=== PATIENT | female | born 1960 | race African-American/Black ===

== ENCOUNTER 2020-06-25 15:20 | Emergency (ER) | payer BC, SELFPAY ==
--- NOTE | ~2020-06-25 | XR_ITS ---
XR chest 1V portable 06/25/2020 16:14 Indication: Shortness of breath. Covid positive. Pneumonia. Procedure: AP portable chest Comparison: 07/13/2008 Findings: There are diffuse bilateral mixed interstitial and airspace infiltrates with peribronchial thickening. No pleural effusion or pneumothorax. No acute osseous abnormality. No acute osseous abnor mality. Impression: 1: Diffuse bilateral mixed interstitial and airspace infiltrates which may represent edema or pneumon ia. Reviewed, dictated and finalized at location [facility]. Impression: 1: Diffuse bilateral mixed interstitial and airspace infiltrates which may repr esent edema or pneumonia.
[2020-06-25 15:17] VITALS: BP 120/78; PULSE 98; RESP 16; TEMP 36.6; O2SAT 97
--- NOTE | 2020-06-25 15:21 | ECG_ITS ---
Measurements Intervals [place] Rate: 96 P: 53 AL: 123 QRS: 29 QRSD: 85 T: 35 QT: 353 QTc: 446 Interpretive Statements SINUS RHYTHM EARLY PRECORDIAL R/S TRANSITION BORDERLINE ST-T WAVE ABNORMALITY- INFERIOR LEADS BORDERLINE ECG Electronically Signed On 06-25-2020 16:14:01 CDT by Naveen Walker D.O.
--- NOTE | 2020-06-25 15:39 | ED.SOB ---
HPI - SOB/Dyspnea General Chief Complaint: Shortness of Breath/Dyspnea Stated Complaint: SOB, COVID + Time Seen by Provider: 06/25/20 15:25 Source: patient Mode of arrival: ambulatory Limitations: no limitations History of Present Illness HPI Narrative: 60-year-old female Patient states that Wednesday, 3 days ago, she tested Covid positive in the parking lot of [facility]. At that time she was not very symptomatic, although she had a little bit of a cough earlier in the week, and mainly got tested because she had friends who had been exposed and were being tested However subsequently she developed a cough and some shortness of breath and some muscle aches Yesterday she was seen in an emergency department elsewhere told she had pneumonia but she was discharged Today she continues to be short of breath She spoke to her doctor, and he wanted her to go to [facility] for something, but her daughter could not give her a ride so she wound up being brought here in an ambulance It is unclear if the expectation was that she was going to be sick enough to be admitted at [facility] or whether they had a monoclonal antibody infusion set for her or what Currently her room air sats are fine 96 to 99% Related Data Allergies Allergy/AdvReac Type Severity Reaction Status Date / Time erythromycin base Allergy Unknown Unverified 12/07/19 10:31 Penicillins Allergy Unknown Unverified 12/07/19 10:31 Sulfa (Sulfonamide Allergy Unknown Unverified 12/07/19 10:31 Antibiotics) Review of Systems Review of Systems: All systems reviewed & are unremarkable except as noted in HPI and below Constitutional: Constitutional: Denies chills, Reports fatigue, Reports fever(s), Denies headache(s) and Reports weakness Eyes: Eyes: Reports no additional eye complaints and Denies change in vision ENT: Denies headache(s), Denies epistaxis, Denies nasal congestion and Denies sore throat Cardiovascular: Cardiovascular: Denies chest pain, Denies leg edema, Denies palpitations and Denies dyspnea Respiratory: Respiratory: Reports cough, Reports dyspnea and Denies wheezing Gastrointestinal: Gastrointestinal: Denies abdominal pain, Denies diarrhea, Denies nausea and Denies vomiting Genitourinary: Genitourinary: Denies hematuria, Denies urinary frequency and Denies dysuria Musculoskeletal: Musculoskeletal: Reports myalgias, Denies deformity, Denies arthralgias, Denies joint swelling, Denies muscle weakness and Denies numbness Integumentary/Breasts: Skin/Breast: Denies rash and Denies wounds Neurologic: Denies headache(s), Denies focal weakness, Denies numbness and Denies weakness Psychiatric: Psychiatric: Reports no additional psychiatric complaints Endocrine: Endocrine: Reports fatigue and Denies palpitations Hematologic/Lymphatic: Hematologic/Lymphatic: Denies easy bleeding and Denies easy bruising Allergic/Immunologic: Allergic/Immunologic: Denies wheezing Exam Const: General: no acute distress, well developed, alert and awake Nutritional Appearance: well nourished Orientation/consciousness: patient oriented x3 (alert) Limitations: no limitations HENMT: Head: normocephalic and atraumatic Ears: external ears normal General nose exam: No nasal discharge present and no epistaxis Face and sinus: face symmetric Eyes: Conjunctivae: conjunctivae normal Sclera: sclerae normal EOM: EOMs intact bilaterally Neck: Neck: normal visual inspection, supple and no JVD Chest: Chest palpation & inspection: deferred Resp: Effort & Inspection: normal respiratory effort, not labored and not tachypneic Auscultation: clear to auscultation bilaterally and other (BS =) Cardio: Rate: regular rate Rhythm: regular rhythm Heart sounds: no gallops GI: Inspection: normal to inspection GI Palp: Yes Soft to palpation and No Tenderness to palpation present (GI) Back/Spine/Pelvis: Thoracic/Lumbar Spine: thoracic and lumbar spine normal to inspection Skin: General skin exam:
[2020-06-25 15:52] LABS: Basophils Percent Auto 0.3 % (0.2-1.2); Hematocrit 38.2 % (37.0-47.0); Hemoglobin 12.3 g/dL (12.0-15.0); Immature Granulocyte Absolute 0.02 K/mm3 (0.00-0.031); Immature Granulocyte Percent A 0.5 % (0-0.5); Lymphocytes Absolute Auto 1.03 K/mm3 (0.9-3.2); Lymphocytes Percent Auto 28.3 % (18.3-44.2); Mean Corpuscular HGB Conc 32.2 g/dl (32-36); Mean Corpuscular Hemoglobin 30.7 pg (26-34); Mean Corpuscular Volume 95.3 fl (80-100); Mean Platelet Volume 9.8 fl (7.4-10.4); Monocytes Absolute Auto 0.2 K/mm3 (0.1-0.6); Monocytes Percent Auto 5.5 % (2.6-8.5); Neutrophils Absolute Auto 2.4 K/mm3 (1.3-6.7); Neutrophils Percent Auto 65.4 % (45.5-73.1); Platelet Count Result 233 k/mm3 (150-375); Red Blood Count 4.01 M/mm3 (4.2-5.4); Red Cell Distribution Width 13.2 % (11.5-14.5); White Blood Count 3.6 K/mm3 (4.5-10.0)
[2020-06-25 16:08] LABS: Atypical Lymphocytes Present; Platelet Estimate Adequate (Adequate)
--- NOTE | 2020-06-25 16:18 | PC.NURSE ---
Pt walked in room with pulse oximetry. O2 saturation 93-97% while walking on room air
[2020-06-25 16:21] LABS: Alanine Aminotransferase 40 U/L (4-35); Alkaline Phosphatase 179 U/L (38-126); Anion Gap 8 mmol/L (8-16); Aspartate Amino Transferase 68 U/L (14-36); Bilirubin,Total 0.5 mg/dL (0.2-1.3); Blood Urea Nitrogen 11 mg/dL (7-17); Carbon Dioxide 30 mmol/L (22-30); Chloride 105 mmol/L (98-107); Estimated CRCL calculation 66 ml/min; Estimated Glomerular Filt Rate > 60; Glucose 88 mg/dL (65-105); Sodium 143 mmol/L (137-145)
[2020-06-25 16:27] VITALS: BP 129/80; PULSE 98; RESP 20; O2SAT 96
[2020-06-25 16:46] LABS: Potassium 3.5 mmol/L (3.4-5.0)
[2020-06-25 17:57] VITALS: BP 128/80; PULSE 96; RESP 16; O2SAT 98
== END 2020-06-25 17:58 | disposition home or self-care (01) ==
PROVIDERS: Emergency Medicine; Physician Assistant; Emergency Provider Emergency Medicine; PCP Internal Medicine
DX: U07.1 COVID-19 (principal); J12.82 Pneumonia due to coronavirus disease 2019
CPT/HCPCS: 36415; 71045; 80053; 85025; 93005; 99284

== ENCOUNTER 2023-02-25 04:05 | Emergency (ER) | payer BC, SELFPAY ==
--- NOTE | ~2023-02-25 | CT_ITS ---
Noncontrast CT scan of the lumbar spine CLINICAL HISTORY: Back pain, left-sided sciatica TECHNIQUE: Axial noncontrast imaging of the lumbar spine was performed. Sagittal and coronal reformat rufina images were constructed. Dose reduction technique was used on this scan by utilizing automated ex posure control and iterative reconstruction technique. The dose-length product (DLP) was 1018.54 mGy- cm. FINDINGS: There is no fracture or subluxation lumbar spine. Vertebral bodies maintain normal height a nd alignment. Intervertebral disc spaces are relatively well-preserved. At L1-L2, there is minimal disc bulge with mild facet arthropathy. No central canal stenosis or neura l foraminal narrowing. At L2-L3, there is minimal disc bulge with mild facet arthropathy. No central canal stenosis. There i s mild bilateral neural foraminal narrowing. At L3-L4, there is mild disc bulge with moderate facet arthropathy. Possible minimal central canal st enosis. There is mild bilateral neural foraminal narrowing. At L4-L5, there is mild disc bulge with moderate facet arthropathy. Possible minimal central canal st enosis. There is moderate to advanced left neural foraminal narrowing, and moderate right neural fora era narrowing. L5-S1, there is minimal disc bulge. No central canal stenosis or neural foraminal narrowing. Paravertebral soft tissues are unremarkable. Impression: [id number] degenerative spondylosis at the lower lumbar spine, as detailed above. Reviewed, dictated and finalized at [facility]. [employer]S TECHNICIAN Impression: [id number] degenerative spondylosis at the lower lumbar spine, as detaile d above.
[2023-02-25 04:06] VITALS: BP 131/75; PULSE 92; RESP 22; TEMP 36.3; O2SAT 100
--- NOTE | 2023-02-25 04:58 | ED.GENADULT ---
HPI - General Adult General Chief complaint: Back Pain/Injury Stated complaint: lower back, L Leg pain Time Seen by Provider: 02/25/23 04:24 History of Present Illness HPI narrative: patient is a 62-year-old female who presents emerged from with chief complaint of low back pain and pain radiating down the left leg. The patient reports that this has been ongoing for 1 week reports the pain has gotten worse worse with movement and improved with rest patient denies bowel or bladder dysfunction denies numbness or tingling denies saddle anesthesia patient reports no trauma reports no history of neoplasm. Related Data Allergies Allergy/AdvReac Type Severity Reaction Status Date / Time erythromycin base Allergy Unknown Unknown Verified 02/25/23 04:59 Penicillins Allergy Unknown Unknown Verified 02/25/23 04:59 Sulfa (Sulfonamide Allergy Unknown Unknown Verified 02/25/23 04:59 Antibiotics) doxycycline AdvReac Rash Verified 02/25/23 04:59 tetracycline AdvReac Rash Verified 02/25/23 04:59 Review of Systems Review of Systems: A 10 system review of systems was completed on the patient and is negative except for what is stated in the HPI. Nursing and ancillary documentation was reviewed. Exam Narrative: GENERAL: Well-appearing, well-nourished, and in no acute distress. HEAD: Normocephalic, atraumatic. EYES: PERRLA and EOMI. ENT: Nares clear, no rhinorrhea or epistaxis. Mucous membranes moist. NECK: Supple. CHEST: Clear to auscultation. No respiratory distress. HEART: Regular rate and rhythm. No murmur heard. Normal peripheral pulses. ABDOMEN: Soft, nontender, nondistended, normal active bowel sounds. EXTREMITIES: Normal range of motion. No edema. tenderness to palpation of the left SI joint SKIN: Warm, dry, no rash. NEURO: No focal deficits. Alert and oriented x3. No saddle anesthesia no footdrop PSYCH: Normal mood and affect. Course Vital Signs Vital signs: Vital Signs Temperature 36.3 C L 02/25/23 04:06 Pulse Rate 92 02/25/23 04:06 Respiratory Rate 22 H 02/25/23 04:06 Blood Pressure 131/75 02/25/23 04:06 Pulse Oximetry 100 02/25/23 04:06 Oxygen Delivery Room Air 02/25/23 04:06 Temperature 36.3 C L 02/25/23 04:06 Pulse Rate 90 02/25/23 05:07 Respiratory Rate 15 02/25/23 05:07 Blood Pressure 123/71 02/25/23 05:07 Pulse Oximetry 92 02/25/23 05:07 Oxygen Delivery Room Air 02/25/23 04:06 Medical Decision Making MDM Narrative Medical decision making narrative: differential diagnosis includes lumbar fracture, sciatica, degenerative disc disease CT scan of the lumbar spine [id number] degenerative spondylosis at the lower lumbar spine, as detailed above. patient's pain was controlled emerged throat usually discharged home with a Vital Signs Vital Signs: Vital Signs Temperature 36.3 C L 02/25/23 04:06 Pulse Rate 92 02/25/23 04:06 Respiratory Rate 22 H 02/25/23 04:06 Blood Pressure 131/75 02/25/23 04:06 Pulse Oximetry 100 02/25/23 04:06 Oxygen Delivery Room Air 02/25/23 04:06 Temperature 36.3 C L 02/25/23 04:06 Pulse Rate 90 02/25/23 05:07 Respiratory Rate 15 02/25/23 05:07 Blood Pressure 123/71 02/25/23 05:07 Pulse Oximetry 92 02/25/23 05:07 Oxygen Delivery Room Air 02/25/23 04:06 Discharge Plan Discharge Clinical Impression: Sciatica Patient Disposition: Home, Self-Care Condition: Stable Instructions: Antibiotic Form, Sciatica (ED), Back Pain (ED) Additional Instructions: please follow-up with your primary care provider in the next 1-2 weeks. If your symptoms worsen please return to the emergency department for re-evaluation. Prescriptions: New prednisone 20 mg tablet 40 mg PO DAILY 5 Days Qty: 10 0RF cyclobenzaprine 10 mg tablet 10 mg PO TID PRN (Reason: muscle spasm) Qty: 21 0RF hydrocodone-acetaminophen 5-325 mg tablet 1 tablet PO Q6H PRN (Reason: pain
[2023-02-25] MEDS: methylPREDNISolone SOD SUCC 125 MG VIAL IV PUSH (05:06)
[2023-02-25 05:07] VITALS: BP 123/71; PULSE 90; RESP 15; O2SAT 92
[2023-02-25] MEDS: diazePAM INJ (*CRX) 10 MG/2 ML SYRINGE 5 MG IV PUSH (05:07)
[2023-02-25] MEDS: HYDROmorphone HCL INJ (*CRX) 1 MG/ML SYR IV PUSH (05:07)
[2023-02-25] MEDS: KETOROLAC 30 MG/ML VIAL (*BKC) IV PUSH (05:07)
[2023-02-25 06:22] VITALS: BP 124/68; PULSE 85; RESP 15; O2SAT 98
[2023-02-25] MEDS: ONDANSETRON INJ 4 MG/2 ML VIAL IV PUSH (06:22)
[2023-02-25 06:28] LABS: Appearance Urine Turbid (Clear); Bacteria Urine None Seen /hpf; Bilirubin Urine Negative (Negative); Blood Urine Negative (Negative); Color Urine Yellow (Yellow); Glucose Urine UA Negative (Negative); Ketones Urine Negative (Negative); Leukocyte Esterase Ur Trace LEU/UL (Negative); Nitrate Urine Negative (Negative); Non Pathogenic Casts 0-2; Protein Urine Negative (Negative); Specific Grav Ur 1.013 (1.001-1.035); Squamous Epithelial Cell Urine Few /hpf (Few); Urobilinogen Urine 0.2 mg/dL (<2.0)
[2023-02-25 06:54] LABS: Add Urine Microscopic? YES
== END 2023-02-25 07:14 | disposition home or self-care (01) ==
PROVIDERS: Emergency Provider Emergency Medicine
DX: M54.30 Sciatica, unspecified side (principal)
CPT/HCPCS: 72131; 81001; 87086; 87088; 96374; 96375; 99284; J1170; J1885; J2405; J2930; J3360

== ENCOUNTER 2024-05-02 07:01 | Inpatient (IN) | payer BC, SELFPAY ==
[2024-05-02] VITALS (11 sets, daily range): BP systolic 114–161; BP diastolic 62–87; PULSE 80–101; RESP 13–22; TEMP 36.1–36.6; O2SAT 93–100; BMI 34.9
--- NOTE | ~2024-05-02 | CT_ITS ---
EXAMINATION: CT abdomen pelvis w con DATE: 05/11/2024 11:06 INDICATION: Small bowel obstruction. TECHNIQUE: Computed tomography (CT) of the abdomen and pelvis was performed with 100 mL Omnipaque 350 intravenous contrast. Automated exposure control and iterative reconstruction technique were employe d. The dose-length product was 1042.32 mGy-cm. COMPARISON: CT abdomen and pelvis 05/02/2024 FINDINGS: The visualized portions of the lung bases demonstrate mild atelectasis. No pleural effusion . The heart size is normal. No pericardial effusion. The liver and spleen are normal. The gallbladder is absent. The pancreas, adrenal glands, and right kidney are normal. There is a 9 mm cyst in left k idney. There is oral contrast in the small bowel and colon. The appendix is normal. There are multipl e dilated loops of small bowel without focal transition point. There is a small volume of pelvic asci janes. There are no pathologically enlarged lymph nodes. Body wall edema is noted. There is mild thorac ic and lumbar spondylosis. IMPRESSION: 1. Dilated small bowel, likely adynamic ileus. 2. Small volume of pelvic ascites. Reviewed, dictated and finalized at location A. ICAL RESEARCH NURSE COORDINATOR
--- NOTE | ~2024-05-02 | CT_ITS ---
EXAMINATION: CT abdomen pelvis w con DATE: 05/02/2024 09:33 INDICATION: Lower abdominal pain TECHNIQUE: Computed tomography (CT) of the abdomen and pelvis was performed with 100 mL Omnipaque-350 intravenous contrast. Automated exposure control and iterative reconstruction technique were employe d. The dose-length product was 788.39 mGy-cm. COMPARISON: None FINDINGS: Mild dependent atelectasis in bilateral lower lobes and discoid atelectasis at the lingula. Heart siz e normal. No pericardial or pleural effusion. 4 mm. The liver capsule contour with 4 mm underlying lo w-attenuation lesion along the posterior margin of the right hepatic lobe which appears unchanged sin ce lumbar spine CT dated favoring an indeterminate benign etiology. Common bile duct measur es up to 9 mm diameter which is likely related to prior cholecystectomy. Pancreas, spleen, bilateral adrenal glands and right kidney are normal. 6 mm cyst at the lower pole the left kidney. Normal appen sailaja. There are few loops of small bowel in the pelvis containing fluid and small amounts of pseudofec es. There are a couple closely opposed abrupt transition points in close apposition in the deep right hemipelvis with configuration suspicious for a closed loop small bowel obstruction although the inte rvening bowel is not frankly dilated. The more proximal small bowel is relatively decompressed throug hout. Bladder is normal. The uterus is not identified and has likely been surgically resected. No tawny e intraperitoneal gas or fluid. No pathologically enlarged abdominal or pelvic lymphadenopathy. Mild thoracic and lumbar spondylosis. IMPRESSION: 1. A couple abrupt transition points in close apposition in the deep pelvis with intervening fluid-fi lled but not frankly dilated small bowel suspicious for early closed loop obstruction. Dr. Portillo garcia iscussed these findings with Dr. Greenwood at 10:09 AM. Reviewed, dictated and finalized at location A. TENANCE SCHEDULER IMPRESSION: 1. A couple abrupt transition points in close apposition in the deep pelvis wit h intervening fluid-filled but not frankly dilated small bowel suspicious for e leny closed loop obstruction. Dr. Nath discussed these findings with Dr. Anaya adames at 10:09 AM.
--- NOTE | ~2024-05-02 | XR_ITS ---
EXAMINATION: XR abdomen/kub 1V DATE: 05/10/2024 11:13 INDICATION: Abdominal pain. TECHNIQUE: A supine view of the abdomen on 2 radiographs was obtained. COMPARISON: Small bowel series 05/03/2024, CT abdomen and pelvis 05/02/2024 FINDINGS: There are multiple dilated loops of small bowel. There is oral contrast in the colon, which is normal in caliber. IMPRESSION: 1. Persistently dilated small bowel, consistent with small bowel obstruction. Reviewed, dictated and finalized at location A. ASSISTANT
--- NOTE | ~2024-05-02 | XR_ITS ---
Exam: Abdomen 1V HISTORY: ng placement TECHNIQUE: Supine images of the lower chest and upper abdomen FINDINGS: Nasogastric tube extends into the contrast opacified stomach. IMPRESSION: Nasogastric tube in good position and ready for immediate use. Reviewed, dictated and finalized at location A. CTOR OF CORPORATE SALES
--- NOTE | ~2024-05-02 | XR_ITS ---
EXAMINATION: XR sm bowel follow through DATE: 05/03/2024 16:24 INDICATION: Small bowel obstruction. TECHNIQUE: Oral contrast was administered, and a time course of radiographs of the abdomen was obtain ed. Fluoroscopy of the small bowel was not performed. Fluoroscopy exposure time was 0 minutes. The to denisse number of images was 11. COMPARISON: CT abdomen and pelvis 05/02/2024 FINDINGS: There are dilated loops of small bowel. There is no contrast in the colon at 4 hours. IMPRESSION: 1. Small bowel obstruction. Reviewed, dictated and finalized at location A. TH PRACTICE MANAGER IMPRESSION: 1. Small bowel obstruction.
--- NOTE | ~2024-05-02 | XR_ITS ---
EXAMINATION: XR abdomen gastric tube insert DATE: 05/06/2024 11:05 INDICATION: Nasogastric tube placement. TECHNIQUE: An upright view of the abdomen was obtained. COMPARISON: Abdomen radiograph 05/03/2024 FINDINGS: The lower abdomen is excluded. There are no dilated loops of bowel. The nasogastric tube ti p is in the stomach. IMPRESSION: 1. Nasogastric tube tip in the stomach. Reviewed, dictated and finalized at location A. M STITCHER
--- OUTSIDE RECORDS SUMMARY | 2024-05-02 07:03 | XMS_ITS | Clinical Summary ---
Author Organization [facility] Care Team Providers Care In Store Marketer Name Role Phone Unavailable Primary Care Provider Unavailabl e Social History Tobacco Use Types Packs/Day Years Used Date Smoking Tobacco: Never Assessed Comments Unknown Sex and Gender Information Value Date Recorded Sex Assigned at Not on file Legal Sex Female 9:27 AM CDT Gender Identity Not on file Sexual Orientation Not on file Plan of Treatment Health Maintenance Due Date Last Done Comments Hepatitis C Virus (HCV) Screening 1961 TdaP Immunization 1961 Pap Smear 1982 Cervical Cancer Screening (CCS) 1991 HPV/Cotest 1991 Colonoscopy 2006 Colorectal Cancer Screening 2006 Cologuard 2011 Immunochemical Fecal Occult Blood 2011 Mammogram 2011 Pneumococcal Immunization (5 0+ years) (1 of 1 - PCV) 2011 Zoster Immunization (1 of 2) 2011 Influenza Immunization (#1) 2023 SARS-COV-2 Immunization ( season) 2023 06/07/2020 Respiratory Syncytial Virus (RSV) Immunization (Adult) (1 - 1-dose 75+ series) 2036 Hepatitis B Immunization Aged Out No longer eligible based on patient's age to complete this topic Meningococcal Immunization (ACWY) Aged Out No longer eligible based on patient's age to complete this topic Pneumococcal Immunization Combined Aged Out No longer eligible based on patient's age to complete this topic Rotavirus Immunization Aged Out No lo nger eligible based on patient's age to complete this topic
--- OUTSIDE RECORDS SUMMARY | 2024-05-02 07:03 | XMS_ITS | Encounter Summary ---
Author Organization [facility] Address 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
--- OUTSIDE RECORDS SUMMARY | 2024-05-02 07:03 | XMS_ITS | Referral Summary ---
Author Organization [facility] Healthcare Address [address] [place] [address] Care Team Providers Care Computer Aided Design Operator Name Role Phone Patrick Salvador MD Primary Care Provider [phone] Encounters Date Type Department Care Team Description 02/14/2024 2:00 PM TIE IN HAND Telemedicine [facility] Neuro Sleep [address] 6th [address] [place] [id number] Kale Tenorio MD DIANDRA on CPAP (Primary Dx) from Last 3 Months Allergies Active Allergy Reactions Criticality Noted Date Comments Amoxicillin Rash Reaction: Rash, , Erythromycin Other (See comments) Reaction: Chest pain, , , Penicillins Potassium Rash Reaction: Rash, Tetracyclines Itching Reaction: Itching, Medications naproxen (NAPROSYN) 500 mg tablet TAKE 1 TABLET BY MOUTH TWICE A DAY NEEDED FOR PAIN 60 tablet 4 Active venlafaxine XR (EFFEXOR-XR) 75 mg 24 hr capsule Take 1 capsule (75 mg total) by mouth daily 90 capsule 3 4 Active gabapentin (NEURONTIN) 300 mg capsule Take 1 capsule (300 mg total) by mouth nightly 90 capsule 3 4 Active amLODIPine (NORVASC) 5 mg tablet TAKE 1 TABLET (5 MG TOTAL) BY MOUTH DAILY. 90 tablet 3 4 Active glycopyrrolate (ROBINUL) 1 mg tablet PLEASE SEE ATTACHED FOR DETAILED DIRECTIONS 4 Active nystatin-triamci nolone ointmentIndicati ons:cutaneous candidiasis Apply topically 2 (two) times a day Apply to external vulva skin BID for 7-14 days then use prn 30 g 1 4 Active Active Problems Problem Noted Date Diagnosed Date Episodic tension-type headache, not intractable 2022 Insomnia 01/17/2021 Recurrent major depressive disorder 08/13/2016 Overview (08/21/2016): Major depression, recurrent, chronic Assessment & Plan (09/28/2023 12:30 PM CDT): Continue with venlafaxine. Assessment & Plan (09/23/2021 2:22 PM CDT): Mood stable on venlafaxine. Benign hypertension 08/08/2015 Overview (07/03/2016): Benign hypertension Assessment & Plan (09/28/2023 12:30 PM CDT): Target BP less than 130/80. Continue current diet and amlodipine. Assessment & Plan (09/25/2022 3:07 PM CDT): Target BP less than 130/80. Continue current diet, exercise and amlodipine. Check CBC, CMP and FLP. Assessment & Plan (09/23/2021 2:22 PM CDT): Target BP <140/90. Continue current diet and amlodipine. Check CBC, CMP and FLP. Torn cartilage 03/21/2015 Obstructive sleep apnea syndrome 09/07/2014 Overview (07/02/2016): Obstructive sleep apnea Assessment & Plan (09/28/2023 12:30 PM CDT): Continue CPAP; using nightly benefit. Migraine without aura and wi thout status migrainosus, not intractable 05/16/2014 Overview (07/02/2016): Migraine Assessment & Plan (09/28/2023 12:29 PM CDT): Continue current diet, gabapentin, p.r.n. naproxen Assessment & Plan (09/25/2022 3:06 PM CDT): Continue combination of venlafaxine and gabapentin. Managed by Neurology. History of colonic polyps 05/16/2014 Overview (07/02/2016): Personal history of colonic polyps Assessment & Plan (09/28/2023 12:30 PM CDT): Up-to-date on colonoscopy. Assessment & Plan (09/25/2022 3:07 PM CDT): Up-to-date on colonoscopy. 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 Managed by Neurology. Anxiety 05/18/2007 Overview (07/09/2017): Description: for the past year Resolved Problems Problem Noted Date Diagnosed Date Resolved Date Hypertension 08/10/2013 05/07/2017 Overview (07/03/2016): Hypertension Anaclitic depression 03/11/2010 018 Immunizations Name Administration Dates Next Due Influenza, Quadrivalent, Spl it, Preservative Free, Intramuscular 12/28/2019,12/27/2018 Influenza, Trivalent, IM (MDV) 01/10/2015,2013 Influenza, Unspecified 12/27/2021,2017,12/27/2017,12/27,12/27/2016 Pfizer SARS-CoV-2 Monovalent Vaccination (12+ Yrs) PURPLE 03/19/2021,09/19/2020,06/07/2020 Pfizer Sars-Cov-2 Bivalent V accination (12+ YRS) 02/26/2022 ZOSTER Recombinant 12/04/2021,09/23/2021 Social History Tobacco Use Types Packs/Day Years Used Date Smoking Tobacco: Former Smokeless Tobacco: Never Tobacco Cessation:Counseling Given: Not Answered Alcohol Use Standard Drinks/Week Comments No 0 (1 standard drink = 0.6 oz pur e alcohol) AUDIT-C Answer Date Recorded Q1: How often do you have a drink containing alc ohol? 2-4 times a month 01/06/2023 Q2: How many drinks containi ng alcohol do you have on a typical day when you are drinking? 1 or 2 01/06/2023 Q3: How often do you have si x or more drinks on one occasion? Never 01/06/2023 PHQ-2 Answer Date Recorded PHQ-2 Total Score 0 09/28/2023 Comments No Sex and Gender Information Value Date Recorded Sex Assigned at Not on file Legal Sex Female 12:35 AM TIE IN HAND Gender Identity Female 01/10/2021 12:31 PM CDT Sexual Orientation Straight 01/10/2021 12 :31 PM CDT Last Filed Vital Signs Vital Sign Reading Time Taken Comments Blood Pressure 126/83 10/04/2023 7:57 AM CDT Pulse 107 09/28/2023 11:05 AM CDT Temperature 36.4 ??C (97.5 ??F) 07/06/2023 3:23 PM CD T Respiratory Rate 18 10/15/2020 11:20 AM CDT Oxygen Saturation 99% 09/28/2023 11:05 AM CDT Inhaled Oxygen Concentration - - Weight 85.8 kg (189 lb 3.2 oz) 10/04/2023 7:57 A M CDT Height 157.5 cm (5' 2 ) 10/04/2023 7:57 AM CDT Body Mass Index 34.61 10/04/2023 7:57 AM CDT Plan of Treatment Not on file Procedures Procedure Name Priority Date/Time Associated Diagnosis Comments SCREENING MAMMOGRAM BILATERAL W JUVENAL Schedule Routine, Read Routine (OP Routine) 11/09/2023 2:18 PM CDT Screening mammogram, encounter for COLONOSCOPY 10/15/2020 10:04 AM CDT from Last 3 Months or Most Recently Relevant to Health Maintenance Results * Screening Mammogram Bilateral W Juvenal (11/09/2023 2:18 PM CDT) Anatomical Region Laterality Modality Breast Bilateral Mammography Narrative 11/11/2023 8:55 AM CDT Mammogram Technique: Bilateral Digital Breast Tomosynthesis, Bilateral C-view 2D Screening mammogram. ??Views obtained: ??bilateral craniocaudal and bilateral mediolateral oblique. ??Computer Aided Detection was performed. Mammogram Findings: The present examination has been compared to prior imaging studies performed at [facility] on 09/04/2020, 10/03/2021 and 10/29/2022. There are scattered areas of fibroglandular density. There is no suspicious abnormality in either breast. Impression: There is no mammographic evidence of malignancy. Annual screening mammography is recommended. OVERALL FINAL ASSESSMENT: BI-RADS CATEGORY 1: ??Negative. Procedure Note Tigist Ayala MD - 11/11/2023 Mammogram Technique: Bilateral Digital Breast Tomosynthesis, Bilateral C-view 2D Screening mammogram. Views obtained: bilateral craniocaudal and bilateral mediolateral oblique. Computer Aided Detection was performed. Mammogram Findings: The present examination has been compared to prior imaging studies performed at [facility] on 09/04/2020, 10/03/2021 and 10/29/2022. There are scattered areas of fibroglandular density. There is no suspicious abnormality in either breast. Impression: There is no mammographic evidence of malignancy. Annual screening mammography is recommended. OVERALL FINAL ASSESSMENT: BI-RADS CATEGORY 1: Negative. us Self Screening Mammogram IMG MAMMO PROCEDURES Fi nal Result * COLONOSCOPY (10/15/2020 10:04 AM CDT) Anatomical Region Laterality Modality Other Narrative Procedure Note Julien Bland MD - 10/15/2020 10:04 AM CDT ENDOSCOPY LAB Patient Name: Yusra Mcmillan Procedure Date: 10/15/2020 10:04 AM Date of : 1960 Admit Type: Outpatient Age: 60 Gender: Female Attending MD: Julien Bland M.D. Room: [facility] ENDOSCOPY ROOM 04 Note Status: Finalized Procedure: Colonoscopy Indications: Surveillance: Personal history of adenomatouspolyps, though none on last colonoscopy 08/2015 Providers: Julien Bland M.D. Referring MD: Patrick Salvador M.D. Medicines: Monitored Anesthesia Care Complications: No immediate complications. Estimated Blood Loss: Estimated blood loss was minimal. Procedure: Pre-Anesthesia Assessment: - The risks and benefits of the procedure and the sedation options and risks were discussed with the patient. All questions were answered and informed consent was obtained. - Immediately prior to administration ofmedications, the patient was re-assessed for adequacy to receive sedatives. - Assessment per Anesthesia The benefits, risks and alternatives of theprocedure and sedation were discussed and informed consentwas obtained. All questions were answered. Please referto the signed informed consent document in the medical record. The scope was passed under direct vision.The [id number] was introduced through the anusand advanced to the cecum, identified by appendiceal orifice and ileocecal valve. The colonoscopy was performed without difficulty. The patient tolerated the procedure well. The quality of the bowel preparation was adequate. The quality of the bowel preparation was evaluated using the BBPS (BostonBowel Preparation Scale) with scores of: Right Colon = 3 (entire mucosa seen well with no residual staining, small fragments of stool or opaque liquid),Transverse Colon = 3 (entire mucosa seen well with no residual staining, small fragments of stool or opaqueliquid) and Left Colon = 3 (entire mucosa seen well with no residual staining, small fragments of stool oropaque liquid). The total BBPS score equals 9. The bowel preparation used was Miralax. Findings: The perianal and digital rectal examinations were normal. Pertinent negatives include no palpable rectal lesions. Multiple sessile polyps were found in the recto-sigmoid colon. The polyps were small in size. Several of thesee polyps were removed witha cold snare for sampling. Resection and retrieval were complete. The exam was otherwise without abnormality on direct and retroflexion views. Impression: - Multiple small hyperplastic appearing polyps atthe recto-sigmoid colon. Several were removed with acold snare for sampling. Resected and retrieved. - The examination was otherwise normal on directand retroflexion views. Recommendation: - Await pathology results. - Repeat colonoscopy for surveillance based on pathology results. If the polyps are hyperplastic, repeat in 10 years. If the polyps are adenomatous, recommend flex sig within 6 months to complete resection of remaining polyps. - Return to referring physician as previously scheduled. Attending Participation: I personally performed the entire procedure. Electronically signed by Julien Bland MD Julien Bland M.D. 10/15/2020 11:00:42 AM Number of Addenda: 0 Note Initiated On: 10/15/2020 10:04 AM Julien Mckeon MD ENDOSCOPY PROCEDURES Final Res ult from Last 3 Months or Most Recently Relevant to Health Maintenance Insurance ANTHEM ACCESS CHOICE ANTHEM ACCESS CHOICE ANTHEM ACCESS CHOICE Advance Directives For more information, please contact: [phone] * Full Code (Latest Code Status on File) Date Activated Date Inactivated Comments 10/15/2020 9:00 AM 10/15/2020 3:31 PM Care Teams Computer Aided Design Operator Relationship Specialty Start Date End Date Patrick Salvador MD [facility] [address] [address] PCP - General 06/26/16
--- OUTSIDE RECORDS SUMMARY | 2024-05-02 07:03 | XMS_ITS | Clinical Summary ---
Author Organization [facility] Address [address] Leighn: Epic Prelude ADT [place] [address] Care Team Providers Care Rate Examiner Name Role Phone Unavailable Primary Care Provider Unavailabl e Social History Tobacco Use Types Packs/Day Years Used Date Smoking Tobacco: Never Assessed Comments Unknown Sex and Gender Information Value Date Recorded Sex Assigned at Not on file Legal Sex Female 4:39 AM BEHAVIORAL HEALTH RN Gender Identity Not on file Sexual Orientation Not on file Plan of Treatment Health Maintenance Due Date Last Done Comments DTAP/TDAP/TD VACCINES (1 - Tdap) 1980 CERVICAL CANCER SCREENING 1991 BREAST CANCER SCREENING 2001 COLORECTAL SCREENING 2006 Colorectal Cancer Screening 2006 FIT-DNA Q 3 years 2006 FIT/FOBT Q 1 year 2006 Flex Sig/CT Colonography Q 5 years 2006 ZOSTER VACCINE (1 of 2) 2011 INFLUENZA VACCINE (#1) 2023 RSV VACCINE (60+ or ) (1 - 1-dose 75+ series) 2036 PNEUMOCOCCAL VACCINE 0-64 YEARS Aged Out No longer eligible based on patient's age to complete this topic
--- OUTSIDE RECORDS SUMMARY | 2024-05-02 07:03 | XMS_ITS | Clinical Summary ---
Author Organization [facility] Address [address] [place] [address]. [place] [address] [place] [address] Care Team Providers Care Denitrator Operator Name Role Phone None, Provider MD Primary Care Provider Unavaila ble Allergies Active Allergy Reactions Criticality Noted Date Comments Amoxicillin Rash Low 06/23/2020 Erythromycin Chest pressure 06/23/2020 Penicillins Rash Low 06/23/2020 Social History Tobacco Use Types Packs/Day Years Used Date Smoking Tobacco: Never Smokeless Tobacco: Never Alcohol Use Standard Drinks/Week Comments Not Currently 0 (1 standard drink = 0.6 oz pur e alcohol) Comments No Sex and Gender Information Value Date Recorded Sex Assigned at Not on file Legal Sex Female 10:09 AM CDT Gender Identity Not on file Sexual Orientation Not on file Last Filed Vital Signs Vital Sign Reading Time Taken Comments Blood Pressure 136/85 06/23/2020 2:33 PM CDT Pulse 96 06/23/2020 2:33 PM CDT Temperature 38.3 ??C (101 ??F) 06/23/2020 10:15 AM CD T Respiratory Rate 20 06/23/2020 2:33 PM CDT Oxygen Saturation 97% 06/23/2020 2:33 PM CDT Inhaled Oxygen Concentration - - Weight 81.6 kg (180 lb) 06/23/2020 10:15 AM CDT Height 165.1 cm (5' 5 ) 06/23/2020 10:15 AM CDT Body Mass Index 29.95 06/23/2020 10:15 AM CDT Plan of Treatment Health Maintenance Due Date Last Done Comments Cervical Cancer Screening Pap Smear (Age 30 to 64) Every 3 Years 1960 Colorectal Cancer Screening Colonoscopy (10 Years) 1961 Annual Physical 1964 Hepatitis C 1979 DTaP, Tdap and Td Vaccines (1 - Tdap) 1980 Cervical Cancer Screening Pap with HPV Testing (Age 30 to 64) Every 5 Years 1991 Cervical Cancer Screening with HPV 1991 Mammogram Screening 2001 Zoster Vaccines (1 of 2) 2011 COVID-19 Vaccine (2 - season) 2023 06/07/2020 Influenza Adult (#1) 2023 12/27/2018, 12/27/2017, 12/27/2016, Additional history exists RSV Immunization or 60+ Years (1 - 1-dose 75+ series) 2036 Meningococcal B Vaccine Aged Out No l onger eligible based on patient's age to complete this topic Meningococcal Vaccine Aged Out No francisca dane eligible based on patient's age to complete this topic Pneumococcal Vaccine: Pediatrics (0 to 5 Years) and At-Risk Patients (6 to 64 Years) Aged Out No longer eligible based on patient's age to complete this topic RSV Immunizations Under 20 Months Aged Out No longer eligible based on patient's age to complete this topic Insurance [facility] Care Teams Denitrator Operator Relationship Specialty Start Date End Date None, Provider, PCP - General 06/23/20
--- OUTSIDE RECORDS SUMMARY | 2024-05-02 07:03 | XMS_ITS | Clinical Summary ---
Author Organization [facility] Healthcare Address [address] [place] [address] Care Team Providers Care Surgical Lead Name Role Phone Patrick Salvador MD Primary Care Provider [phone] Allergies Active Allergy Reactions Criticality Noted Date [...] Overview (07/03/2016): Hypertension Anaclitic depression 03/11/2010 018 Encounters Date Type Department Care Team Description 02/14/2024 2:00 PM ERGONOMICS TECHNICIAN Telemedicine [facility] Neuro Sleep [address] 6th [address] [place] [address] Kale Tenorio MD DIANDRA on CPAP (Primary Dx) from Last 3 Months Immunizations Name Administration Dates Next Due Influenza, Quadrivalent, Spl it, Preservative Free, Intramuscular 12/28/2019,12/27/2018 Influenza, Trivalent, IM (MDV) 01/10/2015,2013 Influenza, Unspecified 12/27/2021,2017,12/27/2017,12/27,12/27/2016 Pfizer SARS-CoV-2 Monovalent Vaccination (12+ Yrs) PURPLE 03/19/2021,09/19/2020,06/07/2020 Pfizer Sars-Cov-2 Bivalent V accination (12+ YRS) 02/26/2022 ZOSTER Recombinant 12/04/2021,09/23/2021 Surgical History Surgery Date Site/Laterality Comments HYSTERECTOMY Hysterectomy TONSILLECTOMY Tonsillectomy CHOLECYSTECTOMY Cholecystectomy OTHER SURGICAL HISTORY fibroid uterus: Hysterectomy, total abdominal, BSO OTHER SURGICAL HISTORY Right meniscus tear: Arthroscopy knee Medical History Medical History Date Comments Hx Other Medical fibroid uterus Hx Other Medical meniscus tear Family History Medical History Relation Name Comments Lung cancer Father Cancer, lung; C ause of : Cancer, lung Migraines Father Migraines; Heart attack Maternal Grandmother Myocard ial infarction; Diabetes type II Mother Diabetes me llitus type 2; Hypertension Mother Hypertension; Other Mother Alive and well; Hyperlipidemia Other Family histor y of Hyperlipidemia; Breast cancer Sister 2 Cancer, breast ; Rheum arthritis Sister 3 Rheumatoid a rthritis; Other Sister 4 Alive and well; Relation Name Status Comments Father Maternal Grandmother Mother Alive Other Sister 1 Alive Sister 2 Sister 3 Sister 4 Social History Tobacco Use Types Packs/Day Years [...] on file Legal Sex Female 12:35 AM ERGONOMICS TECHNICIAN Gender Identity Female 01/10/2021 12:31 PM CDT Sexual Orientation Straight 01/10/2021 12 :31 PM CDT Obstetrics History Para Term AB IAB SAB Ectopic Multiple Livin g Live Births 3 2 2 1 2 2 Date Outcome GA Total Labor Labor/2nd/3rd Weight Sex Type Anes PTL Nathaly A1 A5 Name Clin 1979 AB 12w0 d 1993 Term F Vag-S pont Living 1996 Term M Vag-S pont Living Last Filed Vital Signs Vital Sign Reading [...] 10/04/2023 7:57 AM CDT Plan of Treatment Health Maintenance Due Date Last Done Comments Hepatitis C Screening 1960 DTaP/Tdap/Td Vaccine (1 - Tdap) 1972 Hepatitis B Screening 1979 Covid-19 Vaccine ( season) 2023 02/26/2022, 03/19/2021, 09/19/2020, Additional history exists Depression Screening 09/27/2024 09/28/2023, 09/25/2022, 09/23/2021, Additional history exists Regular Well Visit/Exam 18-64 09/27/2024 09/28/2023, 09/25/2022, 09/23/2021, Additional history exists Breast Cancer Screening-Mammogram 11/08/2024 11/09/2023, 10/29/2022, 10/03/2021, Additional history exists Colon Cancer Screening-Colonoscopy 10/15/2030 10/15/2020, 09/12/2015 Colon Cancer Screening-CT Colonography Discontinued 10/15/2020, 09/12/2015 Colon Cancer Screening-DNA Stool Discontinued 10/15/2020, 09/12/2015 Colon Cancer Screening-FIT Discontinued 10/15/2020, Colon Cancer Screening-Sigmoidoscopy Discontinued 10/15/2020, 09/12/2015 Zoster Vaccine Completed 12/04/2021, 09/23/2021 Influenza Vaccine Completed 01/24/2024, , 12/27/2021, Additional history exists Pneumococcal vaccine <65 Aged Out No longer eligible based on patient's age to complete this topic Procedures Procedure Name Priority Date/Time Associated Diagnosis [...] compared to prior imaging studies performed at [facility] on 09/04/2020, 10/03/2021 and 10/29/2022. There are [...] compared to prior imaging studies performed at [facility] on 09/04/2020, 10/03/2021 and 10/29/2022. There are [...] Female Attending MD: Julien Bland M.D. Room: [facility] ENDOSCOPY ROOM 04 Note Status: [...] The scope was passed under direct vision.The [id number] was introduced through the anusand advanced to [...] 0 Note Initiated On: 10/15/2020 10:04 AM us Julien Mckeon MD ENDOSCOPY PROCEDURES Final Res ult from Last 3 Months or Most Recently Relevant to Health Maintenance Insurance [employer] [facility] ACCESS CHOICE Advance Directives For more information, please contact: [phone] * Full Code (Latest Code Status on File) Date Activated Date Inactivated Comments 10/15/2020 9:00 AM 10/15/2020 3:31 PM Care Teams Surgical Lead Relationship Specialty Start Date End Date Patrick Salvador MD [facility] [address] [place] [address] PCP - General 06/26/16
[2024-05-02] MEDS: ONDANSETRON INJ 4 MG/2 ML VIAL IV PUSH ×4 (08:47→22:45)
[2024-05-02] MEDS: MORPHINE SULFATE (*CRX) 4 MG/ML INJ IV PUSH (08:48)
[2024-05-02 08:50] LABS: Basophils Percent Auto 0.3 % (0.2-1.2); Hemoglobin 13.3 g/dL (12.0-15.0); Immature Granulocyte Absolute 0.02 K/mm3 (0.00-0.031); Immature Granulocyte Percent A 0.3 % (0-0.5); Lymphocytes Absolute Auto 0.94 K/mm3 (0.9-3.2); Lymphocytes Percent Auto 12.4 % (18.3-44.2); Mean Corpuscular HGB Conc 33.3 g/dl (32-36); Mean Corpuscular Hemoglobin 31.4 pg (26-34); Mean Corpuscular Volume 94.6 fl (80-100); Mean Platelet Volume 9.9 fl (7.4-10.4); Monocytes Absolute Auto 0.3 K/mm3 (0.1-0.6); Monocytes Percent Auto 3.9 % (2.6-8.5); Neutrophils Absolute Auto 6.3 K/mm3 (1.3-6.7); Neutrophils Percent Auto 83.1 % (45.5-73.1); Platelet Count Result 292 k/mm3 (150-375); Red Blood Count 4.23 M/mm3 (4.2-5.4); Red Cell Distribution Width 13.4 % (11.5-14.5); White Blood Count 7.6 K/mm3 (4.5-10.0)
[2024-05-02 09:01] LABS: Alanine Aminotransferase 21 U/L (6-35); Albumin Level 4.9 g/dL (3.5-5.1); Alkaline Phosphatase 159 U/L (38-126); Anion Gap 14 mmol/L (4-12); Aspartate Amino Transferase 26 U/L (14-36); Bilirubin,Total 0.5 mg/dL (0.2-1.3); Blood Urea Nitrogen 8 mg/dL (7-17); Calcium 10.3 mg/dL (8.4-10.2); Carbon Dioxide 26 mmol/L (22-30); Chloride 100 mmol/L (98-107); Estimated CRCL calculation 83 ml/min; Estimated Glomerular Filt Rate > 60; Glucose 129 mg/dL (65-110); Lipase 55 U/L (23-300); Potassium 3.9 mmol/L (3.4-5.0); Sodium 140 mmol/L (137-145)
--- OUTSIDE RECORDS SUMMARY | 2024-05-02 09:52 | XMS_ITS | Referral Summary ---
Author Organization [facility] Healthcare Address [address] [place] [address] Care Team Providers Care It Support Manager Name Role Phone Patrick Salvador MD Primary Care Provider [phone] Encounters Date Type Department Care Team Description 02/14/2024 2:00 PM FBI PROFILER Telemedicine [facility] Neuro Sleep [address] 6th [address] [place] [id number] Kale Tenorio MD DIANDRA on CPAP (Primary [...] on file Legal Sex Female 12:35 AM FBI PROFILER Gender Identity Female 01/10/2021 12:31 PM CDT [...] compared to prior imaging studies performed at [facility] on 09/04/2020, 10/03/2021 and 10/29/2022. There are [...] compared to prior imaging studies performed at [facility] on 09/04/2020, 10/03/2021 and 10/29/2022. There are [...] Female Attending MD: Julien Bland M.D. Room: [facility] ENDOSCOPY ROOM 04 Note Status: Finalized Procedure: [...] The scope was passed under direct vision.The [id number] was introduced through the anusand advanced to [...] Advance Directives For more information, please contact: [phone] * Full Code (Latest Code Status on File) Date Activated Date Inactivated Comments 10/15/2020 9:00 AM 10/15/2020 3:31 PM Care Teams It Support Manager Relationship Specialty Start Date End Date Patrick Salvador MD [facility] [address] [address] PCP - General 06/26/16
--- OUTSIDE RECORDS SUMMARY | 2024-05-02 09:52 | XMS_ITS | Clinical Summary ---
Author Organization [facility] Care Team Providers Care Flat Bed Operator Name Role Phone Unavailable Primary Care Provider [...]
--- OUTSIDE RECORDS SUMMARY | 2024-05-02 09:52 | XMS_ITS | Encounter Summary ---
Author Organization [facility] Address [address] [place] [address] Care Team Providers Care Drafter Construction Name Role Phone Unavailable Primary Care Provider Unavailabl e Encounter Details Date Type Department Care Team (Late st Contact Info) Description 08/20/1999 Outpatient Historical HIS MD Kosta FIGUEROA Carolyn, MD [address] [place] [address] Social History Tobacco Use Types Packs/Day Years Used Date Smoking Tobacco: Never Assessed Comments Unknown Sex and Gender Information Value Date Recorded Sex Assigned at Not on file Legal Sex Female 4:39 AM PLASTICS SPREADING MACHINE OPERATOR Gender Identity Not on file Sexual Orientation Not on file documented as of this encounter Plan of Treatment Not on file documented as of this encounter Visit Diagnoses Not on filedocumented in this encounter
--- OUTSIDE RECORDS SUMMARY | 2024-05-02 09:52 | XMS_ITS | Clinical Summary ---
Author Organization [facility] Address [address] [place] [address]. [place] [address] [place] [address] Care Team Providers Care Plant Sprayer Name Role Phone None, Provider MD Primary [...] patient's age to complete this topic Insurance [facility] Care Teams Plant Sprayer Relationship Specialty Start Date End Date None, Provider, PCP - General 06/23/20
--- OUTSIDE RECORDS SUMMARY | 2024-05-02 09:52 | XMS_ITS | Clinical Summary ---
Author Organization [facility] Address [address] [place] [address] Care Team Providers Care Artist Representative Name Role Phone Patrick Salvaodr MD Primary Care Provider Allergies Active Allergy Reactions Criticality Noted Date [...] Department Care Team Description 02/14/2024 2:00 PM IC DESIGN MANAGER Telemedicine [facility] Neuro Sleep [address] 6th [address] [place] [address] Klae Tenorio MD DIANDRA on CPAP (Primary Dx) [...] on file Legal Sex Female 12:35 AM IC DESIGN MANAGER Gender Identity Female 01/10/2021 12:31 PM CDT [...] compared to prior imaging studies performed at [facility] on 09/04/2020, 10/03/2021 and 10/29/2022. There are [...] compared to prior imaging studies performed at [facility] on 09/04/2020, 10/03/2021 and 10/29/2022. There are [...] Female Attending MD: Julien Bland M.D. Room: [facility] ENDOSCOPY ROOM 04 Note Status: Finalized Procedure: [...] The scope was passed under direct vision.The [id number] was introduced through the anusand advanced to [...] Most Recently Relevant to Health Maintenance Insurance [employer] [facility] ACCESS CHOICE Advance Directives For more information, please contact: [phone] * Full Code (Latest Code Status on File) Date Activated Date Inactivated Comments 10/15/2020 9:00 AM 10/15/2020 3:31 PM Care Teams Artist Representative Relationship Specialty Start Date End Date Patrick Salvador MD [facility] [facility] [address] [place] [address] PCP - General 06/26/16
--- OUTSIDE RECORDS SUMMARY | 2024-05-02 09:52 | XMS_ITS | Clinical Summary ---
Author Organization [facility] Address [address] Leighn: Epic Prelude [place]T [place] [id number] Care Team Providers Care Orthotics Technician Name Role Phone Unavailable Primary Care Provider Unavailabl e Social History Tobacco Use Types Packs/Day Years Used Date Smoking Tobacco: Never Assessed Comments Unknown Sex and Gender Information Value Date Recorded Sex Assigned at Not on file Legal Sex Female 4:39 AM GLOBAL COORDINATOR Gender Identity Not on file Sexual Orientation [...]
[2024-05-02 09:55] LABS: Add Urine Microscopic? YES; Appearance Urine Clear (Clear); Bacteria Urine None Seen /hpf; Bilirubin Urine Negative (Negative); Blood Urine Negative (Negative); Color Urine Yellow (Yellow); Glucose Urine UA Negative (Negative); Ketones Urine Negative (Negative); Leukocyte Esterase Ur Trace LEU/UL (Negative); Nitrate Urine Negative (Negative); Non Pathogenic Casts 0-2; Protein Urine Negative (Negative); RBC Urine 0-2 /hpf (0-2); Specific Grav Ur 1.021 (1.001-1.035); Squamous Epithelial Cell Urine Occasional /hpf (Few); WBC Urine 0-5 /hpf (0-3); pH Urine 7.5 (5.0-9.0)
[2024-05-02] MEDS: HYDROmorphone HCL INJ (*CRX) 1 MG/ML SYR IV PUSH ×3 (10:32→22:45)
[2024-05-02] MEDS: SODIUM CHLORIDE 0.9% IV 1,000 ML 150 ML IV CONT (10:35)
--- NOTE | 2024-05-02 11:01 | ED.ABDPAIN ---
HPI - Abdominal Pain General Chief Complaint: Abdominal Pain Stated Complaint: pelvic pain Time Seen by Provider: 05/02/24 08:28 Source: patient and family Mode of arrival: ambulatory Limitations: no limitations History of Present Illness HPI narrative: 64-year-old with a history of hypertension, status post hysterectomy here with complaints of severe lower abdominal pain which started 10:30 p.m. she states the pain is in the lower abdomen radiating into her right flank area. She denies any fever or chills , denies here had a cystoscopy. No previous history of diverticulosis or diverticulitis. MD elicited complaint: abdominal pain Pertinent past history: none Onset (ago): day(s) (1) Pain Consistency: constant Location: RLQ and suprapubic Severity: severe Quality: aching Radiation: R flank Exacerbating factors: nothing Relieving factors: nothing Associated symptoms: denies other symptoms Related Data Home Medications ?Medication ?Instructions ?Recorded ?Confirmed ?Last Taken ?Type amlodipine 5 mg tablet 5 mg PO DAILY 05/02/24 05/02/24 05/01/24 History gabapentin 300 mg capsule 300 mg PO QHS 05/02/24 05/02/24 05/01/24 History glycopyrrolate 1 mg tablet 1 mg PO BID 05/02/24 05/02/24 05/01/24 History venlafaxine 75 mg capsule,extended 75 mg PO DAILY 05/02/24 05/02/24 05/01/24 History release 24 hr Allergies Allergy/AdvReac Type Severity Reaction Status Date / Time erythromycin base Allergy Unknown Unknown Verified 05/02/24 08:28 Penicillins Allergy Unknown Unknown Verified 05/02/24 08:28 Sulfa (Sulfonamide Allergy Unknown Unknown Verified 05/02/24 08:28 Antibiotics) doxycycline AdvReac Rash Verified 05/02/24 08:28 tetracycline AdvReac Rash Verified 05/02/24 08:28 Review of Systems Review of Systems: All systems reviewed & are unremarkable except as noted in HPI and below Constitutional: Constitutional: Reports no additional constitutional complaints Eyes: Eyes: Reports no additional eye complaints ENT: Reports system reviewed and no additional complaints, except as documented Cardiovascular: Cardiovascular: Reports no additional cardiovascular complaints Respiratory: Respiratory: Reports no additional respiratory complaints Gastrointestinal: Gastrointestinal: Reports as per HPI Musculoskeletal: Musculoskeletal: Reports no additional musculoskeletal complaints Exam Narrative: GENERAL: Well-appearing, well-nourished, and in no acute distress. HEAD: Normocephalic, atraumatic. EYES: PERRLA and EOMI. ENT: Nares clear, no rhinorrhea or epistaxis. Mucous membranes moist. NECK: Supple. CHEST: Clear to auscultation. No respiratory distress. HEART: Regular rate and rhythm. No murmur heard. Normal peripheral pulses. ABDOMEN: Soft,tenderness in the right lower and suprapubic area , nondistended, . EXTREMITIES: Normal range of motion. No edema. SKIN: Warm, dry, no rash. NEURO: No focal deficits. Alert and oriented x3. PSYCH: Normal mood and affect. Course Course Emergency Course: Patient still remains uncomfortable enough to she received morphine for pain. Discussed lab work and CT findings with the patient and the family. When given hydromorphone for pain. Agreeable with admission. Discussed with the dr. Mora and . Vital Signs Vital signs: Vital Signs Temperature 36.6 C 05/02/24 07:07 Pulse Rate 94 05/02/24 07:07 Respiratory Rate 18 05/02/24 07:07 Blood Pressure 140/85 05/02/24 07:07 Pulse Oximetry 100 05/02/24 07:07 Oxygen Delivery Room Air 05/02/24 07:07 Temperature 36.6 C 05/02/24 07:07 Pulse Rate 89 05/02/24 10:37 Respiratory Rate 13 05/02/24 10:37 Blood Pressure 145/85 H 05/02/24 10:37 Pulse Oximetry 96 05/02/24 10:37 Oxygen Delivery Room Air 05/02/24 07:07 MDM - Abdominal Pain Differential Diagnosis Differential diagnosis: Likely abdominal pain, calculus of kidney, diverticulitis, gastroenteritis and small bowel obstruction Medical Records Attestation: I reviewed the patient's medical records. Lab Data Attestation: I reviewed the patient's lab results. 05/02/24 08:40 05/02/24 08:40 Labs: Lab Results 05/02/24 05/02/24 Range/Units 08:40 09:42 WBC 7.6 (4.5-10.0) K/mm3 RBC 4.23 (4.2-5.4) M/mm3 Hgb 13.3 (12.0-15.0) g/dL Hct 40.0 (37.0-47.0) % MCV 94.6 (80-100) fl MCH 31.4 (26-34) pg MCHC 33.3 (32-36) g/dl RDW 13.4 (11.5-14.5) % Plt Count 292 (150-375) k/mm3 MPV 9.9 (7.4-10.4) fl Immature Gran % (Auto) 0.3 (0-0.5) % Neut % (Auto) 83.1 H (45.5-73.1) % Lymph % (Auto) 12.4 L (18.3-44.2) % [place] % (Auto) 3.9 (2.6-8.5) % Eos % (Auto) 0.0 (0-4.4) % Baso % (Auto) 0.3 (0.2-1.2) % Lymph # (Auto) 0.94 (0.9-3.2) K/mm3 [place] # (Auto) 0.3 (0.1-0.6) K/mm3 Eos # (Auto) 0.0 (0-0.3) K/mm3 Baso # (Auto) 0.0 (0.0-0.1) K/mm3 Abs Immat Gran (auto) 0.02 (0.00-0.031) K/mm3 Absolute Neuts (auto) 6.3 (1.3-6.7) K/mm3 Absolute Nucleated RBC 0.000 (0.0-0.012) K/mm3 Nucleated RBC % 0.0 (0.0-0.2) % Sodium 140 (137-145) mmol/L Potassium 3.9 (3.4-5.0) mmol/L Chloride 100 (98-107) mmol/L Carbon Dioxide 26 (22-30) mmol/L Anion Gap 14 H (4-12) mmol/L BUN 8 (7-17) mg/dL Creatinine 0.59 L (0.7-1.0) mg/dL Estim Creat Clear Calc 83 ml/min Estimated GFR > 60 (59 - ) Glucose 129 H (65-110) mg/dL Calcium 10.3 H (8.4-10.2) mg/dL Total Bilirubin 0.5 (0.2-1.3) mg/dL AST 26 (14-36) U/L ALT 21 (6-35) U/L Alkaline Phosphatase 159 H (38-126) U/L Total Protein 9.0 H (6.3-8.2) g/dL Albumin 4.9 (3.5-5.1) g/dL Lipase 55 (23-300) U/L Urine Color Yellow (Yellow) Urine Appearance Clear (Clear) Urine pH 7.5 (5.0-9.0) Ur Specific [place] 1.021 (1.001-1.035) Urine Protein Negative (Negative) mg/dL Urine Glucose (UA) Negative (Negative) mg/dL Urine Ketones Negative (Negative) mg/dL Ur Blood (Man) Negative (Negative) Urine Nitrate Negative (Negative) Urine Bilirubin Negative (Negative) Urine Urobilinogen 1.0 (<2.0) mg/dL Leukocyte Esterase Rfl Trace H (Negative) RADHA/UL Urine RBC 0-2 (0-2) /hpf Urine WBC 0-5 (0-3) /hpf Ur Squamous Epith Cells Occasional (Few) /hpf Urine Bacteria None seen /hpf Urine Casts 0-2 Imaging Data Radiologist's impression: ITS Impressions Abdomen/Pelvis CT 05/02/24 09:37 IMPRESSION: 1. A couple abrupt transition points in close apposition in the deep pelvis with intervening fluid-filled but not frankly dilated small bowel suspicious for early closed loop obstruction. Dr. Nath discussed these findings with Dr. Greenwood at 10:09 AM. Discharge Plan Discharge Clinical Impression: SBO (small bowel obstruction) Patient Disposition: Home, Self-Care Condition: Stable Patient Language: Faroese Prescriptions: No Action amlodipine 5 mg tablet 5 mg PO DAILY glycopyrrolate 1 mg tablet 1 mg PO BID venlafaxine 75 mg capsule,extended release 24hr 75 mg PO DAILY gabapentin 300 mg capsule 300 mg PO QHS Eliquis 2.5 mg tablet 2.5 mg PO BID Qty: 20 0RF Follow-up/Referrals: Madeleine,Patrick Bernal [Other] Time of Disposition: 11:06
--- NOTE | 2024-05-02 11:42 | P.CONGS_ITS ---
Assessment and Plan Assessment and plan (1) SBO (small bowel obstruction): Code(s): K56.609 - Unspecified intestinal obstruction, unspecified as to partial versus complete obstruction Status: Acute Assessment and Plan: * Patient presents with lower abdominal pain and nausea. CT showed some fluid- filled small bowel loops in the pelvis with a couple abrupt transition points that could be consistent with an early closed-loop small bowel obstruction. She is not having any vomiting and her bowel doesn't appears significantly dilated. Will defer NG tube placement for now, but she may need an NG if she starts vomiting. She has lower abdominal tenderness but no diffuse peritoneal signs. We will continue bowel rest, IV fluids, and PRN analgesics for today. Will order a water soluble small bowel series tomorrow morning to further evaluate the possible small bowel obstruction. (2) Hypertension: Code(s): I10 - Essential (primary) hypertension Status: Chronic Plan I have discussed the patient's case and plan of care with Dr. Bustillos. History of Present Illness Consult details Consult date: 05/02/24 Reason for consult: other (Small bowel obstruction) Requesting physician: Kai Hurley MD Narrative: This is a 64-year-old woman with PMH of HTN, who we have been asked to see in surgical consultation for a small bowel obstruction. She reports a sudden onset of lower abdominal pain around 2:30 am this morning. She reports feeling in her normal state of health up until having pain. She describes her pain as intense and radiating to her lower back. She reports associated nausea, but no vomiting. She tried taking Tylenol and using a heating pad without any relief. Her pain persisted without any alleviating factors, therefore she came into the ED for evaluation. In the ED, her vital signs have been stable with her blood pressure mildly elevated. Labs showed a normal WBC count normal. CT scan of the abdomen and pelvis showed a couple abrupt transition points in close apposition in the deep pelvis with intervening fluid-filled but not frankly dilated small bowel suspicious for early closed loop obstruction. She is now seen in this setting. No NG tube in place in the ER. She denies any flatus today. Her last BM was two days ago. She denies any previous small bowel obstructions. Surgical history includes laparoscopy for endometriosis, total abdominal hysterectomy, and laparoscopic cholecystectomy. Also to note, there is Eliquis 2.5 mg listed on her home medication list. The patient denies having any history of blood clots, stents, or any other reason for anticoagulation. She denies taking Eliquis. In review of her chart, she was prescribed 10 days of Eliquis from an ER visit in 2020 when she was diagnosed with COVID pneumonia. Review of Systems 2 Review of Systems: All systems reviewed & are unremarkable except as noted in HPI and below PMFSH Past Medical History Medical History Hypertension Chronic headaches Surgical History Surgical History History of laparoscopy History of laparoscopic cholecystectomy History of total abdominal hysterectomy and bilateral salpingo-oophorectomy Social History Social History Smoking status: Never smoker Alcohol intake: current Alcohol use details: Occasional, will have a glass of wine Substance use: never Meds Home Medications and Allergies Home Medications ?Medication ?Instructions ?Recorded ?Confirmed ?Type apixaban 2.5 mg tablet (Eliquis) 2.5 mg PO BID #20 tabs 06/25/20 05/02/24 Rx amlodipine 5 mg tablet 5 mg PO DAILY 05/02/24 05/02/24 History gabapentin 300 mg capsule 300 mg PO QHS 05/02/24 05/02/24 History glycopyrrolate 1 mg tablet 1 mg PO BID 05/02/24 05/02/24 History venlafaxine 75 mg capsule,extended 75 mg PO DAILY 05/02/24 05/02/24 History release 24 hr Allergies Allergy/AdvReac Type Severity Reaction Status Date / Time erythromycin base Allergy Unknown Unknown Verified 05/02/24 08:28 Penicillins Allergy Unknown Unknown Verified 05/02/24 08:28 Sulfa (Sulfonamide Allergy Unknown Unknown Verified 05/02/24 08:28 Antibiotics) doxycycline AdvReac Rash Verified 05/02/24 08:28 tetracycline AdvReac Rash Verified 05/02/24 08:28 Vital Signs Vital Signs - 24 hr 05/02/24 07:07 05/02/24 08:29 05/02/24 09:51 Temperature 97.9 F Pulse Rate 94 101 H 93 Respiratory Rate 18 16 16 Blood Pressure 140/85 161/83 H 137/82 Pulse Oximetry 100 100 100 Oxygen Delivery Room Air 05/02/24 10:37 05/02/24 11:33 Temperature Pulse Rate 89 91 Respiratory Rate 13 22 H Blood Pressure 145/85 H 139/84 Pulse Oximetry 96 96 Oxygen Delivery Exam 2 Const: General: no acute distress and uncomfortable Nutritional Appearance: average body habitus Orientation/consciousness: patient oriented x3 HENMT: Head: normocephalic and atraumatic Ears: hearing grossly normal bilaterally Eyes: General: appearance normal, both eyes and all related structures P upils: Equal, round and reactive pupils present Neck: Neck: normal visual inspection and full ROM Resp: Effort & Inspection: no respiratory distress Auscultation: clear to auscultation bilaterally Cardio: Rate: regular rate Rhythm: regular rhythm Peripheral pulses: P eripheral pulses 2+ throughout GI: Inspection: scar (few small port site scars, pfannenstiel scar), no visible herniation and other (mildly distended) GI Palp: Yes Soft to palpation, Yes Tenderness to palpation present (GI) (across the lower abdomen), Yes Guarding due to palpation present (GI) (RLQ and LLQ), Yes No hepatosplenomegaly present and No Rebound tenderness present Auscultation: H ypoactive bowel sounds present Skin: General skin exam: normal color Neuro: General: moves all extremities and no focal motor deficits Speech: n ormal speech Motor exam (neuro): 5/5 motor strength present throughout Extrem: General: normal to inspection and no edema Psych: Mental Status: mental status grossly normal Attitude: cooperative Insight: Good insight present (Psych) Judgement: Good judgement present (Psych) Results Labs 05/02/24 08:40 05/02/24 08:40 Labs: Abnormal lab results 05/02/24 05/02/24 Range/Units 08:40 09:42 Neut % (Auto) 83.1 H (45.5-73.1) % Lymph % (Auto) 12.4 L (18.3-44.2) % Anion Gap 14 H (4-12) mmol/L Creatinine 0.59 L (0.7-1.0) mg/dL Glucose 129 H (65-110) mg/dL Calcium 10.3 H (8.4-10.2) mg/dL Alkaline Phosphatase 159 H (38-126) U/L Total Protein 9.0 H (6.3-8.2) g/dL Leukocyte Esterase Rfl Trace H (Negative) RADHA/UL Diabetes panel 05/02/24 Range/Units 08:40 Sodium 140 (137-145) mmol/L Potassium 3.9 (3.4-5.0) mmol/L Chloride 100 (98-107) mmol/L Carbon Dioxide 26 (22-30) mmol/L BUN 8 (7-17) mg/dL Creatinine 0.59 L (0.7-1.0) mg/dL Glucose 129 H (65-110) mg/dL Calcium 10.3 H (8.4-10.2) mg/dL AST 26 (14-36) U/L ALT 21 (6-35) U/L Alkaline Phosphatase 159 H (38-126) U/L Total Protein 9.0 H (6.3-8.2) g/dL Albumin 4.9 (3.5-5.1) g/dL Calcium panel 05/02/24 Range/Units 08:40 Calcium 10.3 H (8.4-10.2) mg/dL Albumin 4.9 (3.5-5.1) g/dL Pituitary panel 05/02/24 Range/Units 08:40 Sodium 140 (137-145) mmol/L Potassium 3.9 (3.4-5.0) mmol/L Chloride 100 (98-107) mmol/L Carbon Dioxide 26 (22-30) mmol/L BUN 8 (7-17) mg/dL Creatinine 0.59 L (0.7-1.0) mg/dL Glucose 129 H (65-110) mg/dL Calcium 10.3 H (8.4-10.2) mg/dL Adrenal panel 05/02/24 Range/Units 08:40 Sodium 140 (137-145) mmol/L Potassium 3.9 (3.4-5.0) mmol/L Chloride 100 (98-107) mmol/L Carbon Dioxide 26 (22-30) mmol/L BUN 8 (7-17) mg/dL Creatinine 0.59 L (0.7-1.0) mg/dL Glucose 129 H (65-110) mg/dL Calcium 10.3 H (8.4-10.2) mg/dL Total Bilirubin 0.5 (0.2-1.3) mg/dL AST 26 (14-36) U/L ALT 21 (6-35) U/L Alkaline Phosphatase 159 H (38-126) U/L Total Protein 9.0 H (6.3-8.2) g/dL Albumin 4.9 (3.5-5.1) g/dL All other labs normal. Imaging Additional studies: ITS Impressions Abdomen/Pelvis CT 05/02/24 09:37 IMPRESSION: 1. A couple abrupt transition points in close apposition in the deep pelvis with intervening fluid-filled but not frankly dilated small bowel suspicious for early closed loop obstruction. Dr. Nath discussed these findings with Dr. Greenwood at 10:09 AM.
[2024-05-02 12:37] LABS: Lactic Acid Reflex 0.9 mmol/L (0.7-2.0)
--- NOTE | 2024-05-02 12:45 | P.HP_ITS ---
H&P: HPI History of Present Illness Date/Time: 05/02/24 13:00 Chief Complaint: Abdominal pain. Narrative: This is a 64-year-old female with hypertension ulcer, and history of laparoscopy, cholecystectomy, and hysterectomy who presented to the emergency department with complaints of abdominal pain. The patient provides the following history. She was wakened from sleep at about 02:30 with intense cramping pain in the lower abdomen radiating to the lower back. At its worst she rates the pain a 10/10. Heating pad and acetaminophen do not seem to be helping at all. Associated symptoms include nausea. She has never had similar symptoms and has no history of diverticulitis, bowel obstruction, or kidney stones. She also denies fever, chest pain, vomiting, epigastric pain bloating, belching, diarrhea, and constipation. In the ED: Vital signs were stable arrival. CT of the abdomen and pelvis showed findings suspicious for possible early closed-loop bowel obstruction. She received a normal saline, morphine, and ondansetron and she is being admitted in this setting for close monitoring and surgery consultation. Review of Systems Review of Systems: 12 systems were reviewed and are negativ e except for as per HPI. [facility] Past Medical History Medical History Depression Hypertension Chronic headaches Surgical History Surgical History History of laparoscopy History of laparoscopic cholecystectomy History of total abdominal hysterectomy and bilateral salpingo-oophorectomy Social History Social History (Updated 05/02/24 @ 20:48 by Christina Lopez PA-C) Social History: Surrogate medical decision maker: Farooq Rainey, daughter ([phone]). Code status: Full code. Smoking status: Never smoker Alcohol intake: current Drinks per week: 1 Alcohol use details: Occasional, will have a glass of wine Substance use: never Do You Feel Safe in your Home?: Yes Lack of Transportation: No Lack of Food: Never True Current Housing: I Have Housing Concerned About Future Housing: No Difficulty Paying Gas/Electric Bills: No Difficulty Paying for Meds: No Currently Unemployed: No Education: Bachelor's Degree Difficulty w/ Childcare or Family Care: No Spiritual care concerns: No Meds Home Medications and Allergies Home Medications ?Medication ?Instructions ?Recorded ?Confirmed ?Type apixaban 2.5 mg tablet (Eliquis) 2.5 mg PO BID #20 tabs 06/25/05/02/24 Rx amlodipine 5 mg tablet 5 mg PO DAILY 05/02/24 05/02/24 History gabapentin 300 mg capsule 300 mg PO QHS 05/02/24 05/02/24 History glycopyrrolate 1 mg tablet 1 mg PO BID 05/02/24 05/02/24 History venlafaxine 75 mg capsule,extended 75 mg PO DAILY 05/02/24 05/02/24 History release 24 hr Allergies Allergy/AdvReac Type Severity Reaction Status Date / Time Sulfa (Sulfonamide Allergy Intermediate Rash Verified 05/02/24 14:49 Antibiotics) erythromycin base Allergy Unknown Unknown Verified 05/02/24 14:49 Penicillins Allergy Unknown Unknown Verified 05/02/24 14:49 doxycycline AdvReac Rash Verified 05/02/24 14:49 tetracycline AdvReac Rash Verified 05/02/24 14:49 Vital Signs Vital Signs - 24 hr 05/02/24 07:07 05/02/24 08:29 05/02/24 09:51 Temperature 97.9 F Pulse Rate 94 101 H 93 Respiratory Rate 18 16 16 Blood Pressure 140/85 161/83 H 137/82 Pulse Oximetry 100 100 100 Oxygen Delivery Room Air 05/02/24 10:37 05/02/24 11:33 Temperature Pulse Rate 89 91 Respiratory Rate 13 22 H Blood Pressure 145/85 H 139/84 Pulse Oximetry 96 96 Oxygen Delivery Exam Narrative: General: Mildly ill-appearing female in moderate distress related to pain. Weight: 86.5 kg. BMI: 34.9. HEENT: PERRL, EOMI. Sclera anicteric. Tacky mucous membranes. Neck: Supple. Respiratory: Lungs are clear to auscultation bilaterally. Cardiovascular: Regular rate and rhythm with S1-S2. No murmur, rub, or gallop. Gastrointestinal: Abdomen is slightly distended with hypoactive bowel sounds. She is tender to palpation throughout the abdomen. Mild voluntary guarding but no rebound tenderness. Skin: Warm and dry. No rash or lesions on limited exam. Extremities: No cyanosis, clubbing, or edema. Radial and pedal pulses intact. Neurological: Alert. Cranial nerves 2-12 are grossly intact. No gross focal deficits to casual conversation. Psychiatric: Pleasant and cooperative with normal mood and affect. Judgment and insight intact. H&P: Results Labs Labs: Short CBC 05/02/24 Range/Units 08:40 WBC 7.6 (4.5-10.0) K/mm3 Hgb 13.3 (12.0-15.0) g/dL Hct 40.0 (37.0-47.0) % Plt Count 292 (150-375) k/mm3 BMP 05/02/24 08:40 Sodium 140 Potassium 3.9 Chloride 100 Carbon Dioxide 26 BUN 8 Creatinine 0.59 L Glucose 129 H Calcium 10.3 H Liver Function 05/02/24 Range/Units 08:40 Total Bilirubin 0.5 (0.2-1.3) mg/dL AST 26 (14-36) U/L ALT 21 (6-35) U/L Alkaline Phosphatase 159 H (38-126) U/L Albumin 4.9 (3.5-5.1) g/dL Urine 05/02/24 Range/Units 09:42 Urine Color Yellow (Yellow) Urine Appearance Clear (Clear) Urine pH 7.5 (5.0-9.0) Ur Specific [place] 1.021 (1.001-1.035) Urine Protein Negative (Negative) mg/dL Urine Glucose (UA) Negative (Negative) mg/dL Impressions Abdomen/Pelvis CT 05/02/24 09:37 IMPRESSION: 1. A couple abrupt transition points in close apposition in the deep pelvis with intervening fluid-filled but not frankly dilated small bowel suspicious for early closed loop obstruction. Assessment and Plan Assessment and plan (1) Small bowel obstruction: Code(s): K56.609 - Unspecified intestinal obstruction, unspecified as to partial versus complete obstruction Status: Acute (2) Hypertension: Code(s): I10 - Essential (primary) hypertension Status: Chronic Plan The patient presented to the emergency department with abdominal pain as detailed in HPI. Labs, imaging, EKG, and all reports were personally reviewed. CT scan showed findings consistent with possible early closed-loop small-bowel obstruction which she has been evaluated by surgery. At this time there is no indication for NG tube insertion as the patient is not vomiting and there does not appear to be significant dilation of the bowel. They recommend bowel rest, IV fluids and analgesics as needed. A water-soluble small-bowel series ordered for tomorrow a.m. Blood pressures were reviewed and they have been stable. Her home medications will be reviewed and as appropriate. Findings and treatment plan were discussed with the patient. Questions were solicited and answered to satisfaction. The patient's medical management will be taken over by the hospitalist team in a.m. Quality VTE Prophylaxis VTE prophylaxis: mechanical ordered If No VTE Prophylaxis Answer both mechanical and pharmacologic: Reason no pharmacologic proph: medical contraindication (may need surgery) Hospitalist MIPS Advance Care Plan I have confirmed that the patient's Advanced Care Plan is present, code status is documented, or surrogate decision maker is listed in patient medical record.: Yes Medication Reconciliation I have utilized all available resources to obtain, update and review the patients current medications (includes all prescriptions, OTC, herbals, cannabis, and nutritional supplements).: Yes
--- NOTE | 2024-05-02 14:29 | ADMGEN ---
This patient, Lashay Rainey, was admitted to [facility] Surg Room 303-01. Patient/family oriented to hospital policies and general routines including ID bracelet, bed and alarms, visiting hours, pain management, procedures, bathroom and other care routines, personal items, smoking policy, room service/diet, and visiting hours. Information on how to activate the Rapid Response Team has been discussed. Patient/Family are encouraged to report perceived risks to care and to ask questions if they do not understand what they are told or what they should do.
[2024-05-02] MEDS: HYDROmorphone HCL INJ (*CRX) 1 MG/ML SYR 0.5 MG IV PUSH (14:35)
--- NOTE | 2024-05-02 14:42 | ADMGEN ---
This patient, Lashay Rainey, was admitted to [facility] Surg Room 303-01. Patient/family oriented to hospital policies and general routines including ID bracelet, bed and alarms, visiting hours, pain management, procedures, bathroom and other care routines, personal items, smoking policy, room service/diet, and visiting hours. Information on how to activate the Rapid Response Team has been discussed. Patient/Family are encouraged to report perceived risks to care and to ask questions if they do not understand what they are told or what they should do.
[2024-05-02] MEDS: SODIUM CHLORIDE 0.9% IV 1,000 ML 125 ML IV CONT (18:09)
[2024-05-03] MEDS: SODIUM CHLORIDE 0.9% IV 1,000 ML 125 ML IV CONT ×3 (01:56→20:06)
[2024-05-03] MEDS: ONDANSETRON INJ 4 MG/2 ML VIAL IV PUSH ×5 (04:23→20:16)
[2024-05-03] MEDS: HYDROmorphone HCL INJ (*CRX) 1 MG/ML SYR IV PUSH ×6 (04:23→23:21)
[2024-05-03 05:30] VITALS: BP 157/86; PULSE 97; RESP 20; TEMP 36.3; O2SAT 100
[2024-05-03 07:16] LABS: Basophils Percent Auto 0.1 % (0.2-1.2); Eosinophils Percent Auto 0.1 % (0-4.4); Hematocrit 38.4 % (37.0-47.0); Hemoglobin 12.3 g/dL (12.0-15.0); Immature Granulocyte Absolute 0.03 K/mm3 (0.00-0.031); Immature Granulocyte Percent A 0.4 % (0-0.5); Lymphocytes Absolute Auto 1.17 K/mm3 (0.9-3.2); Lymphocytes Percent Auto 14.1 % (18.3-44.2); Mean Corpuscular Hemoglobin 30.8 pg (26-34); Mean Platelet Volume 9.8 fl (7.4-10.4); Monocytes Absolute Auto 0.5 K/mm3 (0.1-0.6); Monocytes Percent Auto 5.4 % (2.6-8.5); Neutrophils Absolute Auto 6.6 K/mm3 (1.3-6.7); Neutrophils Percent Auto 79.9 % (45.5-73.1); Platelet Count Result 274 k/mm3 (150-375); Red Cell Distribution Width 13.5 % (11.5-14.5); White Blood Count 8.3 K/mm3 (4.5-10.0)
[2024-05-03 07:25] LABS: Anion Gap 8 mmol/L (4-12); Blood Urea Nitrogen 7 mg/dL (7-17); Calcium 9.4 mg/dL (8.4-10.2); Carbon Dioxide 30 mmol/L (22-30); Chloride 104 mmol/L (98-107); Estimated CRCL calculation 79 ml/min; Estimated Glomerular Filt Rate > 60; Glucose 111 mg/dL (65-110); Magnesium 2.1 mg/dL (1.6-2.3); Potassium 4.1 mmol/L (3.4-5.0); Sodium 142 mmol/L (137-145)
[2024-05-03] MEDS: HYDROmorphone HCL INJ (*CRX) 1 MG/ML SYR 0.5 MG IV PUSH (08:22)
--- NOTE | 2024-05-03 09:53 | PM.IMPN ---
Progress Note: A&P Assessment and Plan (1) Small bowel obstruction: Code(s): K56.609 - Unspecified intestinal obstruction, unspecified as to partial versus complete obstruction Status: Acute Assessment and Plan: Abdomen/pelvis CT: A couple abrupt transition points in close apposition in the deep pelvis with intervening fluid-filled but not frankly dilated small bowel suspicious for early closed loop obstruction. GI follow through: pending - NG deferred given that patient is not having any vomiting and her bowel is not overtly dilated, place NG if vomiting develops - Continue bowel rest - IV fluids 125 ml/hr - Monitor I&Os, vital signs, neuro status and patient is a fall risk - Monitor serum electrolytes and CBC - General surgery consulted to further evaluate small bowel obstruction (2) Hypertension: Code(s): I10 - Essential (primary) hypertension Status: Chronic Assessment and Plan: Chronic, currently holding medications for bowel rest - hold amlodipine 5 mg daily - blood pressures remain stable, continue to monitor Time Spent With Patient Time with patient: 25 - 35 minutes Subjective Date/time seen: 05/03/24 09:53 Interval history: 64-year-old female with hypertension ulcer, and history of laparoscopy, cholecystectomy, and hysterectomy who presented to the emergency department with complaints of abdominal pain. Patient is pleasant lying in bed. She continues to endorse abdominal discomfort and nausea but denies vomiting. She has no other complaints denying chest pain, shortness of breath, palpitations. Review of Systems Review of Systems: All systems reviewed & are unremarkable except as noted in HPI and below Exam Narrative: AF HR 97 RR 20 SpO2 100 BP 157/86 General: female in no acute respiratory distress who is nontoxic appearing, lying semi recumbent in bed. HEENT: Normocephalic. Atraumatic. Extraocular movement intact. Sclera clear and anicteric. No facial asymmetry. Chest: Lungs are clear to auscultation bilaterally. No wheezes or crackles. CV: Heart was regular rate and rhythm. S1-S2. No murmurs, gallops, or rubs. Abd: Abdomen was soft. Nontender. Nondistended. Positive bowel sounds. No organomegaly or masses. Ext: No clubbing, cyanosis, or edema. 2+ DP pulses bilaterally. Neuro: Patient is alert. Speech is clear. Objective Data Vital Signs Vital Signs: Vital Signs - 24 hr 05/02/24 10:37 02/04/25 10:45 05/02/24 11:33 Temperature Pulse Rate 89 91 91 Respiratory Rate 13 14 22 H Blood Pressure 145/85 H 134/79 139/84 Pulse Oximetry 96 93 96 Oxygen Delivery 05/02/24 12:15 05/02/24 13:00 05/02/24 14:14 Temperature 97.9 F Pulse Rate 86 80 90 Respiratory Rate 13 14 16 Blood Pressure 114/73 119/78 125/87 Pulse Oximetry 95 98 96 Oxygen Delivery 05/02/24 16:00 05/02/24 20:00 05/02/24 20:00 Temperature 97.7 F 97.0 F L Pulse Rate 90 84 Respiratory Rate 20 14 Blood Pressure 115/62 141/86 H Pulse Oximetry 100 100 Oxygen Delivery Room Air 05/03/24 05:30 Temperature 97.4 F L Pulse Rate 97 Respiratory Rate 20 Blood Pressure 157/86 H Pulse Oximetry 100 Oxygen Delivery Intake/Output Intake/Output: Intake & Output 04/30/24 05/01/24 05/02/24 05/03/24 23:59 23:59 23:59 23:59 Intake Total 142.5 1775.0 Balance 142.5 1775.0 Meds/Results Medications: Active Medications Generic Name Dose Route Start Last Admin Trade Name Freq PRN Reason Stop Dose Admin Hydromorphone HCl 0.5 mg 05/02/24 18:56 05/03/24 08:22 Hydromorphone Hcl Inj (*Crx) 1 Mg/Ml Syr IV PUSH 0.5 mg Q3H PRN Administration Pain Rated 4-6 Hydromorphone HCl 1 mg 05/02/24 18:55 05/03/24 04:23 Hydromorphone Hcl Inj (*Crx) 1 Mg/Ml Syr IV PUSH 1 mg Q3H PRN Administration Pain Rated 7-10 Sodium Chloride 1,000 mls @ 125 mls/hr 05/02/24 11:00 05/03/24 08:21 Normal Saline Iv IV CONT 125 mls/hr .Q8H TESSA Administration Ondansetron HCl 4 mg 05/02/24 10:59 05/03/24 08:21 Ondansetron Inj 4 Mg/2 Ml Vial IV PUSH 4 mg Q4H PRN Administration Nausea Radiology Results: ITS Impressions Abdomen/Pelvis CT 05/02/24 09:37 IMPRESSION: 1. A couple abrupt transition points in close apposition in the deep pelvis with intervening fluid-filled but not frankly dilated small bowel suspicious for early closed loop obstruction. Dr. Nath discussed these findings with Dr. Greenwood at 10:09 AM. Labs Labs: Laboratory Results - last 24 hr 05/02/24 05/02/24 05/03/24 09:42 12:22 06:53 WBC 8.3 RBC 4.00 L Hgb 12.3 Hct 38.4 MCV 96.0 MCH 30.8 MCHC 32.0 RDW 13.5 Plt Count 274 MPV 9.8 Immature Gran % (Auto) 0.4 Neut % (Auto) 79.9 H Lymph % (Auto) 14.1 L [place] % (Auto) 5.4 Eos % (Auto) 0.1 Baso % (Auto) 0.1 L Lymph # (Auto) 1.17 [place] # (Auto) 0.5 Eos # (Auto) 0.0 Baso # (Auto) 0.0 Abs Immat Gran (auto) 0.03 Absolute Neuts (auto) 6.6 Absolute Nucleated RBC 0.000 Nucleated RBC % 0.0 Sodium 142 Potassium 4.1 Chloride 104 Carbon Dioxide 30 Anion Gap 8 BUN 7 Creatinine 0.64 L Estim Creat Clear Calc 79 Estimated GFR > 60 Glucose 111 H Lactic Acid 0.9 Calcium 9.4 Magnesium 2.1 Urine Color Yellow Urine Appearance Clear Urine pH 7.5 Ur Specific [place] 1.021 Urine Protein Negative Urine Glucose (UA) Negative Urine Ketones Negative Ur Blood (Man) Negative Urine Nitrate Negative Urine Bilirubin Negative Urine Urobilinogen 1.0 Leukocyte Esterase Rfl Trace H Urine RBC 0-2 Urine WBC 0-5 Ur Squamous Epith Cells Occasional Urine Bacteria None seen Urine Casts 0-2 Quality VTE Prophylaxis VTE prophylaxis: mechanical ordered
[2024-05-03 16:09] VITALS: BP 148/74; PULSE 96; RESP 22; TEMP 36.2; O2SAT 100
--- NOTE | 2024-05-03 17:22 | PC.NURSE ---
Dr Salinas notified of sbft results
[2024-05-03] MEDS: PANTOPRAZOLE SODIUM IV 40 MG VIAL IV PUSH (17:45)
[2024-05-03 20:07] VITALS: BP 141/80; PULSE 100; RESP 16; TEMP 36.8; O2SAT 100
[2024-05-04] VITALS (12 sets, daily range): BP systolic 121–155; BP diastolic 71–91; PULSE 95–106; RESP 14–20; TEMP 36.1–36.8; O2SAT 98–100
[2024-05-04] MEDS: HYDROmorphone HCL INJ (*CRX) 1 MG/ML SYR IV PUSH ×2 (02:32→07:53)
[2024-05-04] MEDS: SODIUM CHLORIDE 0.9% IV 1,000 ML 125 ML IV CONT ×2 (04:01→17:32)
--- NOTE | 2024-05-04 07:42 | P.PNGS_ITS ---
Progress Note: A&P Assessment and Plan (1) Complete small bowel obstruction: Code(s): K56.601 - Complete intestinal obstruction, unspecified as to cause Status: Acute Assessment and Plan: * I reviewed the SBFT yesterday and patient had no contrast progressing to colon after 4 hours. She continues to show signs of complete obstruction. I have recommended proceeding with diagnostic laparoscopy, possible open, possible bowel resection. I discussed the procedure, risks, benefits, and alternatives. Questions answered. Subjective Subjective Date/Time Seen: 05/04/24 07:42 Interval history: SBFT yesterday shows persistent complete obstruction. NG placed yesterday and large amount of output. Patient in a lot of pain this AM. Still no BM, no Flatus. Exam GI: Inspection: distended GI Palp: Yes Soft to palpation, Yes Tenderness to palpation present (GI), No Guarding due to palpation present (GI) and No Rebound tenderness present Auscultation: Hypoactive bowel sounds present Objective Data Vital Signs Vital Signs: Vital Signs - 24 hr 05/03/24 08:00 05/03/24 16:09 05/03/24 20:00 Temperature 97.2 F L Pulse Rate 96 Respiratory Rate 22 H Blood Pressure 148/74 H Pulse Oximetry 100 Oxygen Delivery Room Air Room Air 05/03/24 20:07 05/04/24 04:27 Temperature 98.2 F 97.3 F L Pulse Rate 100 104 H Respiratory Rate 16 20 Blood Pressure 141/80 H 139/88 Pulse Oximetry 100 100 Oxygen Delivery Intake/Output Intake/Output: Intake & Output 05/01/24 05/02/24 05/03/24 05/04/24 23:59 23:59 23:59 23:59 Intake Total 142.5 2775.0 989.6 Output Total 1400 1 Balance 142.5 1375.0 988.6 Meds/Results Medications: Active Medications Generic Name Dose Route Start Last Admin Trade Name Freq PRN Reason Stop Dose Admin Hydromorphone HCl 0.5 mg 05/02/24 18:56 05/03/24 08:22 Hydromorphone Hcl Inj (*Crx) 1 Mg/Ml Syr IV PUSH 0.5 mg Q3H PRN Administration Pain Rated 4-6 Hydromorphone HCl 1 mg 05/02/24 18:55 02/06/25 02:32 Hydromorphone Hcl Inj (*Crx) 1 Mg/Ml Syr IV PUSH 1 mg Q3H PRN Administration Pain Rated 7-10 Sodium Chloride 1,000 mls @ 125 mls/hr 05/02/24 11:00 05/04/24 04:01 Normal Saline Iv IV CONT 125 mls/hr .Q8H TESSA Administration Ondansetron HCl 4 mg 05/02/24 10:59 05/03/24 20:16 Ondansetron Inj 4 Mg/2 Ml Vial IV PUSH 4 mg Q4H PRN Administration Nausea Pantoprazole Sodium 40 mg 05/03/24 17:01 05/03/24 17:45 Pantoprazole Sodium Iv 40 Mg Vial IV PUSH 40 mg QAM TESSA Administration Radiology Results: ITS Impressions Abdomen/Pelvis CT 05/02/24 09:37 IMPRESSION: 1. A couple abrupt transition points in close apposition in the deep pelvis with intervening fluid-filled but not frankly dilated small bowel suspicious for early closed loop obstruction. Dr. Nath discussed these findings with Dr. Greenwood at 10:09 AM. Small Bowel X-Ray 05/03/24 16:25 IMPRESSION: 1. Small bowel obstruction. Abdomen X-Ray 05/03/24 17:38 IMPRESSION: Nasogastric tube in good position and ready for immediate use.
--- NOTE | 2024-05-04 07:53 | WPDHPUPDATE1 ---
History and Physical Update Update Date/Time: 05/04/24 07:53 History and Physical has been reviewed, including an updated exam of the patient. There are NO changes in the patient's condition. Risks, benefits, and alternatives have been discussed and questions answered. Patient agrees to proceed with procedure.
[2024-05-04] MEDS: PANTOPRAZOLE SODIUM IV 40 MG VIAL IV PUSH (08:02)
[2024-05-04 08:16] LABS: Hematocrit 41.1 % (37.0-47.0); Hemoglobin 13.7 g/dL (12.0-15.0); Mean Corpuscular HGB Conc 33.3 g/dl (32-36); Mean Corpuscular Hemoglobin 31.1 pg (26-34); Mean Corpuscular Volume 93.2 fl (80-100); Mean Platelet Volume 9.9 fl (7.4-10.4); Platelet Count Result 293 k/mm3 (150-375); Red Blood Count 4.41 M/mm3 (4.2-5.4); Red Cell Distribution Width 13.8 % (11.5-14.5); White Blood Count 7.8 K/mm3 (4.5-10.0)
[2024-05-04 08:27] LABS: Lactic Acid Reflex 1.6 mmol/L (0.7-2.0)
[2024-05-04 08:29] LABS: Anion Gap 12 mmol/L (4-12); Blood Urea Nitrogen 13 mg/dL (7-17); Calcium 9.5 mg/dL (8.4-10.2); Carbon Dioxide 22 mmol/L (22-30); Chloride 107 mmol/L (98-107); Estimated CRCL calculation 78 ml/min; Estimated Glomerular Filt Rate > 60; Glucose 121 mg/dL (65-110); Potassium 3.7 mmol/L (3.4-5.0); Sodium 141 mmol/L (137-145)
--- NOTE | 2024-05-04 09:10 | PM.IMPN ---
Progress Note: A&P Assessment and Plan (1) Small bowel obstruction: Code(s): K56.609 - Unspecified intestinal obstruction, unspecified as to partial versus complete obstruction Status: Deleted Assessment and Plan: Abdomen/pelvis CT: A couple abrupt transition points in close apposition in the deep pelvis with intervening fluid-filled but not frankly dilated small bowel suspicious for early closed loop obstruction. SBFT: no contrast progression after 4 hours - NG placed on 05/03 - Continue bowel rest - IV fluids 125 ml/hr - Monitor I&Os, vital signs, neuro status and patient is a fall risk - Monitor serum electrolytes and CBC - General surgery consulted to further evaluate small bowel obstruction plan for diagnostic laparoscopy enterolysis and release of small bowel obstruction on 05/[address] Bustillos (2) Hypertension: Code(s): I10 - Essential (primary) hypertension Status: Chronic Assessment and Plan: Chronic, currently holding medications for bowel rest - hold amlodipine 5 mg daily - blood pressures remain stable, continue to monitor Time Spent With Patient Time with patient: 25 - 35 minutes Subjective Date/time seen: 05/04/24 09:10 Interval history: 64-year-old female with hypertension ulcer, and history of laparoscopy, cholecystectomy, and hysterectomy who presented to the emergency department with complaints of abdominal pain. Patient is pleasant lying comfortably in bed. She is endorsing abdominal pain and nausea but denies any vomiting. NG-tube remains in place. Patient is set to go to the OR today for a laparoscopic enterolysis with release of the SBO. She has no other complaints denies chest pain, shortness a breath, palpitations. Review of Systems Review of Systems: All systems reviewed & are unremarkable except as noted in HPI and below Exam Narrative: AF HR 98 RR 16 SpO2 98 BP 138/81 General: female in no acute respiratory distress who is nontoxic appearing, lying semi recumbent in bed. HEENT: Normocephalic. Atraumatic. Extraocular movement intact. Sclera clear and anicteric. No facial asymmetry. Chest: Lungs are clear to auscultation bilaterally. No wheezes or crackles. CV: Heart was regular rate and rhythm. S1-S2. No murmurs, gallops, or rubs. Abd: Abdomen was soft. Tender. Nondistended. Hypoactive bowel sounds. No organomegaly or masses. Ext: No clubbing, cyanosis, or edema. 2+ DP pulses bilaterally. Neuro: Patient is alert. Speech is clear. Objective Data Vital Signs Vital Signs: Vital Signs - 24 hr 05/03/24 16:09 05/03/24 20:00 05/03/24 20:07 Temperature 97.2 F L 98.2 F Pulse Rate 96 100 Respiratory Rate 22 H 16 Blood Pressure 148/74 H 141/80 H Pulse Oximetry 100 100 Oxygen Delivery Room Air 05/04/24 04:27 05/04/24 08:05 Temperature 97.3 F L Pulse Rate 104 H Respiratory Rate 20 Blood Pressure 139/88 Pulse Oximetry 100 Oxygen Delivery Room Air Intake/Output Intake/Output: Intake & Output 05/01/24 05/02/24 05/03/24 05/04/24 23:59 23:59 23:59 23:59 Intake Total 142.5 2775.0 989.6 Output Total 1400 1 Balance 142.5 1375.0 988.6 Meds/Results Medications: Active Medications Generic Name Dose Route Start Last Admin Trade Name Freq PRN Reason Stop Dose Admin Hydromorphone HCl 0.5 mg 05/02/24 18:56 05/03/24 08:22 Hydromorphone Hcl Inj (*Crx) 1 Mg/Ml Syr IV PUSH 0.5 mg Q3H PRN Administration Pain Rated 4-6 Hydromorphone HCl 1 mg 05/02/24 18:55 05/04/24 07:53 Hydromorphone Hcl Inj (*Crx) 1 Mg/Ml Syr IV PUSH 1 mg Q3H PRN Administration Pain Rated 7-10 Sodium Chloride 1,000 mls @ 125 mls/hr 05/02/24 11:00 05/04/24 04:01 Normal Saline Iv IV CONT 125 mls/hr .Q8H TESSA Administration Cefazolin Sodium 2 gm in 50 mls @ 100 mls/hr 05/04/24 11:00 Ancef 2 Gm/D5w 50 Ml IVPB 05/04/24 11:29 ONCE ONE Metronidazole 500 mg in 100 mls @ 100 mls/hr 05/04/24 11:00 Flagyl 500 Mg/Iso Soln 100 Ml IVPB 05/04/24 11:59 ONCE ONE Ondansetron HCl 4 mg 05/02/24 10:59 05/03/24 20:16 Ondansetron Inj 4 Mg/2 Ml Vial IV PUSH 4 mg Q4H PRN Administration Nausea Pantoprazole Sodium 40 mg 05/03/24 17:01 05/04/24 08:02 Pantoprazole Sodium Iv 40 Mg Vial IV PUSH 40 mg QAM TESSA Administration Radiology Results: ITS Impressions Abdomen/Pelvis CT 05/02/24 09:37 IMPRESSION: 1. A couple abrupt transition points in close apposition in the deep pelvis with intervening fluid-filled but not frankly dilated small bowel suspicious for early closed loop obstruction. Dr. Nath discussed these findings with Dr. Greenwood at 10:09 AM. Small Bowel X-Ray 05/03/24 16:25 IMPRESSION: 1. Small bowel obstruction. Abdomen X-Ray 05/03/24 17:38 IMPRESSION: Nasogastric tube in good position and ready for immediate use. Labs Labs: Laboratory Results - last 24 hr 05/04/24 05/04/24 05/04/24 07:59 08:00 08:06 WBC 7.8 RBC 4.41 Hgb 13.7 Hct 41.1 MCV 93.2 MCH 31.1 MCHC 33.3 RDW 13.8 Plt Count 293 MPV 9.9 Sodium 141 Potassium 3.7 Chloride 107 Carbon Dioxide 22 Anion Gap 12 BUN 13 D Creatinine 0.66 L Estim Creat Clear Calc 78 Estimated GFR > 60 Glucose 121 H Lactic Acid 1.6 Calcium 9.5 Blood Type O Positive Quality VTE Prophylaxis VTE prophylaxis: mechanical ordered
[2024-05-04] MEDS: KETOROLAC 30 MG/ML VIAL (*BKC) IV PUSH (09:44)
[2024-05-04] MEDS: LACTATED RINGERS 1,000 ML 30 ML IV CONT ×2 (11:00→14:05)
[2024-05-04] MEDS: HYDROmorphone HCL INJ (*CRX) 1 MG/ML SYR 0.5 MG IV PUSH ×3 (11:35→20:52)
--- NOTE | 2024-05-04 11:49 | P.PNAN_ITS ---
Anes - Initial Pre Proc Eval Procedure: Operation Date: 05/04/24 12:30 Proposed Procedures p Diagnostic Laparoscopy - Darrick Bustillos DO s Possible Open, Possible Bowel Resection - Darrick Bustillos DO Date/Time: 05/04/24 11:49 Surgeon: Anai Hammond PA-C Pre Op Diagnosis: SBO Patient Data Age: 64 Gender: F Height: 1.57 m Weight: 90 kg Last Vital Signs Temp 97.9 F 05/04/24 11:10 Pulse 98 05/04/24 11:10 Resp 16 05/04/24 11:10 BP 138/81 05/04/24 11:10 Pulse Ox 98 05/04/24 11:10 O2 Del Method Room Air 05/04/24 11:10 Allergies Allergy/AdvReac Type Severity Reaction Status Date / Time Sulfa (Sulfonamide Allergy Intermediate Rash Verified 05/02/24 14:49 Antibiotics) erythromycin base Allergy Unknown Unknown Verified 05/02/24 14:49 Penicillins Allergy Unknown Unknown Verified 05/02/24 14:49 doxycycline AdvReac Rash Verified 05/02/24 14:49 tetracycline AdvReac Rash Verified 05/02/24 14:49 Home Medications ?Medication ?Instructions ?Recorded ?Confirmed ?Type amlodipine 5 mg tablet 5 mg PO DAILY 05/02/24 05/02/24 History gabapentin 300 mg capsule 300 mg PO QHS 05/02/24 05/02/24 History glycopyrrolate 1 mg tablet 1 mg PO BID 05/02/24 05/02/24 History venlafaxine 75 mg capsule,extended 75 mg PO DAILY 05/02/24 05/02/24 History release 24 hr Laboratory Tests 05/04/24 05/04/24 05/04/24 07:59 08:00 08:06 WBC 7.8 K/mm3 (4.5-10.0) RBC 4.41 M/mm3 (4.2-5.4) Hgb 13.7 g/dL (12.0-15.0) Hct 41.1 % (37.0-47.0) MCV 93.2 fl (80-100) MCH 31.1 pg (26-34) MCHC 33.3 g/dl (32-36) RDW 13.8 % (11.5-14.5) Plt Count 293 k/mm3 (150-375) MPV 9.9 fl (7.4-10.4) Sodium 141 mmol/L (137-145) Potassium 3.7 mmol/L (3.4-5.0) Chloride 107 mmol/L (98-107) Carbon Dioxide 22 mmol/L (22-30) Anion Gap 12 mmol/L (4-12) BUN 13 D mg/dL (7-17) Creatinine 0.66 L mg/dL (0.7-1.0) Estim Creat Clear Calc 78 ml/min Estimated GFR > 60 (59 - ) Glucose 121 H mg/dL (65-110) Lactic Acid 1.6 mmol/L (0.7-2.0) Calcium 9.5 mg/dL (8.4-10.2) Blood Type O Positive Antibody Screen Negative Patient hx anesthesia problems: none Family hx anesthesia problems: none Results Review: All pre-operative results and documents have been reviewed as part of the pre- operative evaluation. [facility] Past Medical History Medical History Depression Hypertension Chronic headaches Surgical History Surgical History History of laparoscopy History of laparoscopic cholecystectomy History of total abdominal hysterectomy and bilateral salpingo-oophorectomy Social History Social History (Updated 05/02/24 @ 20:48 by Christina Lopez PA-C) Social History: Surrogate medical decision maker: Farooq Rainey, daughter ([phone]). Code status: Full code. Smoking status: Never smoker Alcohol intake: current Drinks per week: 1 Alcohol use details: Occasional, will have a glass of wine Substance use: never Do You Feel Safe in your Home?: Yes Lack of Transportation: No Lack of Food: Never True Current Housing: I Have Housing Concerned About Future Housing: No Difficulty Paying Gas/Electric Bills: No Difficulty Paying for Meds: No Currently Unemployed: No Education: Bachelor's Degree Difficulty w/ Childcare or Family Care: No Spiritual care concerns: No Anes - Eval Final PreProcedure Day of Procedure 05/04/24 11:49 Patient weight: obese Heart: regular rate and rhythm Lungs: clear to auscultation Airway: Mallampati scale class III Neurological: alert and oriented Last oral intake: >/= 8 hours ASA classification: III Emergent: no Anesthetic plan: proceed Anesthesia type and monitoring: general ETT and standard monitoring Results Review: All pre-operative results and documents have been reviewed as part of the pre-operative evaluation. Informed Consent: The patient's anesthetic plan and its attendant risks and benefits were discussed with the patient/family/POA. Questions were solicited and answers provided to the satisfaction of the patient/family/POA.
[2024-05-04] MEDS: ceFAZolin 2 GM/D5W 50 ML 2 GM/50 ML BAG IVPB (12:25)
[2024-05-04] MEDS: metroNIDAZOLE 500 MG/ISO 100ML 500 MG/100 ML BAG 100 MG IVPB (12:25)
--- NOTE | 2024-05-04 14:10 | P.OP_ITS ---
Procedure Note - Detailed Date of Procedure 05/04/24 Pre-op Diagnosis Complete small bowel obstruction Post-op Diagnosis Same Procedure Performed Laparoscopic enterolysis, release of small-bowel obstruction Surgeon Darrick Bustillos DO Anesthesia General and Local (0.5% bupivacaine with epinephrine) Indications This is a 64-year-old woman who presented to the emergency department with abdominal pain, bloating, and nausea. This started the day of her presentation to the emergency department. She was not passing any flatus had not had a bowel movement for a couple days. She had never had any symptoms like this in the past. CT in the emergency department showed evidence of a small-bowel obstruction with transition point in the right pelvis. She was admitted to hospital for further treatment. Small-bowel follow-through was obtained yesterday and she appeared to have a complete small-bowel obstruction with no contrast activity in the colon after 4 hours. NG tube was placed for decompression. Discussions were made with the patient about treatment options and decision was made to proceed with diagnostic laparoscopy, possible open, possible bowel resection. Findings Diagnostic laparoscopy was performed. The patient was found to have multiple a dhesive bands in the pelvis causing the bowel obstruction. Laparoscopic enterolysis was able to be performed to free up the adhesions and released the small bowel obstruction. After completing this, I was able to run the small bowel without any other signs of obstruction. There was minimal ascites within the pelvis and moderate firm stool within the cecum and ascending colon. The small bowel appeared healthy and viable. Description of Procedure Procedure as well as risks, benefits, and alternatives were discussed with the patient. Written consent was obtained and placed in chart prior to procedure. Patient was brought back to surgical suite. She was placed supine on operating table. Time-out was done to confirm patient and procedure. She was then intubated by anesthesia department. Ricardo catheter was placed. Her abdomen was then prepped and draped in sterile fashion using chlorhexidine prep. A 5 mm incision was made in the left subcostal region and a 5 mm Optiview trocar was advanced through the abdominal layers under direct visualization. Once inside the abdominal cavity, carbon dioxide insufflation was used to create a pneumoperitoneum. The camera was inserted in the abdominal cavity was carefully inspected. Dilated bowel was identified but no transition point was seen yet. There were a few omental adhesions to the midline umbilical region. A 5 mm incision was made in the left lateral abdomen and a 5 mm trocar was inserted under direct visualization. The omental adhesions were carefully taken down using scissors with electrocautery. I then placed another 5 mm incision in the right lateral abdomen and placed another 5 mm port. One more 5 mm incision was made in the infraumbilical region and a 5 mm trocar was inserted under direct visualization. The patient was placed in steep Trendelenburg position I identified the cecum and carefully reflected this out of the pelvis. The terminal ileum was identified and I began running this proximally with 2 laparoscopic graspers. I encountered an adhesive band and took this down using scissors. This freed up several loops of small bowel and was able to further reduce the bowel out of the pelvis. There then appeared to be another loop of adhesions which were again taken down using laparoscopic scissors. I then found 1 loop of small bowel that was adherent just inferior to the bladder. This was a small approximately 2 cm segment of adhesion involving the bowel. This adhesion was taken down again using laparoscopic scissors and this free this l oop of bowel up to be reduced at of the pelvis. Once this was done I was able to clearly visualize the remainder of the pelvis and no other significant adhesions were identified. I was then able to run the bowel proximally and distally and found no other adhesions or signs of obstruction. The small bowel all appeared healthy and viable. The ascites that was identified in the pelvis was suctioned. No other significant abnormalities were noted. The patient was then flattened out in bed in 1 final inspection was made around the abdomen. No other abnormalities were noted. The ports were then removed under direct visualization, the camera was removed and the pneumoperitoneum was released. 0.5% bupivacaine with epinephrine was infiltrated locally around each of the incisions. The skin of the incisions were then approximated using 4-0 Monocryl subcuticular sutures. Exofin glue was then applied on top. The patient was then awakened from anesthesia, extubated, and transferred to recovery. Estimated Blood Loss 5 Urine Output 1 Complications No immediate complications Condition Stable Disposition Floor [facility] Billing Surgery - Charge Forward: Surgery Billing
--- NOTE | 2024-05-04 18:01 | WPDANESPN ---
Anes - Prog Note Post-Op Date/Time: 05/04/24 18:01 Cardiovascular status: normal Respiratory status: normal Airway patency: baseline Mental status: baseline Post-Op hydration status: normal Vital Signs: Last Vital Signs Temp 36.3 C L 05/04/24 17:15 Pulse 96 05/04/24 17:15 Resp 18 05/04/24 17:15 BP 138/86 05/04/24 17:15 Pulse Ox 99 05/04/24 17:15 O2 Del Method Room Air 05/04/24 15:00 O2 Flow Rate 10 05/04/24 14:20 Pain Score (VAS): 06/05 I/O: Intake & Output 05/04/24 05/04/24 05/04/24 07:59 15:59 23:59 Intake Total 989.6 1300 Output Total 1 1 Balance 988.6 1299 Laboratory Tests 05/04/24 08:00 05/04/24 07:59 05/04/24 05/04/24 05/04/24 07:59 08:00 08:06 WBC 7.8 RBC 4.41 Hgb 13.7 Hct 41.1 MCV 93.2 MCH 31.1 MCHC 33.3 RDW 13.8 Plt Count 293 MPV 9.9 Sodium 141 Potassium 3.7 Chloride 107 Carbon Dioxide 22 Anion Gap 12 BUN 13 D Creatinine 0.66 L Estim Creat Clear Calc 78 Estimated GFR > 60 Glucose 121 H Lactic Acid 1.6 Calcium 9.5 Blood Type O Positive Antibody Screen Negative Post-procedural complaints: none Patient Feedback: Patient satisfied with anesthetic care.
[2024-05-05 00:26] VITALS: BP 124/70; PULSE 97; RESP 16; TEMP 37.1; O2SAT 98
[2024-05-05] MEDS: HYDROmorphone HCL INJ (*CRX) 1 MG/ML SYR 0.5 MG IV PUSH ×2 (03:03→10:46)
[2024-05-05] MEDS: SODIUM CHLORIDE 0.9% IV 1,000 ML 125 ML IV CONT (03:04)
[2024-05-05 04:53] VITALS: BP 130/77; PULSE 101; RESP 16; TEMP 36.8; O2SAT 99
[2024-05-05] MEDS: IBUPROFEN IV 800 MG/200 ML 800 MG/200 ML BAG 400 MG IVPB (07:44)
[2024-05-05 07:49] LABS: Hematocrit 34.4 % (37.0-47.0); Hemoglobin 11.2 g/dL (12.0-15.0); Mean Corpuscular HGB Conc 32.6 g/dl (32-36); Mean Corpuscular Hemoglobin 30.9 pg (26-34); Mean Corpuscular Volume 94.8 fl (80-100); Mean Platelet Volume 10.4 fl (7.4-10.4); Platelet Count Result 246 k/mm3 (150-375); Red Blood Count 3.63 M/mm3 (4.2-5.4); Red Cell Distribution Width 13.7 % (11.5-14.5); White Blood Count 4.2 K/mm3 (4.5-10.0)
[2024-05-05 07:52] LABS: Anion Gap 6 mmol/L (4-12); Blood Urea Nitrogen 11 mg/dL (7-17); Calcium 8.4 mg/dL (8.4-10.2); Carbon Dioxide 29 mmol/L (22-30); Chloride 107 mmol/L (98-107); Estimated CRCL calculation 76 ml/min; Estimated Glomerular Filt Rate > 60; Glucose 82 mg/dL (65-110); Potassium 3.4 mmol/L (3.4-5.0); Sodium 142 mmol/L (137-145)
[2024-05-05 08:00] VITALS: O2SAT 99
--- NOTE | 2024-05-05 08:12 | WPDANESPN ---
Anes - Prog Note Post-Op Date/Time: 05/05/24 08:12 Cardiovascular status: normal Respiratory status: normal Airway patency: baseline Mental status: baseline Post-Op hydration status: normal Vital Signs: Last Vital Signs Temp 98.3 F 05/05/24 04:53 Pulse 101 H 05/05/24 04:53 Resp 16 05/05/24 04:53 BP 130/77 05/05/24 04:53 Pulse Ox 99 05/05/24 08:00 O2 Del Method Room Air 05/05/24 08:00 O2 Flow Rate 10 05/04/24 14:20 Pain Score (VAS): 0/10 I/O: Intake & Output 05/04/24 05/05/24 05/05/24 23:59 07:59 15:59 Intake Total 1100 Output Total 750 Balance 350 Laboratory Tests 05/05/24 06:52 05/05/24 06:52 05/04/24 05/04/24 05/04/24 07:59 08:00 08:06 WBC 7.8 RBC 4.41 Hgb 13.7 Hct 41.1 MCV 93.2 MCH 31.1 MCHC 33.3 RDW 13.8 Plt Count 293 MPV 9.9 Sodium 141 Potassium 3.7 Chloride 107 Carbon Dioxide 22 Anion Gap 12 BUN 13 D Creatinine 0.66 L Estim Creat Clear Calc 78 Estimated GFR > 60 Glucose 121 H Lactic Acid 1.6 Calcium 9.5 Blood Type O Positive Antibody Screen Negative 05/05/24 06:52 WBC 4.2 L RBC 3.63 L Hgb 11.2 L Hct 34.4 L MCV 94.8 MCH 30.9 MCHC 32.6 RDW 13.7 Plt Count 246 MPV 10.4 Sodium 142 Potassium 3.4 Chloride 107 Carbon Dioxide 29 Anion Gap 6 BUN 11 Creatinine 0.68 L Estim Creat Clear Calc 76 Estimated GFR > 60 Glucose 82 Lactic Acid Calcium 8.4 Blood Type Antibody Screen Post-procedural complaints: none Patient Feedback: Patient satisfied with anesthetic care.
--- NOTE | 2024-05-05 08:15 | P.PNIM_ITS ---
Progress Note: A&P Assessment and Plan (1) Small bowel obstruction: Code(s): K56.609 - Unspecified intestinal obstruction, unspecified as to partial versus complete obstruction Status: Deleted Assessment and Plan: Abdomen/pelvis CT: A couple abrupt transition points in close apposition in the deep pelvis with intervening fluid-filled but not frankly dilated small bowel suspicious for early closed loop obstruction. SBFT: no contrast progression after 4 hours Post op day 1: Doing well, tolerating diet. No BM or flatus. - NG placed on 05/03, removed on 05/05 - Diet: Clear liquid diet - IV fluids 125 ml/hr - Monitor I&Os, vital signs, neuro status and patient is a fall risk - Monitor serum electrolytes and CBC - General surgery consulted to further evaluate small bowel obstruction s/p laparoscopy enterolysis and release of small bowel obstruction on 05/[address] Bustillos (2) Hypertension: Code(s): I10 - Essential (primary) hypertension Status: Chronic Assessment and Plan: Chronic - amlodipine 5 mg daily - blood pressures remain stable, continue to monitor Time Spent With Patient Time with patient: 25 - 35 minutes Subjective Date/time seen: 05/05/24 08:15 Interval history: 64-year-old female with hypertension ulcer, and history of laparoscopy, cholecystectomy, and hysterectomy who presented to the emergency department with complaints of abdominal pain. Patient is pleasant lying in bed. She states that her pain has significantly improved postoperatively. She is tolerating her liquid diet well denying nausea/vomiting and increased abdominal pain. She denies flatus or bowel movements. She has no other complaints denying chest pain, shortness of breath, palpitations. Review of Systems Review of Systems: All systems reviewed & are unremarkable except as noted in HPI and below Exam Narrative: AF HR 99 RR 16 Spo2 100 BP 130/67 General: female in no acute respiratory distress who is nontoxic appearing, lying semi recumbent in bed. HEENT: Normocephalic. Atraumatic. Extraocular movement intact. Sclera clear and anicteric. No facial asymmetry. Chest: Lungs are clear to auscultation bilaterally. No wheezes or crackles. CV: Heart was regular rate and rhythm. S1-S2. No murmurs, gallops, or rubs. Abd: Abdomen was soft. Tender. Distended. Hypoactive bowel sounds. Ext: No clubbing, cyanosis, or edema. 2+ DP pulses bilaterally. Neuro: Patient is alert. Speech is clear. Objective Data Vital Signs Vital Signs: Vital Signs - 24 hr 05/04/24 11:10 05/04/24 14:05 05/04/24 14:20 Temperature 97.9 F 98.2 F Pulse Rate 98 101 H 103 H Respiratory Rate 16 17 16 Blood Pressure 138/81 129/75 121/72 Pulse Oximetry 98 100 100 Oxygen Delivery Room Air Simple Face Mask Simple Face Mask Oxygen Flow Rate 10 10 05/04/24 14:30 05/04/24 14:45 05/04/24 15:00 Temperature Pulse Rate 106 H 106 H 103 H Respiratory Rate 16 14 18 Blood Pressure 136/73 155/84 H 151/90 H Pulse Oximetry 98 98 98 Oxygen Delivery Room Air Room Air Room Air Oxygen Flow Rate 05/04/24 15:30 05/04/24 15:45 05/04/24 16:15 Temperature 97.7 F 96.9 F L 97.4 F L Pulse Rate 99 95 97 Respiratory Rate 16 18 18 Blood Pressure 149/89 H 143/91 H 142/90 H Pulse Oximetry 99 100 99 Oxygen Delivery Oxygen Flow Rate 05/04/24 17:15 05/04/24 20:53 05/05/24 00:26 Temperature 97.3 F L 98.3 F 98.7 F Pulse Rate 96 99 97 Respiratory Rate 18 18 16 Blood Pressure 138/86 138/71 124/70 Pulse Oximetry 99 100 98 Oxygen Delivery Oxygen Flow Rate 05/05/24 04:53 05/05/24 08:00 Temperature 98.3 F Pulse Rate 101 H Respiratory Rate 16 Blood Pressure 130/77 Pulse Oximetry 99 99 Oxygen Delivery Room Air Oxygen Flow Rate Intake/Output Intake/Output: Intake & Output 05/02/24 05/03/24 05/04/24 05/05/24 23:59 23:59 23:59 23:59 Intake Total 142.5 2775.0 2289.6 1100 Output Total 1400 2 750 Balance 142.5 1375.0 2287.6 350 Meds/Results Medications: Active Medications Generic Name Dose Route Start Last Admin Trade Name Freq PRN Reason Stop Dose Admin Enoxaparin Sodium 40 mg 05/05/24 09:00 Enoxaparin 40 Mg/0.4 Ml Syringe SUB-Q DAILY TESSA Hydromorphone HCl 0.5 mg 05/02/24 18:56 05/05/24 03:03 Hydromorphone Hcl Inj (*Crx) 1 Mg/Ml Syr IV PUSH 0.5 mg Q3H PRN Administration Pain Rated 4-6 Hydromorphone HCl 1 mg 05/02/24 18:55 05/04/24 07:53 Hydromorphone Hcl Inj (*Crx) 1 Mg/Ml Syr IV PUSH 1 mg Q3H PRN Administration Pain Rated 7-10 Sodium Chloride 1,000 mls @ 125 mls/hr 05/02/24 11:00 05/05/24 03:04 Normal Saline Iv IV CONT 125 mls/hr .Q8H TESSA Administration Ibuprofen 800 mg in 200 mls @ 400 mls/hr 05/04/24 15:08 05/05/24 07:44 Caldolor 800 Mg/200 Ml IVPB 400 mls/hr Q6H PRN Administration Breakthrough Pain Rated 1-3 or NPO Naloxone HCl 0.1 mg 05/04/24 15:08 Naloxone Hcl 0.4 Mg/Ml Vial IV PUSH Q2M PRN Opiate Reversal Ondansetron HCl 4 mg 05/02/24 10:59 05/03/24 20:16 Ondansetron Inj 4 Mg/2 Ml Vial IV PUSH 4 mg Q4H PRN Administration Nausea Pantoprazole Sodium 40 mg 05/03/24 17:01 05/04/24 08:02 Pantoprazole Sodium Iv 40 Mg Vial IV PUSH 40 mg QAM TESSA Administration Radiology Results: ITS Impressions Abdomen/Pelvis CT 05/02/24 09:37 IMPRESSION: 1. A couple abrupt transition points in close apposition in the deep pelvis with intervening fluid-filled but not frankly dilated small bowel suspicious for ella y closed loop obstruction. Dr. Nath discussed these findings with Dr. Greenwood at 10:09 AM. Small Bowel X-Ray 05/03/24 16:25 IMPRESSION: 1. Small bowel obstruction. Abdomen X-Ray 05/03/24 17:38 IMPRESSION: Nasogastric tube in good position and ready for immediate use. Labs Labs: Laboratory Results - last 24 hr 05/04/24 05/04/24 05/04/24 07:59 08:00 08:06 WBC 7.8 RBC 4.41 Hgb 13.7 Hct 41.1 MCV 93.2 MCH 31.1 MCHC 33.3 RDW 13.8 Plt Count 293 MPV 9.9 Sodium 141 Potassium 3.7 Chloride 107 Carbon Dioxide 22 Anion Gap 12 BUN 13 D Creatinine 0.66 L Estim Creat Clear Calc 78 Estimated GFR > 60 Glucose 121 H Lactic Acid 1.6 Calcium 9.5 Blood Type O Positive Antibody Screen Negative 05/05/24 06:52 WBC 4.2 L RBC 3.63 L Hgb 11.2 L Hct 34.4 L MCV 94.8 MCH 30.9 MCHC 32.6 RDW 13.7 Plt Count 246 MPV 10.4 Sodium 142 Potassium 3.4 Chloride 107 Carbon Dioxide 29 Anion Gap 6 BUN 11 Creatinine 0.68 L Estim Creat Clear Calc 76 Estimated GFR > 60 Glucose 82 Lactic Acid Calcium 8.4 Blood Type Antibody Screen Quality VTE Prophylaxis VTE prophylaxis: mechanical ordered
--- NOTE | 2024-05-05 08:38 | PM.PNGS ---
Progress Note: A&P Assessment and Plan (1) Complete small bowel obstruction: Code(s): K56.601 - Complete intestinal obstruction, unspecified as to cause Status: Acute Assessment and Plan: Doing well on POD#1. Will remove NG this AM and start clear liquids Home once bowel function returned and tolerating solid diet (2) Hypertension: Code(s): I10 - Essential (primary) hypertension Status: Chronic Subjective Subjective Date/Time Seen: 05/05/24 08:38 Interval history: Feeling better. No more abdominal pain like before the surgery. No BM or flatus yet. Exam GI: Inspection: distended and incision (intact with glue) GI Palp: Yes Soft to palpation, Yes Tenderness to palpation present (GI) (minimal incisional) and No Guarding due to palpation present (GI) Auscultation: normal bowel sounds Objective Data Vital Signs Vital Signs: Vital Signs - 24 hr 05/04/24 11:10 05/04/24 14:05 05/04/24 14:20 Temperature 97.9 F 98.2 F Pulse Rate 98 101 H 103 H Respiratory Rate 16 17 16 Blood Pressure 138/81 129/75 121/72 Pulse Oximetry 98 100 100 Oxygen Delivery Room Air Simple Face Mask Simple Face Mask Oxygen Flow Rate 10 10 05/04/24 14:30 05/04/24 14:45 05/04/24 15:00 Temperature Pulse Rate 106 H 106 H 103 H Respiratory Rate 16 14 18 Blood Pressure 136/73 155/84 H 151/90 H Pulse Oximetry 98 98 98 Oxygen Delivery Room Air Room Air Room Air Oxygen Flow Rate 05/04/24 15:30 05/04/24 15:45 05/04/24 16:15 Temperature 97.7 F 96.9 F L 97.4 F L Pulse Rate 99 95 97 Respiratory Rate 16 18 18 Blood Pressure 149/89 H 143/91 H 142/90 H Pulse Oximetry 99 100 99 Oxygen Delivery Oxygen Flow Rate 05/04/24 17:15 05/04/24 20:53 05/05/24 00:26 Temperature 97.3 F L 98.3 F 98.7 F Pulse Rate 96 99 97 Respiratory Rate 18 18 16 Blood Pressure 138/86 138/71 124/70 Pulse Oximetry 99 100 98 Oxygen Delivery Oxygen Flow Rate 05/05/24 04:53 05/05/24 08:00 Temperature 98.3 F Pulse Rate 101 H Respiratory Rate 16 Blood Pressure 130/77 Pulse Oximetry 99 99 Oxygen Delivery Room Air Oxygen Flow Rate Intake/Output Intake/Output: Intake & Output 05/02/24 05/03/24 05/04/24 05/05/24 23:59 23:59 23:59 23:59 Intake Total 142.5 2775.0 2289.6 1100 Output Total 1400 2 750 Balance 142.5 1375.0 2287.6 350 Meds/Results Medications: Active Medications Generic Name Dose Route Start Last Admin Trade Name Freq PRN Reason Stop Dose Admin Enoxaparin Sodium 40 mg 05/05/24 09:00 Enoxaparin 40 Mg/0.4 Ml Syringe SUB-Q DAILY TESSA Hydromorphone HCl 0.5 mg 05/02/24 18:56 05/05/24 03:03 Hydromorphone Hcl Inj (*Crx) 1 Mg/Ml Syr IV PUSH 0.5 mg Q3H PRN Administration Pain Rated 4-6 Hydromorphone HCl 1 mg 05/02/24 18:55 05/04/24 07:53 Hydromorphone Hcl Inj (*Crx) 1 Mg/Ml Syr IV PUSH 1 mg Q3H PRN Administration Pain Rated 7-10 Ibuprofen 800 mg in 200 mls @ 400 mls/hr 05/04/24 15:08 05/05/24 07:44 Caldolor 800 Mg/200 Ml IVPB 400 mls/hr Q6H PRN Administration Breakthrough Pain Rated 1-3 or NPO Naloxone HCl 0.1 mg 05/04/24 15:08 Naloxone Hcl 0.4 Mg/Ml Vial IV PUSH Q2M PRN Opiate Reversal Ondansetron HCl 4 mg 05/02/24 10:59 05/03/24 20:16 Ondansetron Inj 4 Mg/2 Ml Vial IV PUSH 4 mg Q4H PRN Administration Nausea Pantoprazole Sodium 40 mg 05/03/24 17:01 05/04/24 08:02 Pantoprazole Sodium Iv 40 Mg Vial IV PUSH 40 mg QAM TESSA Administration Polyethylene Glycol 17 gm 05/05/24 09:00 Polyethylene Glycol 3350 17 Gm Powd.Pack PO QAM [facility] Radiology Results: ITS Impressions Abdomen/Pelvis CT 05/02/24 09:37 IMPRESSION: 1. A couple abrupt transition points in close apposition in the deep pelvis with intervening fluid-filled but not frankly dilated small bowel suspicious for early closed loop obstruction. Dr. Nath discussed these findings with Dr. Greenwood at 10:09 AM. Small Bowel X-Ray 05/03/24 16:25 IMPRESSION: 1. Small bowel obstruction. Abdomen X-Ray 05/03/24 17:38 IMPRESSION: Nasogastric tube in good position and ready for immediate use. Labs Labs: Laboratory Results - last 24 hr 05/04/24 05/05/24 08:00 06:52 WBC 4.2 L RBC 3.63 L Hgb 11.2 L Hct 34.4 L MCV 94.8 MCH 30.9 MCHC 32.6 RDW 13.7 Plt Count 246 MPV 10.4 Sodium 142 Potassium 3.4 Chloride 107 Carbon Dioxide 29 Anion Gap 6 BUN 11 Creatinine 0.68 L Estim Creat Clear Calc 76 Estimated GFR > 60 Glucose 82 Calcium 8.4 Blood Type O Positive Antibody Screen Negative
[2024-05-05] MEDS: polyethylene glycoL 3350 17 GM POWD.PACK PO (08:42)
[2024-05-05] MEDS: ENOXAPARIN 40 MG/0.4 ML SYRINGE SUB-Q (08:42)
[2024-05-05] MEDS: PANTOPRAZOLE SODIUM IV 40 MG VIAL IV PUSH (08:42)
[2024-05-05 08:53] VITALS: BP 130/67; PULSE 99; RESP 16; O2SAT 100
[2024-05-05] MEDS: amLODIPine BESYLATE 5 MG TABLET PO (15:29)
[2024-05-05] MEDS: VENLAFAXINE HCL XR 75 MG CAP.ER.24H PO (15:29)
[2024-05-05 15:31] VITALS: BP 130/68; PULSE 94; RESP 20; TEMP 37.1; O2SAT 100
[2024-05-05] MEDS: HYDROcodone/acetaminophen (*CRX) 7.5-325 MG TABLET 1 TAB PO ×2 (16:48→20:46)
[2024-05-05 22:00] VITALS: BP 124/61; PULSE 88; RESP 18; TEMP 36.3; O2SAT 98
[2024-05-06] MEDS: HYDROcodone/acetaminophen (*CRX) 7.5-325 MG TABLET 1 TAB PO ×3 (03:08→19:51)
[2024-05-06 06:00] VITALS: BP 119/59; PULSE 97; RESP 18; TEMP 36.1; O2SAT 100
[2024-05-06 06:51] LABS: Hematocrit 37.2 % (37.0-47.0); Mean Corpuscular HGB Conc 32.3 g/dl (32-36); Mean Corpuscular Volume 96.1 fl (80-100); Mean Platelet Volume 10.3 fl (7.4-10.4); Platelet Count Result 247 k/mm3 (150-375); Red Blood Count 3.87 M/mm3 (4.2-5.4); Red Cell Distribution Width 13.9 % (11.5-14.5); White Blood Count 3.5 K/mm3 (4.5-10.0)
[2024-05-06 07:01] LABS: Anion Gap 10 mmol/L (4-12); Blood Urea Nitrogen 10 mg/dL (7-17); Calcium 8.6 mg/dL (8.4-10.2); Carbon Dioxide 27 mmol/L (22-30); Chloride 103 mmol/L (98-107); Estimated CRCL calculation 75 ml/min; Estimated Glomerular Filt Rate > 60; Glucose 105 mg/dL (65-110); Potassium 2.9 mmol/L (3.4-5.0); Sodium 140 mmol/L (137-145)
--- NOTE | 2024-05-06 08:03 | PM.IMPN ---
Progress Note: A&P Assessment and Plan (1) Small bowel obstruction: Code(s): K56.609 - Unspecified intestinal obstruction, unspecified as to partial versus complete obstruction Status: Deleted Assessment and Plan: Abdomen/pelvis CT: A couple abrupt transition points in close apposition in the deep pelvis with intervening fluid-filled but not frankly dilated small bowel suspicious for early closed loop obstruction. SBFT: no contrast progression after 4 hours - NG placed on 05/03, removed on 05/05 - Diet: Clear liquid diet - IV fluids 125 ml/hr - Monitor I&Os, vital signs, neuro status and patient is a fall risk - Monitor serum electrolytes and CBC - General surgery consulted to further evaluate small bowel obstruction s/p laparoscopy enterolysis and release of small bowel obstruction on 05/[address] Bustillos 05/06: Patient developed a postoperative ileus Distended abdomen with increased pain. No BM or flatus. NG placed. (2) Hypertension: Code(s): I10 - Essential (primary) hypertension Status: Chronic Assessment and Plan: Chronic - amlodipine 5 mg daily - blood pressures remain stable, continue to monitor Time Spent With Patient Time with patient: 25 - 35 minutes Subjective Date/time seen: 05/06/24 08:03 Interval history: 64-year-old female with hypertension ulcer, and history of laparoscopy, cholecystectomy, and hysterectomy who presented to the emergency department with complaints of abdominal pain. Patient is pleasant lying in bed with family at bedside. She had her NG replaced after developing a postop ileus. She continues to endorse abdominal pain. She has not had a BM or flatus. She has no other complaints denying chest pain, shortness of breath, palpitations, nausea/vomiting. Review of Systems Review of Systems: All systems reviewed & are unremarkable except as noted in HPI and below Exam Narrative: AF HR 97 RR 18 SpO2 100 BP 119/59 General: female in no acute respiratory distress who is nontoxic appearing, lying semi recumbent in bed. HEENT: Normocephalic. Atraumatic. Extraocular movement intact. Sclera clear and anicteric. No facial asymmetry. NG tube in place. Chest: Lungs are clear to auscultation bilaterally. No wheezes or crackles. CV: Heart was regular rate and rhythm. S1-S2. No murmurs, gallops, or rubs. Abd: Abdomen was soft. Tender. Distended. Hypoactive bowel sounds. Ext: No clubbing, cyanosis, or edema. 2+ DP pulses bilaterally. Neuro: Patient is alert. Speech is clear. Objective Data Vital Signs Vital Signs: Vital Signs - 24 hr 05/05/24 08:53 05/05/24 15:31 05/05/24 22:00 Temperature 98.7 F 97.4 F L Pulse Rate 99 94 88 Respiratory Rate 16 20 18 Blood Pressure 130/67 130/68 124/61 Pulse Oximetry 100 100 98 05/06/24 06:00 Temperature 97.0 F L Pulse Rate 97 Respiratory Rate 18 Blood Pressure 119/59 L Pulse Oximetry 100 Intake/Output Intake/Output: Intake & Output 05/03/24 05/04/24 05/05/24 05/06/24 23:59 23:59 23:59 23:59 Intake Total 2775.0 2289.6 2620 550 Output Total 1400 2 1550 Balance 1375.0 2287.6 1070 550 Meds/Results Medications: Active Medications Generic Name Dose Route Start Last Admin Trade Name Freq PRN Reason Stop Dose Admin Hydrocodone Bitart/Acetaminophen 1 tab 05/05/24 15:08 Hydrocodone/Acetaminophen (*Crx) 5-325 Mg Tablet PO Q4H PRN Pain Rated 4-6 Hydrocodone Bitart/Acetaminophen 1 tab 05/05/24 15:08 05/06/24 03:08 Hydrocodone/Acetaminophen (*Crx) 7.5-325 Mg Tablet PO 1 tab Q4H PRN Administration Pain Rated 7-10 Amlodipine Besylate 5 mg 05/05/24 14:05 05/05/24 15:29 Amlodipine Besylate 5 Mg Tablet PO 5 mg DAILY TESSA Administration Enoxaparin Sodium 40 mg 05/05/24 09:00 05/05/24 08:42 Enoxaparin 40 Mg/0.4 Ml Syringe SUB-Q 40 mg DAILY TESSA Administration Hydromorphone HCl 0.5 mg 05/02/24 18:56 05/05/24 10:46 Hydromorphone Hcl Inj (*Crx) 1 Mg/Ml Syr IV PUSH 0.5 mg Q3H PRN Administration Pain Rated 4-6 Hydromorphone HCl 1 mg 05/02/24 18:55 05/04/24 07:53 Hydromorphone Hcl Inj (*Crx) 1 Mg/Ml Syr IV PUSH 1 mg Q3H PRN Administration Pain Rated 7-10 Hydromorphone HCl 1 mg 05/05/24 15:08 Hydromorphone Hcl Inj (*Crx) 1 Mg/Ml Syr IV PUSH Q2H PRN Breakthrough Pain Rated 7-10 or NPO Hydromorphone HCl 0.5 mg 05/05/24 15:08 Hydromorphone Hcl Inj (*Crx) 1 Mg/Ml Syr IV PUSH Q2H PRN Breakthrough Pain Rated 4-6 or NPO Ibuprofen 800 mg in 200 mls @ 400 mls/hr 05/04/24 15:08 05/05/24 07:44 Caldolor 800 Mg/200 Ml IVPB 400 mls/hr Q6H PRN Administration Breakthrough Pain Rated 1-3 or NPO Naloxone HCl 0.1 mg 05/04/24 15:08 Naloxone Hcl 0.4 Mg/Ml Vial IV PUSH Q2M PRN Opiate Reversal Ondansetron HCl 4 mg 05/02/24 10:59 05/03/24 20:16 Ondansetron Inj 4 Mg/2 Ml Vial IV PUSH 4 mg Q4H PRN Administration Nausea Pantoprazole Sodium 40 mg 05/03/24 17:01 05/05/24 08:42 Pantoprazole Sodium Iv 40 Mg Vial IV PUSH 40 mg QAM TESSA Administration Polyethylene Glycol 17 gm 05/05/24 09:00 05/05/24 08:42 Polyethylene Glycol 3350 17 Gm Powd.Pack PO 17 gm QAM TESSA Administration Venlafaxine HCl 75 mg 05/05/24 14:05 05/05/24 15:29 Venlafaxine Hcl Xr 75 Mg Cap.Er.24h PO 75 mg DAILY TESSA Administration Radiology Results: ITS Impressions Abdomen/Pelvis CT 05/02/24 09:37 IMPRESSION: 1. A couple abrupt transition points in close apposition in the deep pelvis with intervening fluid-filled but not frankly dilated small bowel suspicious for early closed loop obstruction. Dr. Nath discussed these findings with Dr. Greenwood at 10:09 AM. Small Bowel X-Ray 05/03/24 16:25 IMPRESSION: 1. Small bowel obstruction. Abdomen X-Ray 05/03/24 17:38 IMPRESSION: Nasogastric tube in good position and ready for immediate use. Labs Labs: Laboratory Results - last 24 hr 05/06/24 05:51 WBC 3.5 L RBC 3.87 L Hgb 12.0 Hct 37.2 MCV 96.1 MCH 31.0 MCHC 32.3 RDW 13.9 Plt Count 247 MPV 10.3 Sodium 140 Potassium 2.9 L Chloride 103 Carbon Dioxide 27 Anion Gap 10 BUN 10 Creatinine 0.70 Estim Creat Clear Calc 75 Estimated GFR > 60 Glucose 105 Calcium 8.6 Quality VTE Prophylaxis VTE prophylaxis: mechanical ordered
[2024-05-06] MEDS: PANTOPRAZOLE SODIUM IV 40 MG VIAL IV PUSH (08:13)
[2024-05-06] MEDS: VENLAFAXINE HCL XR 75 MG CAP.ER.24H PO (08:13)
[2024-05-06] MEDS: polyethylene glycoL 3350 17 GM POWD.PACK PO (08:13)
[2024-05-06] MEDS: amLODIPine BESYLATE 5 MG TABLET PO (08:13)
[2024-05-06] MEDS: ENOXAPARIN 40 MG/0.4 ML SYRINGE SUB-Q (08:13)
[2024-05-06] MEDS: POTASSIUM CHLORIDE INJ 40 MEQ in SODIUM CHLORIDE 0.9% IV 500 ML 130 MEQ IVPB (09:52)
[2024-05-06] MEDS: POTASSIUM CHLORIDE 20 MEQ ER TABLET 40 MEQ PO (09:52)
--- NOTE | 2024-05-06 10:19 | WPDPN ---
Progress Note: A&P Assessment and Plan (1) Complete small bowel obstruction: Code(s): K56.601 - Complete intestinal obstruction, unspecified as to cause Status: Acute Assessment and Plan: Resolved after laparoscopic adhesiolysis. (2) Hypokalemia: Code(s): E87.6 - Hypokalemia Status: Acute Assessment and Plan: Patient's potassium was low at 2.9 today. IV bolus has been ordered by hospitalist service. Will also add 2g of magnesium sulfate IV. Recheck levels tomorrow. (3) Postoperative paralytic ileus: Code(s): T81.89XA - Other complications of procedures, not elsewhere classified, initial encounter; K56.0 - Paralytic ileus Status: Acute Assessment and Plan: Postoperative ileus likely secondary to hypokalemia. We will keep her NPO and place an NG tube for nasogastric tube decompression today since she is so uncomfortable with abdominal distension. She is agreeable to having the NG tube replaced. Continue supportive care. Subjective Date/time seen: 05/06/24 10:19 Interval history: Patient's worse this morning. She is complaining of abdominal pain and abdominal distension. Some nausea but no emesis. No flatus today. Did not tolerate much liquids yesterday. Patient has low potassium today at 2.9. Exam GI: Other: Abdomen is distended firm. Diffuse mild tenderness. Port site incisions are healing well. Objective Data Vital Signs Vital Signs: Vital Signs - 24 hr 05/05/24 15:31 05/05/24 22:00 05/06/24 06:00 Temperature 37.1 C 36.3 C L 36.1 C L Pulse Rate 94 88 97 Respiratory Rate 20 18 18 Blood Pressure 130/68 124/61 119/59 L Pulse Oximetry 100 98 100 Intake/Output Intake/Output: Intake & Output 05/03/24 05/04/24 05/05/24 05/06/24 23:59 23:59 23:59 23:59 Intake Total 2775.0 2289.6 2620 550 Output Total 1400 2 1550 Balance 1375.0 2287.6 1070 550 Meds/Results Medications: Active Medications Generic Name Dose Route Start Last Admin Trade Name Freq PRN Reason Stop Dose Admin Hydrocodone Bitart/Acetaminophen 1 tab 05/05/24 15:08 Hydrocodone/Acetaminophen (*Crx) 5-325 Mg Tablet PO Q4H PRN Pain Rated 4-6 Hydrocodone Bitart/Acetaminophen 1 tab 05/05/24 15:08 05/06/24 09:55 Hydrocodone/Acetaminophen (*Crx) 7.5-325 Mg Tablet PO 1 tab Q4H PRN Administration Pain Rated 7-10 Amlodipine Besylate 5 mg 05/05/24 14:05 05/06/24 08:13 Amlodipine Besylate 5 Mg Tablet PO 5 mg DAILY TESSA Administration Enoxaparin Sodium 40 mg 05/05/24 09:00 05/06/24 08:13 Enoxaparin 40 Mg/0.4 Ml Syringe SUB-Q 40 mg DAILY TESSA Administration Hydromorphone HCl 0.5 mg 05/02/24 18:56 05/05/24 10:46 Hydromorphone Hcl Inj (*Crx) 1 Mg/Ml Syr IV PUSH 0.5 mg Q3H PRN Administration Pain Rated 4-6 Hydromorphone HCl 1 mg 05/02/24 18:55 05/04/24 07:53 Hydromorphone Hcl Inj (*Crx) 1 Mg/Ml Syr IV PUSH 1 mg Q3H PRN Administration Pain Rated 7-10 Hydromorphone HCl 1 mg 05/05/24 15:08 Hydromorphone Hcl Inj (*Crx) 1 Mg/Ml Syr IV PUSH Q2H PRN Breakthrough Pain Rated 7-10 or NPO Hydromorphone HCl 0.5 mg 05/05/24 15:08 Hydromorphone Hcl Inj (*Crx) 1 Mg/Ml Syr IV PUSH Q2H PRN Breakthrough Pain Rated 4-6 or NPO Ibuprofen 800 mg in 200 mls @ 400 mls/hr 05/04/24 15:08 05/05/24 07:44 Caldolor 800 Mg/200 Ml IVPB 400 mls/hr Q6H PRN Administration Breakthrough Pain Rated 1-3 or NPO Potassium Chloride 40 meq/ 520 mls @ 130 mls/hr 05/06/24 09:00 05/06/24 09:52 Sodium Chloride IVPB 05/06/24 12:59 130 mls/hr ONCE ONE Administration Magnesium Sulfate 2 gm in 50 mls @ 25 mls/hr 05/06/24 10:17 Magnesium Sulf 2 Gm/Water 50ml IVPB 05/06/24 12:16 ONCE ONE Naloxone HCl 0.1 mg 05/04/24 15:08 Naloxone Hcl 0.4 Mg/Ml Vial IV PUSH Q2M PRN Opiate Reversal Ondansetron HCl 4 mg 05/02/24 10:59 05/03/24 20:16 Ondansetron Inj 4 Mg/2 Ml Vial IV PUSH 4 mg Q4H PRN Administration Nausea Pantoprazole Sodium 40 mg 05/03/24 17:01 05/06/24 08:13 Pantoprazole Sodium Iv 40 Mg Vial IV PUSH 40 mg QAM TESSA Administration Polyethylene Glycol 17 gm 05/05/24 09:00 05/06/24 08:13 Polyethylene Glycol 3350 17 Gm Powd.Pack PO 17 gm QAM TESSA Administration Venlafaxine HCl 75 mg 05/05/24 14:05 05/06/24 08:13 Venlafaxine Hcl Xr 75 Mg Cap.Er.24h PO 75 mg DAILY TESSA Administration Radiology Results: ITS Impressions Abdomen/Pelvis CT 05/02/24 09:37 IMPRESSION: 1. A couple abrupt transition points in close apposition in the deep pelvis with intervening fluid-filled but not frankly dilated small bowel suspicious for early closed loop obstruction. Dr. Nath discussed these findings with Dr. Greenwood at 10:09 AM. Small Bowel X-Ray 05/03/24 16:25 IMPRESSION: 1. Small bowel obstruction. Abdomen X-Ray 05/03/24 17:38 IMPRESSION: Nasogastric tube in good position and ready for immediate use. Labs Labs: Laboratory Results - last 24 hr 05/06/24 05:51 WBC 3.5 L RBC 3.87 L Hgb 12.0 Hct 37.2 MCV 96.1 MCH 31.0 MCHC 32.3 RDW 13.9 Plt Count 247 MPV 10.3 Sodium 140 Potassium 2.9 L Chloride 103 Carbon Dioxide 27 Anion Gap 10 BUN 10 Creatinine 0.70 Estim Creat Clear Calc 75 Estimated GFR > 60 Glucose 105 Calcium 8.6
[2024-05-06] MEDS: HYDROmorphone HCL INJ (*CRX) 1 MG/ML SYR IV PUSH (13:07)
[2024-05-06 14:00] VITALS: BP 124/71; PULSE 100; RESP 16; TEMP 36.3; O2SAT 98
[2024-05-06] MEDS: MAGNESIUM SULF 2 GM/WATER 50ML 2 GM/50 ML BAG IVPB (15:49)
[2024-05-06] MEDS: DEXTROSE 5%/0.45% SOD CHL 1,000 ML 100 ML IV CONT (15:50)
[2024-05-06 21:34] VITALS: BP 127/76; PULSE 92; RESP 20; TEMP 36.5; O2SAT 99
[2024-05-06] MEDS: HYDROmorphone HCL INJ (*CRX) 1 MG/ML SYR 0.5 MG IV PUSH (23:45)
[2024-05-07] MEDS: HYDROcodone/acetaminophen (*CRX) 7.5-325 MG TABLET 1 TAB PO (05:46)
[2024-05-07 06:00] VITALS: BP 128/61; PULSE 95; RESP 18; TEMP 36.7; O2SAT 99
[2024-05-07] MEDS: DEXTROSE 5%/0.45% SOD CHL 1,000 ML 100 ML IV CONT (06:03)
[2024-05-07 06:30] LABS: Basophils Percent Auto 0.2 % (0.2-1.2); Eosinophils Absolute Auto 0.1 K/mm3 (0-0.3); Eosinophils Percent Auto 1.2 % (0-4.4); Hematocrit 37.2 % (37.0-47.0); Hemoglobin 11.9 g/dL (12.0-15.0); Immature Granulocyte Absolute 0.02 K/mm3 (0.00-0.031); Immature Granulocyte Percent A 0.5 % (0-0.5); Lymphocytes Absolute Auto 1.21 K/mm3 (0.9-3.2); Lymphocytes Percent Auto 29.1 % (18.3-44.2); Mean Corpuscular Hemoglobin 30.4 pg (26-34); Mean Corpuscular Volume 94.9 fl (80-100); Mean Platelet Volume 10.3 fl (7.4-10.4); Monocytes Absolute Auto 0.5 K/mm3 (0.1-0.6); Monocytes Percent Auto 10.8 % (2.6-8.5); Neutrophils Absolute Auto 2.4 K/mm3 (1.3-6.7); Neutrophils Percent Auto 58.2 % (45.5-73.1); Platelet Count Result 260 k/mm3 (150-375); Red Blood Count 3.92 M/mm3 (4.2-5.4); Red Cell Distribution Width 13.9 % (11.5-14.5); White Blood Count 4.2 K/mm3 (4.5-10.0)
[2024-05-07 06:36] LABS: Anion Gap 7 mmol/L (4-12); Blood Urea Nitrogen 6 mg/dL (7-17); Calcium 8.4 mg/dL (8.4-10.2); Carbon Dioxide 30 mmol/L (22-30); Chloride 102 mmol/L (98-107); Estimated CRCL calculation 88 ml/min; Estimated Glomerular Filt Rate > 60; Glucose 116 mg/dL (65-110); Magnesium 2.2 mg/dL (1.6-2.3); Phosphorus 2.5 mg/dL (2.5-4.5); Sodium 139 mmol/L (137-145)
--- NOTE | 2024-05-07 07:50 | PM.IMPN ---
Progress Note: A&P Assessment and Plan (1) Postoperative paralytic ileus: Code(s): T81.89XA - Other complications of procedures, not elsewhere classified, initial encounter; K56.0 - Paralytic ileus Status: Acute Assessment and Plan: 05/06: Patient developed a postoperative ileus Distended abdomen with increased pain. No BM or flatus. NG clamp trial started per surgery 05/07: Patient is now passing flatus still no BM, given a suppository per surgery NG clamp trial per surgery (2) Hypokalemia: Code(s): E87.6 - Hypokalemia Status: Acute Assessment and Plan: Patient continues to be hypokalemic on am labs. Given 40 meq IV x1. Mg WNL. Repeat K this afternoon and supplement if < 3.6 per surgery. (3) Small bowel obstruction: Code(s): K56.609 - Unspecified intestinal obstruction, unspecified as to partial versus complete obstruction Status: Deleted Assessment and Plan: Abdomen/pelvis CT: A couple abrupt transition points in close apposition in the deep pelvis with intervening fluid-filled but not frankly dilated small bowel suspicious for early closed loop obstruction. SBFT: no contrast progression after 4 hours - NG placed on 05/03, removed on 05/05 - Diet: Clear liquid diet - IV fluids 125 ml/hr - Monitor I&Os, vital signs, neuro status and patient is a fall risk - Monitor serum electrolytes and CBC - General surgery consulted to further evaluate small bowel obstruction s/p laparoscopy enterolysis and release of small bowel obstruction on 05/[address] Apollo Corado. (4) Hypertension: Code(s): I10 - Essential (primary) hypertension Status: Chronic Assessment and Plan: Chronic - blood pressures remain stable, continue to monitor Time Spent With Patient Time with patient: 25 - 35 minutes Subjective Date/time seen: 05/07/24 07:50 Interval history: 64-year-old female with hypertension ulcer, and history of laparoscopy, cholecystectomy, and hysterectomy who presented to the emergency department with complaints of abdominal pain. Patient is pleasant lying in bed. She states that her abdominal pain has improved and she has passed flatus but no bowel movement. NG clamp trial per surgery started. Patient has no other complaints denying chest pain, shortness of breath, palpitations, nausea/vomiting. Review of Systems Review of Systems: All systems reviewed & are unremarkable except as noted in HPI and below Exam Narrative: AF HR 95 RR 18 SpO2 99 BP 128/61 General: female in no acute respiratory distress who is nontoxic appearing, lying semi recumbent in bed. HEENT: Normocephalic. Atraumatic. Extraocular movement intact. Sclera clear and anicteric. No facial asymmetry. NG tube in place, clamped. Chest: Lungs are clear to auscultation bilaterally. No wheezes or crackles. CV: Heart was regular rate and rhythm. S1-S2. No murmurs, gallops, or rubs. Abd: Abdomen was soft. Slightly tender. Distended. Hypoactive bowel sounds. Ext: No clubbing, cyanosis, or edema. 2+ DP pulses bilaterally. Neuro: Patient is alert. Speech is clear. Objective Data Vital Signs Vital Signs: Vital Signs - 24 hr 05/06/24 08:00 05/06/24 14:00 05/06/24 21:34 Temperature 97.4 F L 97.7 F Pulse Rate 100 92 Respiratory Rate 16 20 Blood Pressure 124/71 127/76 Pulse Oximetry 98 99 Oxygen Delivery Room Air 05/07/24 06:00 Temperature 98.0 F Pulse Rate 95 Respiratory Rate 18 Blood Pressure 128/61 Pulse Oximetry 99 Oxygen Delivery Intake/Output Intake/Output: Intake & Output 05/04/24 05/05/24 05/06/24 05/07/24 23:59 23:59 23:59 23:59 Intake Total 2289.6 2620 1120 1050 Output Total 2 1550 275 500 Balance 2287.6 1070 845 550 Meds/Results Medications: Active Medications Generic Name Dose Route Start Last Admin Trade Name Freq PRN Reason Stop Dose Admin Hydrocodone Bitart/Acetaminophen 1 tab 05/05/24 15:08 Hydrocodone/Acetaminophen (*Crx) 5-325 Mg Tablet PO Q4H PRN Pain Rated 4-6 Hydrocodone Bitart/Acetaminophen 1 tab 05/05/24 15:08 05/07/24 05:46 Hydrocodone/Acetaminophen (*Crx) 7.5-325 Mg Tablet PO 1 tab Q4H PRN Administration Pain Rated 7-10 Amlodipine Besylate 5 mg 05/05/24 14:05 05/06/24 08:13 Amlodipine Besylate 5 Mg Tablet PO 5 mg DAILY TESSA Administration Enoxaparin Sodium 40 mg 05/05/24 09:00 05/06/24 08:13 Enoxaparin 40 Mg/0.4 Ml Syringe SUB-Q 40 mg DAILY TESSA Administration Hydromorphone HCl 0.5 mg 05/02/24 18:56 05/06/24 23:45 Hydromorphone Hcl Inj (*Crx) 1 Mg/Ml Syr IV PUSH 0.5 mg Q3H PRN Administration Pain Rated 4-6 Hydromorphone HCl 1 mg 05/02/24 18:55 05/06/24 13:07 Hydromorphone Hcl Inj (*Crx) 1 Mg/Ml Syr IV PUSH 1 mg Q3H PRN Administration Pain Rated 7-10 Hydromorphone HCl 1 mg 05/05/24 15:08 Hydromorphone Hcl Inj (*Crx) 1 Mg/Ml Syr IV PUSH Q2H PRN Breakthrough Pain Rated 7-10 or NPO Hydromorphone HCl 0.5 mg 05/05/24 15:08 Hydromorphone Hcl Inj (*Crx) 1 Mg/Ml Syr IV PUSH Q2H PRN Breakthrough Pain Rated 4-6 or NPO Ibuprofen 800 mg in 200 mls @ 400 mls/hr 05/04/24 15:08 05/05/24 07:44 Caldolor 800 Mg/200 Ml IVPB 400 mls/hr Q6H PRN Administration Breakthrough Pain Rated 1-3 or NPO Dextrose/Sodium Chloride 1,000 mls @ 100 mls/hr 05/06/24 10:25 05/07/24 06:03 Dextrose 5% Sodium Chloride 0.45% IV CONT 100 mls/hr .Q10H TESSA Administration Naloxone HCl 0.1 mg 05/04/24 15:08 Naloxone Hcl 0.4 Mg/Ml Vial IV PUSH Q2M PRN Opiate Reversal Ondansetron HCl 4 mg 05/02/24 10:59 05/03/24 20:16 Ondansetron Inj 4 Mg/2 Ml Vial IV PUSH 4 mg Q4H PRN Administration Nausea Pantoprazole Sodium 40 mg 05/03/24 17:01 05/06/24 08:13 Pantoprazole Sodium Iv 40 Mg Vial IV PUSH 40 mg QAM TESSA Administration Polyethylene Glycol 17 gm 05/05/24 09:00 05/06/24 08:13 Polyethylene Glycol 3350 17 Gm Powd.Pack PO 17 gm QAM TESSA Administration Venlafaxine HCl 75 mg 05/05/24 14:05 05/06/24 08:13 Venlafaxine Hcl Xr 75 Mg Cap.Er.24h PO 75 mg DAILY TESSA Administration Radiology Results: ITS Impressions Abdomen/Pelvis CT 05/02/24 09:37 IMPRESSION: 1. A couple abrupt transition points in close apposition in the deep pelvis with intervening fluid-filled but not frankly dilated small bowel suspicious for early closed loop obstruction. Dr. Nath discussed these findings with Dr. Greenwood at 10:09 AM. Small Bowel X-Ray 05/03/24 16:25 IMPRESSION: 1. Small bowel obstruction. Abdomen X-Ray 05/06/24 11:11 IMPRESSION: 1. Nasogastric tube tip in the stomach. Labs Labs: Laboratory Results - last 24 hr 05/07/24 05:38 WBC 4.2 L RBC 3.92 L Hgb 11.9 L Hct 37.2 MCV 94.9 MCH 30.4 MCHC 32.0 RDW 13.9 Plt Count 260 MPV 10.3 Immature Gran % (Auto) 0.5 Neut % (Auto) 58.2 Lymph % (Auto) 29.1 [place] % (Auto) 10.8 H Eos % (Auto) 1.2 Baso % (Auto) 0.2 Lymph # (Auto) 1.21 [place] # (Auto) 0.5 Eos # (Auto) 0.1 Baso # (Auto) 0.0 Abs Immat Gran (auto) 0.02 Absolute Neuts (auto) 2.4 Absolute Nucleated RBC 0.000 Nucleated RBC % 0.0 Sodium 139 Potassium 3.0 L Chloride 102 Carbon Dioxide 30 Anion Gap 7 BUN 6 L Creatinine 0.59 L Estim Creat Clear Calc 88 Estimated GFR > 60 Glucose 116 H Calcium 8.4 Phosphorus 2.5 Magnesium 2.2 Quality VTE Prophylaxis VTE prophylaxis: mechanical ordered
[2024-05-07] MEDS: PANTOPRAZOLE SODIUM IV 40 MG VIAL IV PUSH (08:51)
[2024-05-07] MEDS: ENOXAPARIN 40 MG/0.4 ML SYRINGE SUB-Q (09:32)
[2024-05-07] MEDS: POTASSIUM CHLORIDE INJ 40 MEQ in SODIUM CHLORIDE 0.9% IV 500 ML 130 MEQ IVPB (09:32)
--- NOTE | 2024-05-07 10:05 | PC.NURSE ---
Notified Kathie BECKHAM unable to give PO meds patient has NG tube to continuous suction.
--- NOTE | 2024-05-07 11:20 | P.PN_ITS ---
Progress Note: A&P Assessment and Plan (1) Postoperative paralytic ileus: Code(s): T81.89XA - Other complications of procedures, not elsewhere classified, initial encounter; K56.0 - Paralytic ileus Status: Acute Assessment and Plan: Seems to be resolving. She started to pass flatus but no bowel movement yet.. We will go ahead and clamp her NG tube today. Keep walking in the halls. Go ahead give her a suppository today. Replace the NG tube to suction he gets nauseated with it clamped. Tolerating clamped NG tube overnight than likely removed tomorrow start on clear liquids. We need to keep an eye on her potassium level. Repeat bolus again later today if her potassium is still below 3.6. (2) Hypokalemia: Code(s): E87.6 - Hypokalemia Status: Acute Assessment and Plan: Potassium level was 3.0 again today. Bolus is now refusing. Magnesium level was fine. She might be more potassium later today. (3) Complete small bowel obstruction: Code(s): K56.601 - Complete intestinal obstruction, unspecified as to cause Status: Acute Assessment and Plan: Resolved after laparoscopic adhesiolysis. Subjective Date/time seen: 05/07/24 11:20 Interval history: Patient started passing flatus but no bowel movement yet.. Less distended with nasogastric tube in place. Magnesium level is fine. Potassium is 3.0 today and she is getting another bolus to replace. She is up sitting in a chair. Exam GI: Other: Abdomen is soft still mildly distended. Minimal tenderness to palpation. Incisions healing well. Bowel sounds noted. Objective Data Vital Signs Vital Signs: Vital Signs - 24 hr 05/06/24 14:00 05/06/24 21:34 05/07/24 06:00 Temperature 36.3 C L 36.5 C 36.7 C Pulse Rate 100 92 95 Respiratory Rate 16 20 18 Blood Pressure 124/71 127/76 128/61 Pulse Oximetry 98 99 99 Oxygen Delivery 05/07/24 09:30 Temperature Pulse Rate Respiratory Rate Blood Pressure Pulse Oximetry Oxygen Delivery Room Air Intake/Output Intake/Output: Intake & Output 05/04/24 05/05/24 05/06/24 05/07/24 23:59 23:59 23:59 23:59 Intake Total 2289.6 2620 1120 1050 Output Total 2 1550 275 500 Balance 2287.6 1070 845 550 Meds/Results Medications: Active Medications Generic Name Dose Route Start Last Admin Trade Name Freq PRN Reason Stop Dose Admin Hydrocodone Bitart/Acetaminophen 1 tab 05/05/24 15:08 Hydrocodone/Acetaminophen (*Crx) 5-325 Mg Tablet PO Q4H PRN Pain Rated 4-6 Hydrocodone Bitart/Acetaminophen 1 tab 05/05/24 15:08 05/07/24 05:46 Hydrocodone/Acetaminophen (*Crx) 7.5-325 Mg Tablet PO 1 tab Q4H PRN Administration Pain Rated 7-10 Amlodipine Besylate 5 mg 05/05/24 14:05 05/07/24 10:05 Amlodipine Besylate 5 Mg Tablet PO Not Given DAILY TESSA Enoxaparin Sodium 40 mg 05/05/24 09:00 05/07/24 09:32 Enoxaparin 40 Mg/0.4 Ml Syringe SUB-Q 40 mg DAILY TESSA Administration Hydromorphone HCl 0.5 mg 05/02/24 18:56 05/06/24 23:45 Hydromorphone Hcl Inj (*Crx) 1 Mg/Ml Syr IV PUSH 0.5 mg Q3H PRN Administration Pain Rated 4-6 Hydromorphone HCl 1 mg 05/02/24 18:55 05/06/24 13:07 Hydromorphone Hcl Inj (*Crx) 1 Mg/Ml Syr IV PUSH 1 mg Q3H PRN Administration Pain Rated 7-10 Hydromorphone HCl 1 mg 05/05/24 15:08 Hydromorphone Hcl Inj (*Crx) 1 Mg/Ml Syr IV PUSH Q2H PRN Breakthrough Pain Rated 7-10 or NPO Hydromorphone HCl 0.5 mg 05/05/24 15:08 Hydromorphone Hcl Inj (*Crx) 1 Mg/Ml Syr IV PUSH Q2H PRN Breakthrough Pain Rated 4-6 or NPO Ibuprofen 800 mg in 200 mls @ 400 mls/hr 05/04/24 15:08 05/05/24 07:44 Caldolor 800 Mg/200 Ml IVPB 400 mls/hr Q6H PRN Administration Breakthrough Pain Rated 1-3 or NPO Dextrose/Sodium Chloride 1,000 mls @ 100 mls/hr 05/06/24 10:25 05/07/24 06:03 Dextrose 5% Sodium Chloride 0.45% IV CONT 100 mls/hr .Q10H TESSA Administration Potassium Chloride 40 meq/ 520 mls @ 130 mls/hr 05/07/24 09:00 05/07/24 09:32 Sodium Chloride IVPB 05/07/24 12:59 130 mls/hr ONCE ONE Administration Naloxone HCl 0.1 mg 05/04/24 15:08 Naloxone Hcl 0.4 Mg/Ml Vial IV PUSH Q2M PRN Opiate Reversal Ondansetron HCl 4 mg 05/02/24 10:59 05/03/24 20:16 Ondansetron Inj 4 Mg/2 Ml Vial IV PUSH 4 mg Q4H PRN Administration Nausea Pantoprazole Sodium 40 mg 05/03/24 17:01 05/07/24 08:51 Pantoprazole Sodium Iv 40 Mg Vial IV PUSH 40 mg QAM TESSA Administration Polyethylene Glycol 17 gm 05/05/24 09:00 05/07/24 10:06 Polyethylene Glycol 3350 17 Gm Powd.Pack PO Not Given QAM TESSA Venlafaxine HCl 75 mg 05/05/24 14:05 05/07/24 10:06 Venlafaxine Hcl Xr 75 Mg Cap.Er.24h PO Not Given DAILY TESSA Radiology Results: ITS Impressions Abdomen/Pelvis CT 05/02/24 09:37 IMPRESSION: 1. A couple abrupt transition points in close apposition in the deep pelvis with intervening fluid-filled but not frankly dilated small bowel suspicious for early closed loop obstruction. Dr. Nath discussed these findings with Dr. Anaya adames at 10:09 AM. Small Bowel X-Ray 05/03/24 16:25 IMPRESSION: 1. Small bowel obstruction. Abdomen X-Ray 05/06/24 11:11 IMPRESSION: 1. Nasogastric tube tip in the stomach. Labs Labs: Laboratory Results - last 24 hr 05/07/24 05:38 WBC 4.2 L RBC 3.92 L Hgb 11.9 L Hct 37.2 MCV 94.9 MCH 30.4 MCHC 32.0 RDW 13.9 Plt Count 260 MPV 10.3 Immature Gran % (Auto) 0.5 Neut % (Auto) 58.2 Lymph % (Auto) 29.1 Pike % (Auto) 10.8 H Eos % (Auto) 1.2 Baso % (Auto) 0.2 Lymph # (Auto) 1.21 Pike # (Auto) 0.5 Eos # (Auto) 0.1 Baso # (Auto) 0.0 Abs Immat Gran (auto) 0.02 Absolute Neuts (auto) 2.4 Absolute Nucleated RBC 0.000 Nucleated RBC % 0.0 Sodium 139 Potassium 3.0 L Chloride 102 Carbon Dioxide 30 Anion Gap 7 BUN 6 L Creatinine 0.59 L Estim Creat Clear Calc 88 Estimated GFR > 60 Glucose 116 H Calcium 8.4 Phosphorus 2.5 Magnesium 2.2
[2024-05-07 14:00] VITALS: BP 135/81; PULSE 96; RESP 22; TEMP 36.6; O2SAT 100
[2024-05-07] MEDS: HYDROmorphone HCL INJ (*CRX) 1 MG/ML SYR IV PUSH ×3 (15:51→21:43)
[2024-05-07] MEDS: BISACODYL 10 MG SUPPOSITORY RECTAL (17:11)
[2024-05-07 18:41] LABS: Potassium 3.8 mmol/L (3.4-5.0)
[2024-05-07 22:00] VITALS: BP 130/78; PULSE 96; RESP 18; TEMP 36.3; O2SAT 100
[2024-05-08] MEDS: HYDROmorphone HCL INJ (*CRX) 1 MG/ML SYR IV PUSH (02:03)
[2024-05-08 06:00] VITALS: BP 129/67; PULSE 92; RESP 16; TEMP 36.6; O2SAT 99
[2024-05-08 07:37] LABS: Hematocrit 35.6 % (37.0-47.0); Hemoglobin 11.5 g/dL (12.0-15.0); Mean Corpuscular HGB Conc 32.3 g/dl (32-36); Mean Corpuscular Hemoglobin 30.8 pg (26-34); Mean Corpuscular Volume 95.4 fl (80-100); Platelet Count Result 252 k/mm3 (150-375); Red Blood Count 3.73 M/mm3 (4.2-5.4); White Blood Count 4.9 K/mm3 (4.5-10.0)
--- NOTE | 2024-05-08 08:04 | PM.IMPN ---
Progress Note: A&P Assessment and Plan (1) Postoperative paralytic ileus: Code(s): T81.89XA - Other complications of procedures, not elsewhere classified, initial encounter; K56.0 - Paralytic ileus Status: Acute Assessment and Plan: 05/06: Patient developed a postoperative ileus Distended abdomen with increased pain. No BM or flatus. NG clamp trial started per surgery 05/07: Patient is now passing flatus still no BM, given a suppository per surgery NG clamp trial per surgery 05/08: Patient had a liquid bowel movement today following a suppository and continues to pass flatus. Continues to endorse abdominal tightness and pain with hypoactive bowel sounds. NG remains on suction. Surgery plans to give another Dulcolax suppository. (2) Hypokalemia: Code(s): E87.6 - Hypokalemia Status: Acute Assessment and Plan: Patient continues to be hypokalemic on am labs. Given 40 meq IV x1. Mg WNL. (3) Small bowel obstruction: Code(s): K56.609 - Unspecified intestinal obstruction, unspecified as to partial versus complete obstruction Status: Deleted Assessment and Plan: Abdomen/pelvis CT: A couple abrupt transition points in close apposition in the deep pelvis with intervening fluid-filled but not frankly dilated small bowel suspicious for early closed loop obstruction. SBFT: no contrast progression after 4 hours - NG placed on 05/03, removed on 05/05 - Diet: Clear liquid diet - IV fluids 125 ml/hr - Monitor I&Os, vital signs, neuro status and patient is a fall risk - Monitor serum electrolytes and CBC - General surgery consulted to further evaluate small bowel obstruction s/p laparoscopy enterolysis and release of small bowel obstruction on 05/[address] Apollo Corado. (4) Hypertension: Code(s): I10 - Essential (primary) hypertension Status: Chronic Assessment and Plan: Chronic - blood pressures remain stable, continue to monitor Time Spent With Patient Time with patient: 25 - 35 minutes Subjective Date/time seen: 05/08/24 08:04 Interval history: 64-year-old female with hypertension ulcer, and history of laparoscopy, cholecystectomy, and hysterectomy who presented to the emergency department with complaints of abdominal pain. Patient is pleasant lying in bed. She had a liquid bowel movement today and continues to pass flatus. Continues to endorse abdominal tightness and pain with hypoactive bowel sounds. NG remains on suction. She has no other complaints denying chest pain, shortness of breath, palpitations, nausea/vomiting. Review of Systems Review of Systems: All systems reviewed & are unremarkable except as noted in HPI and below Exam Narrative: AF HR 92 RR 16 SpO2 99 BP 129/67 General: female in no acute respiratory distress who is nontoxic appearing, lying semi recumbent in bed. HEENT: Normocephalic. Atraumatic. Extraocular movement intact. Sclera clear and anicteric. No facial asymmetry. NG tube in place hooked to suction. Chest: Lungs are clear to auscultation bilaterally. No wheezes or crackles. CV: Heart was regular rate and rhythm. S1-S2. No murmurs, gallops, or rubs. Abd: Abdomen was soft. Slightly tender. Distended. Hypoactive bowel sounds. Ext: No clubbing, cyanosis, or edema. 2+ DP pulses bilaterally. Neuro: Patient is alert. Speech is clear. Objective Data Vital Signs Vital Signs: Vital Signs - 24 hr 05/07/24 09:30 05/07/24 14:00 05/07/24 22:00 Temperature 97.9 F 97.3 F L Pulse Rate 96 96 Respiratory Rate 22 H 18 Blood Pressure 135/81 130/78 Pulse Oximetry 100 100 Oxygen Delivery Room Air 05/08/24 06:00 Temperature 97.8 F Pulse Rate 92 Respiratory Rate 16 Blood Pressure 129/67 Pulse Oximetry 99 Oxygen Delivery Intake/Output Intake/Output: Intake & Output 05/05/24 05/06/24 05/07/24 05/08/24 23:59 23:59 23:59 23:59 Intake Total 2620 1120 2570 0 Output Total 1550 275 500 Balance 0027 248 2102 0 Meds/Results Medications: Active Medications Generic Name Dose Route Start Last Admin Trade Name Freq PRN Reason Stop Dose Admin Hydrocodone Bitart/Acetaminophen 1 tab 05/05/24 15:08 Hydrocodone/Acetaminophen (*Crx) 5-325 Mg Tablet PO Q4H PRN Pain Rated 4-6 Hydrocodone Bitart/Acetaminophen 1 tab 05/05/24 15:08 05/07/24 05:46 Hydrocodone/Acetaminophen (*Crx) 7.5-325 Mg Tablet PO 1 tab Q4H PRN Administration Pain Rated 7-10 Amlodipine Besylate 5 mg 05/05/24 14:05 05/07/24 10:05 Amlodipine Besylate 5 Mg Tablet PO Not Given DAILY TESSA Enoxaparin Sodium 40 mg 05/05/24 09:00 05/07/24 09:32 Enoxaparin 40 Mg/0.4 Ml Syringe SUB-Q 40 mg DAILY TESSA Administration Hydromorphone HCl 0.5 mg 05/02/24 18:56 05/06/24 23:45 Hydromorphone Hcl Inj (*Crx) 1 Mg/Ml Syr IV PUSH 0.5 mg Q3H PRN Administration Pain Rated 4-6 Hydromorphone HCl 1 mg 05/02/24 18:55 05/08/24 02:03 Hydromorphone Hcl Inj (*Crx) 1 Mg/Ml Syr IV PUSH 1 mg Q3H PRN Administration Pain Rated 7-10 Hydromorphone HCl 1 mg 05/05/24 15:08 05/07/24 18:05 Hydromorphone Hcl Inj (*Crx) 1 Mg/Ml Syr IV PUSH 1 mg Q2H PRN Administration Breakthrough Pain Rated 7-10 or NPO Hydromorphone HCl 0.5 mg 05/05/24 15:08 Hydromorphone Hcl Inj (*Crx) 1 Mg/Ml Syr IV PUSH Q2H PRN Breakthrough Pain Rated 4-6 or NPO Ibuprofen 800 mg in 200 mls @ 400 mls/hr 05/04/24 15:08 05/05/24 07:44 Caldolor 800 Mg/200 Ml IVPB 400 mls/hr Q6H PRN Administration Breakthrough Pain Rated 1-3 or NPO Dextrose/Sodium Chloride 1,000 mls @ 100 mls/hr 05/06/24 10:25 05/08/24 00:00 Dextrose 5% Sodium Chloride 0.45% IV CONT 100 mls/hr .Q10H TESSA Administration Naloxone HCl 0.1 mg 05/04/24 15:08 Naloxone Hcl 0.4 Mg/Ml Vial IV PUSH Q2M PRN Opiate Reversal Ondansetron HCl 4 mg 05/02/24 10:59 05/03/24 20:16 Ondansetron Inj 4 Mg/2 Ml Vial IV PUSH 4 mg Q4H PRN Administration Nausea Pantoprazole Sodium 40 mg 02/05/25 17:01 05/07/24 08:51 Pantoprazole Sodium Iv 40 Mg Vial IV PUSH 40 mg QAM TESSA Administration Polyethylene Glycol 17 gm 05/05/24 09:00 05/07/24 10:06 Polyethylene Glycol 3350 17 Gm Powd.Pack PO Not Given QAM TESSA Venlafaxine HCl 75 mg 05/05/24 14:05 05/07/24 10:06 Venlafaxine Hcl Xr 75 Mg Cap.Er.24h PO Not Given DAILY TESSA Radiology Results: ITS Impressions Abdomen/Pelvis CT 05/02/24 09:37 IMPRESSION: 1. A couple abrupt transition points in close apposition in the deep pelvis with intervening fluid-filled but not frankly dilated small bowel suspicious for early closed loop obstruction. Dr. Nath discussed these findings with Dr. Greenwood at 10:09 AM. Small Bowel X-Ray 05/03/24 16:25 IMPRESSION: 1. Small bowel obstruction. Abdomen X-Ray 05/06/24 11:11 IMPRESSION: 1. Nasogastric tube tip in the stomach. Labs Labs: Laboratory Results - last 24 hr 05/07/24 05/08/24 18:31 06:49 WBC 4.9 RBC 3.73 L Hgb 11.5 L Hct 35.6 L MCV 95.4 MCH 30.8 MCHC 32.3 RDW 14.0 Plt Count 252 MPV 10.0 Potassium 3.8 Quality VTE Prophylaxis VTE prophylaxis: mechanical ordered
[2024-05-08 08:11] LABS: Alanine Aminotransferase 91 U/L (6-35); Albumin Level 3.4 g/dL (3.5-5.1); Alkaline Phosphatase 133 U/L (38-126); Anion Gap 5 mmol/L (4-12); Aspartate Amino Transferase 90 U/L (14-36); Bilirubin,Total 0.8 mg/dL (0.2-1.3); Blood Urea Nitrogen 3 mg/dL (7-17); Calcium 8.7 mg/dL (8.4-10.2); Carbon Dioxide 32 mmol/L (22-30); Chloride 101 mmol/L (98-107); Estimated CRCL calculation 95 ml/min; Estimated Glomerular Filt Rate > 60; Glucose 97 mg/dL (65-110); Potassium 3.5 mmol/L (3.4-5.0); Sodium 138 mmol/L (137-145)
[2024-05-08] MEDS: HYDROmorphone HCL INJ (*CRX) 1 MG/ML SYR 0.5 MG IV PUSH (08:52)
[2024-05-08] MEDS: PANTOPRAZOLE SODIUM IV 40 MG VIAL IV PUSH (08:52)
[2024-05-08] MEDS: ENOXAPARIN 40 MG/0.4 ML SYRINGE SUB-Q (08:53)
[2024-05-08] MEDS: POTASSIUM CHLORIDE INJ 40 MEQ in SODIUM CHLORIDE 0.9% IV 500 ML 130 MEQ IVPB (09:52)
[2024-05-08] MEDS: IBUPROFEN IV 800 MG/200 ML 800 MG/200 ML BAG 400 MG IVPB ×3 (12:26→23:47)
[2024-05-08 14:00] VITALS: BP 121/71; PULSE 91; RESP 18; TEMP 36.1; O2SAT 99
--- NOTE | 2024-05-08 14:43 | P.PNGS_ITS ---
Progress Note: A&P Assessment and Plan (1) Postoperative paralytic ileus: Code(s): T81.89XA - Other complications of procedures, not elsewhere classified, initial encounter; K56.0 - Paralytic ileus Status: Acute Assessment and Plan: * She did not tolerate the NG clamping trial yesterday. Not much bowel function yet. We will give another Dulcolax suppository. * Continue NG tube decompression, bowel rest, IV fluids * Encourage walking the halls and getting up to the chair today * Nursing is going to try the IV ibuprofen for pain control as well to try to minimize narcotics (2) Hypokalemia: Code(s): E87.6 - Hypokalemia Status: Acute Assessment and Plan: * Potassium 3.5 this morning and she was given IV KCL this morning (3) Complete small bowel obstruction: Code(s): K56.601 - Complete intestinal obstruction, unspecified as to cause Status: Acute Assessment and Plan: * Resolved after laparoscopic adhesiolysis. Plan I have discussed the patient's case and plan of care with Dr. Bustillos Subjective Subjective Date/Time Seen: 05/08/24 14:43 Patient reports: no new complaints and afebrile Interval history: Patient had NG placed over the weekend for abdominal distension and suspicion for postoperative ileus. No nausea or vomiting. She reports her distention has improved. She is having upper abdominal pain that has also improved since the NG tube was placed. She was clamped yesterday for about 5 hours and developed abdominal pain and cramping, therefore her NG tube was hooked back up to suction. She was given a suppository with 1 liquid bowel movement after the suppository. She denies any flatus since then and no more bowel movements. Exam Const: General: comfortable and no acute distress GI: Inspection: distended and incision (Dry and glue intact, no erythema or drainage) GI Palp: Yes Soft to palpation, Yes Tenderness to palpation present (GI) (Mild Tenderness across the upper abdomen), No Guarding due to palpation present (GI) and No Rebound tenderness present Auscultation: absent bowel sounds Extrem: General: no pedal edema and no calf tenderness Objective Data Vital Signs Vital Signs: Vital Signs - 24 hr 05/07/24 22:00 05/08/24 06:00 05/08/24 08:50 Temperature 97.3 F L 97.8 F Pulse Rate 96 92 Respiratory Rate 18 16 Blood Pressure 130/78 129/67 Pulse Oximetry 100 99 Oxygen Delivery Room Air 05/08/24 14:00 Temperature 96.9 F L Pulse Rate 91 Respiratory Rate 18 Blood Pressure 121/71 Pulse Oximetry 99 Oxygen Delivery Intake/Output Intake/Output: Intake & Output 05/05/24 05/06/24 05/07/24 05/08/24 23:59 23:59 23:59 23:59 Intake Total 2820 1120 2570 200 Output Total 1550 275 550 Balance 6949 758 3834 200 Meds/Results Medications: Active Medications Generic Name Dose Route Start Last Admin Trade Name Freq PRN Reason Stop Dose Admin Hydrocodone Bitart/Acetaminophen 1 tab 05/05/24 15:08 Hydrocodone/Acetaminophen (*Crx) 5-325 Mg Tablet PO Q4H PRN Pain Rated 4-6 Hydrocodone Bitart/Acetaminophen 1 tab 05/05/24 15:08 05/07/24 05:46 Hydrocodone/Acetaminophen (*Crx) 7.5-325 Mg Tablet PO 1 tab Q4H PRN Administration Pain Rated 7-10 Amlodipine Besylate 5 mg 05/05/24 14:05 05/08/24 09:55 Amlodipine Besylate 5 Mg Tablet PO Not Given DAILY TESSA Enoxaparin Sodium 40 mg 05/05/24 09:00 05/08/24 08:53 Enoxaparin 40 Mg/0.4 Ml Syringe SUB-Q 40 mg DAILY TESSA Administration Hydromorphone HCl 0.5 mg 05/02/24 18:56 05/06/24 23:45 Hydromorphone Hcl Inj (*Crx) 1 Mg/Ml Syr IV PUSH 0.5 mg Q3H PRN Administration Pain Rated 4-6 Hydromorphone HCl 1 mg 05/02/24 18:55 05/08/24 02:03 Hydromorphone Hcl Inj (*Crx) 1 Mg/Ml Syr IV PUSH 1 mg Q3H PRN Administration Pain Rated 7-10 Hydromorphone HCl 1 mg 05/05/24 15:08 05/07/24 18:05 Hydromorphone Hcl Inj (*Crx) 1 Mg/Ml Syr IV PUSH 1 mg Q2H PRN Administration Breakthrough Pain Rated 7-10 or NPO Hydromorphone HCl 0.5 mg 05/05/24 15:08 05/08/24 08:52 Hydromorphone Hcl Inj (*Crx) 1 Mg/Ml Syr IV PUSH 0.5 mg Q2H PRN Administration Breakthrough Pain Rated 4-6 or NPO Ibuprofen 800 mg in 200 mls @ 400 mls/hr 05/04/24 15:08 05/08/24 12:56 Caldolor 800 Mg/200 Ml IVPB Infused Q6H PRN Infusion Breakthrough Pain Rated 1-3 or NPO Dextrose/Sodium Chloride 1,000 mls @ 100 mls/hr 05/06/24 10:25 05/08/24 13:29 Dextrose 5% Sodium Chloride 0.45% IV CONT Not Given .Q10H TESSA Naloxone HCl 0.1 mg 05/04/24 15:08 Naloxone Hcl 0.4 Mg/Ml Vial IV PUSH Q2M PRN Opiate Reversal Ondansetron HCl 4 mg 05/02/24 10:59 05/03/24 20:16 Ondansetron Inj 4 Mg/2 Ml Vial IV PUSH 4 mg Q4H PRN Administration Nausea Pantoprazole Sodium 40 mg 05/03/24 17:01 05/08/24 08:52 Pantoprazole Sodium Iv 40 Mg Vial IV PUSH 40 mg QAM TESSA Administration Polyethylene Glycol 17 gm 05/05/24 09:00 05/08/24 09:55 Polyethylene Glycol 3350 17 Gm Powd.Pack PO Not Given QAM TESSA Venlafaxine HCl 75 mg 05/05/24 14:05 05/08/24 09:55 Venlafaxine Hcl Xr 75 Mg Cap.Er.24h PO Not Given DAILY TESSA Radiology Results: ITS Impressions Abdomen/Pelvis CT 05/02/24 09:37 IMPRESSION: 1. A couple abrupt transition points in close apposition in the deep pelvis with intervening fluid-filled but not frankly dilated small bowel suspicious for early closed loop obstruction. Dr. Nath discussed these findings with Dr. Greenwood at 10:09 AM. Small Bowel X-Ray 05/03/24 16:25 IMPRESSION: 1. Small bowel obstruction. Abdomen X-Ray 05/06/24 11:11 IMPRESSION: 1. Nasogastric tube tip in the stomach. Labs Labs: Laboratory Results - last 24 hr 05/07/24 05/08/24 18:31 06:49 WBC 4.9 RBC 3.73 L Hgb 11.5 L Hct 35.6 L MCV 95.4 MCH 30.8 MCHC 32.3 RDW 14.0 Plt Count 252 MPV 10.0 Sodium 138 Potassium 3.8 3.5 Chloride 101 Carbon Dioxide 32 H Anion Gap 5 BUN 3 L Creatinine 0.54 L Estim Creat Clear Calc 95 Estimated GFR > 60 Glucose 97 Calcium 8.7 Total Bilirubin 0.8 AST 90 H ALT 91 H Alkaline Phosphatase 133 H Total Protein 7.0 Albumin 3.4 L
[2024-05-08 16:39] LABS: Add Urine Microscopic? YES; Appearance Urine Clear (Clear); Bacteria Urine None Seen /hpf; Bilirubin Urine Negative (Negative); Blood Urine Negative (Negative); Color Urine Yellow (Yellow); Glucose Urine UA Negative (Negative); Ketones Urine 2+ mg/dL (Negative); Leukocyte Esterase Ur Trace LEU/UL (Negative); Nitrate Urine Negative (Negative); Non Pathogenic Casts 0-2; Protein Urine Negative (Negative); RBC Urine 0-2 /hpf (0-2); Squamous Epithelial Cell Urine Few /hpf (Few); WBC Urine 0-5 /hpf (0-3); pH Urine 7.5 (5.0-9.0)
--- NOTE | 2024-05-08 17:38 | PC.NURSE ---
Patient requesting to transfer to [facility]. Kathie BECKHAM and Merry Yu FILLING ROOM OPERATOR notified of request.
[2024-05-08] MEDS: ONDANSETRON INJ 4 MG/2 ML VIAL IV PUSH (19:55)
[2024-05-08] MEDS: DEXTROSE 5%/0.45% SOD CHL 1,000 ML 100 ML IV CONT ×2 (20:03)
[2024-05-08 20:15] VITALS: BP 131/61; PULSE 98; RESP 16; TEMP 36.9; O2SAT 100
[2024-05-09 04:40] VITALS: BP 118/78; PULSE 92; RESP 16; TEMP 36.6; O2SAT 100
[2024-05-09 06:48] LABS: Hematocrit 36.5 % (37.0-47.0); Mean Corpuscular HGB Conc 32.9 g/dl (32-36); Mean Corpuscular Hemoglobin 31.2 pg (26-34); Mean Corpuscular Volume 94.8 fl (80-100); Mean Platelet Volume 10.1 fl (7.4-10.4); Platelet Count Result 248 k/mm3 (150-375); Red Blood Count 3.85 M/mm3 (4.2-5.4); Red Cell Distribution Width 14.2 % (11.5-14.5); White Blood Count 5.3 K/mm3 (4.5-10.0)
[2024-05-09 07:06] LABS: Alanine Aminotransferase 173 U/L (6-35); Albumin Level 3.5 g/dL (3.5-5.1); Alkaline Phosphatase 154 U/L (38-126); Anion Gap 8 mmol/L (4-12); Aspartate Amino Transferase 146 U/L (14-36); Bilirubin,Total 0.9 mg/dL (0.2-1.3); Blood Urea Nitrogen 3 mg/dL (7-17); Carbon Dioxide 28 mmol/L (22-30); Chloride 102 mmol/L (98-107); Estimated CRCL calculation 90 ml/min; Estimated Glomerular Filt Rate > 60; Glucose 96 mg/dL (65-110); Potassium 3.2 mmol/L (3.4-5.0); Sodium 138 mmol/L (137-145)
--- NOTE | 2024-05-09 07:34 | P.PNIM_ITS ---
Progress Note: A&P Assessment and Plan (1) Postoperative paralytic ileus: Code(s): T81.89XA - Other complications of procedures, not elsewhere classified, initial encounter; K56.0 - Paralytic ileus Status: Acute Assessment and Plan: 05/06: Patient developed a postoperative ileus Distended abdomen with increased pain. No BM or flatus. NG clamp trial started per surgery 05/07: Patient is now passing flatus still no BM, given a suppository per surgery NG clamp trial per surgery 05/08: Patient had a liquid bowel movement today following a suppository and continues to pass flatus. Continues to endorse abdominal tightness and pain with hypoactive bowel sounds. NG remains on suction. Surgery plans to give another Dulcolax suppository. 05/09: Patients NG tube was accidentally dislodged overnight, bowel function returned. Tolerated a full liquid diet denying nausea/vomiting and abdominal pain. Prior to being discharged patient was to be advanced to a solid diet however she would not eat the solid food. She continued to deny any nausea or vomiting but noted that she will not eat the food and make herself sick. Continue to advance diet as tolerated. (2) Hypokalemia: Code(s): E87.6 - Hypokalemia Status: Acute Assessment and Plan: Patient continues to be hypokalemic on am labs. Per surgery patient is to maintain a K > 3.6. Given 40 meq IV x1. Mg WNL. (3) Small bowel obstruction: Code(s): K56.609 - Unspecified intestinal obstruction, unspecified as to partial versus complete obstruction Status: Deleted Assessment and Plan: Abdomen/pelvis CT: A couple abrupt transition points in close apposition in the deep pelvis with intervening fluid-filled but not frankly dilated small bowel suspicious for early closed loop obstruction. SBFT: no contrast progression after 4 hours - NG placed on 05/03, removed on 05/05 - Diet: Clear liquid diet - IV fluids 125 ml/hr - Monitor I&Os, vital signs, neuro status and patient is a fall risk - Monitor serum electrolytes and CBC - General surgery consulted to further evaluate small bowel obstruction s/p laparoscopy enterolysis and release of small bowel obstruction on 05/[address] Apollo Corado. (4) Hypertension: Code(s): I10 - Essential (primary) hypertension Status: Chronic Assessment and Plan: Chronic - blood pressures remain stable, continue to monitor Time Spent With Patient Time with patient: Greater than 35 minutes Subjective Date/time seen: 05/09/24 07:34 Interval history: 64-year-old female with hypertension ulcer, and history of laparoscopy, cholecystectomy, and hysterectomy who presented to the emergency department with complaints of abdominal pain. Patients NG tube was accidentally dislodged overnight, bowel function returned. She states that she is feeling okay and denies any nausea/vomiting or abdominal pain. She was started on a full liquid diet and continued to tolerate this well denying any nausea or vomiting. She was evaluated by surgery who noted that patient would be safest staying inpatient until tomorrow, however patient still wanted to return home despite their recommendations. Prior to being discharged patient was to be advanced to a solid diet however returned to her room and she stated that she was not going to eat the solid food. She continues to deny any nausea or vomiting but notes that she will not eat the food and make herself sick. Discussed with patient that if she did not eat the solid food she would not be able to discharge today. She stated understanding. Informed surgery that patient will remain inpatient. Review of Systems Review of Systems: All systems reviewed & are unremarkable except as noted in HPI and below Exam Narrative: AF HR 95 RR 16 SpO2 100 BP 140/80 General: female in no acute respiratory distress who is nontoxic appearing, sitting up in chair HEENT: Normocephalic. Atraumatic. Extraocular movement intact. Sclera clear and anicteric. No facial asymmetry. Chest: Lungs are clear to auscultation bilaterally. No wheezes or crackles. CV: Heart was regular rate and rhythm. S1-S2. No murmurs, gallops, or rubs. Abd: Abdomen was soft. Nontender. Distended. Hypoactive bowel sounds. Well healing incisions. Ext: No clubbing, cyanosis, or edema. 2+ DP pulses bilaterally. Neuro: Patient is alert. Speech is clear. Objective Data Vital Signs Vital Signs: Vital Signs - 24 hr 05/08/24 08:50 05/08/24 14:00 05/08/24 20:15 Temperature 96.9 F L 98.5 F Pulse Rate 91 98 Respiratory Rate 18 16 Blood Pressure 121/71 131/61 Pulse Oximetry 99 100 Oxygen Delivery Room Air 05/09/24 04:40 Temperature 97.9 F Pulse Rate 92 Respiratory Rate 16 Blood Pressure 118/78 Pulse Oximetry 100 Oxygen Delivery Intake/Output Intake/Output: Intake & Output 05/06/24 05/07/24 05/08/24 05/09/24 23:59 23:59 23:59 23:59 Intake Total 1120 2570 1920 350 Output Total 275 550 150 600 Balance 845 2020 1770 -250 Meds/Results Medications: Active Medications Generic Name Dose Route Start Last Admin Trade Name Freq PRN Reason Stop Dose Admin Hydrocodone Bitart/Acetaminophen 1 tab 05/05/24 15:08 Hydrocodone/Acetaminophen (*Crx) 5-325 Mg Tablet PO Q4H PRN Pain Rated 4-6 Hydrocodone Bitart/Acetaminophen 1 tab 05/05/24 15:08 05/07/24 05:46 Hydrocodone/Acetaminophen (*Crx) 7.5-325 Mg Tablet PO 1 tab Q4H PRN Administration Pain Rated 7-10 Amlodipine Besylate 5 mg 05/05/24 14:05 05/08/24 09:55 Amlodipine Besylate 5 Mg Tablet PO Not Given DAILY TESSA Enoxaparin Sodium 40 mg 05/05/24 09:00 05/08/24 08:53 Enoxaparin 40 Mg/0.4 Ml Syringe SUB-Q 40 mg DAILY TESSA Administration Hydromorphone HCl 0.5 mg 05/02/24 18:56 05/06/24 23:45 Hydromorphone Hcl Inj (*Crx) 1 Mg/Ml Syr IV PUSH 0.5 mg Q3H PRN Administration Pain Rated 4-6 Hydromorphone HCl 1 mg 05/02/24 18:55 05/08/24 02:03 Hydromorphone Hcl Inj (*Crx) 1 Mg/Ml Syr IV PUSH 1 mg Q3H PRN Administration Pain Rated 7-10 Hydromorphone HCl 1 mg 05/05/24 15:08 05/07/24 18:05 Hydromorphone Hcl Inj (*Crx) 1 Mg/Ml Syr IV PUSH 1 mg Q2H PRN Administration Breakthrough Pain Rated 7-10 or NPO Hydromorphone HCl 0.5 mg 05/05/24 15:08 05/08/24 08:52 Hydromorphone Hcl Inj (*Crx) 1 Mg/Ml Syr IV PUSH 0.5 mg Q2H PRN Administration Breakthrough Pain Rated 4-6 or NPO Ibuprofen 800 mg in 200 mls @ 400 mls/hr 05/04/24 15:08 05/08/24 23:47 Caldolor 800 Mg/200 Ml IVPB 400 mls/hr Q6H PRN Administration Breakthrough Pain Rated 1-3 or NPO Dextrose/Sodium Chloride 1,000 mls @ 100 mls/hr 05/06/24 10:25 05/08/24 20:03 Dextrose 5% Sodium Chloride 0.45% IV CONT 100 mls/hr .Q10H TESSA Administration Naloxone HCl 0.1 mg 05/04/24 15:08 Naloxone Hcl 0.4 Mg/Ml Vial IV PUSH Q2M PRN Opiate Reversal Ondansetron HCl 4 mg 05/02/24 10:59 05/08/24 19:55 Ondansetron Inj 4 Mg/2 Ml Vial IV PUSH 4 mg Q4H PRN Administration Nausea Pantoprazole Sodium 40 mg 05/03/24 17:01 05/08/24 08:52 Pantoprazole Sodium Iv 40 Mg Vial IV PUSH 40 mg QAM TESSA Administration Polyethylene Glycol 17 gm 05/05/24 09:00 05/08/24 09:55 Polyethylene Glycol 3350 17 Gm Powd.Pack PO Not Given QAM TESSA Venlafaxine HCl 75 mg 05/05/24 14:05 05/08/24 09:55 Venlafaxine Hcl Xr 75 Mg Cap.Er.24h PO Not Given DAILY TESSA Radiology Results: ITS Impressions Abdomen/Pelvis CT 05/02/24 09:37 IMPRESSION: 1. A couple abrupt transition points in close apposition in the deep pelvis with intervening fluid-filled but not frankly dilated small bowel suspicious for early closed loop obstruction. Dr. Nath discussed these findings with Dr. Greenwood at 10:09 AM. Small Bowel X-Ray 05/03/24 16:25 IMPRESSION: 1. Small bowel obstruction. Abdomen X-Ray 05/06/24 11:11 IMPRESSION: 1. Nasogastric tube tip in the stomach. Labs Labs: Laboratory Results - last 24 hr 05/08/24 05/08/24 05/09/24 06:49 16:17 06:19 WBC 4.9 5.3 RBC 3.73 L 3.85 L Hgb 11.5 L 12.0 Hct 35.6 L 36.5 L MCV 95.4 94.8 MCH 30.8 31.2 MCHC 32.3 32.9 RDW 14.0 14.2 Plt Count 252 248 MPV 10.0 10.1 Sodium 138 138 Potassium 3.5 3.2 L Chloride 101 102 Carbon Dioxide 32 H 28 Anion Gap 5 8 BUN 3 L 3 L Creatinine 0.54 L 0.58 L Estim Creat Clear Calc 95 90 Estimated GFR > 60 > 60 Glucose 97 96 Calcium 8.7 9.0 Total Bilirubin 0.8 0.9 AST 90 H 146 H ALT 91 H 173 H Alkaline Phosphatase 133 H 154 H Total Protein 7.0 7.0 Albumin 3.4 L 3.5 Urine Color Yellow Urine Appearance Clear Urine pH 7.5 Ur Specific [place] 1.010 Urine Protein Negative Urine Glucose (UA) Negative Urine Ketones 2+ H Ur Blood (Man) Negative Urine Nitrate Negative Urine Bilirubin Negative Urine Urobilinogen 1.0 Ur Leukocyte Esterase Trace H Urine RBC 0-2 Urine WBC 0-5 Ur Squamous Epith Cells Few Urine Bacteria None seen Urine Casts 0-2 Quality VTE Prophylaxis VTE prophylaxis: mechanical ordered
[2024-05-09 08:00] VITALS: BP 140/80; PULSE 95; RESP 16; TEMP 36.3; O2SAT 100
[2024-05-09 09:44] VITALS: BP 122/79; PULSE 106; O2SAT 99
[2024-05-09] MEDS: ENOXAPARIN 40 MG/0.4 ML SYRINGE SUB-Q (09:44)
[2024-05-09] MEDS: amLODIPine BESYLATE 5 MG TABLET PO (09:44)
[2024-05-09] MEDS: VENLAFAXINE HCL XR 75 MG CAP.ER.24H PO (09:44)
[2024-05-09] MEDS: POTASSIUM CHLORIDE INJ 40 MEQ in SODIUM CHLORIDE 0.9% IV 500 ML 130 MEQ IVPB (09:44)
[2024-05-09] MEDS: PANTOPRAZOLE SODIUM IV 40 MG VIAL IV PUSH (09:47)
[2024-05-09 10:47] VITALS: BMI 37.7
[2024-05-09 13:58] VITALS: BP 113/76; PULSE 108; RESP 16; TEMP 36.1; O2SAT 100
--- NOTE | 2024-05-09 14:03 | P.PNGS_ITS ---
Progress Note: A&P Assessment and Plan (1) Complete small bowel obstruction: Code(s): K56.601 - Complete intestinal obstruction, unspecified as to cause Status: Acute Assessment and Plan: * Bowel function returning, and NG accidently became dislodged last night. Will start full liquid diet and advance as tolerated. Patient refusing to stay in hospital another night. I discussed that typically we will advance diet and make sure she is tolerating 2 or 3 meals before discharging and tried to convince patient that staying until tomorrow would be safest. Patient still wanting to go home today despite my recommendations. I discussed that she could go home if tolerating full liquids for lunch and regular diet for dinner. She would still have to watch for signs of bloating, nausea, or increased abdominal pain. Those would be indications to return to the ED. Also discussed continuing MiraLax and having another laxative on hand as needed for constipation. Continue lifting restriction for 2 weeks. Follow up in office in 2 weeks. (2) Postoperative paralytic ileus: Code(s): T81.89XA - Other complications of procedures, not elsewhere classified, initial encounter; K56.0 - Paralytic ileus Status: Acute Subjective Subjective Date/Time Seen: 05/09/24 14:03 Interval history: Patient has had multiple BM's. Passing flatus. No nausea or bloating. No abdominal pain. Exam GI: Inspection: non-distended and incision (intact with glue) GI Palp: Yes Soft to palpation, No Tenderness to palpation present (GI) and No Guarding due to palpation present (GI) Percussion: Yes normal to percussion Auscultation: normal bowel sounds Objective Data Vital Signs Vital Signs: Vital Signs - 24 hr 05/08/24 20:15 05/09/24 04:40 05/09/24 08:00 Temperature 98.5 F 97.9 F 97.4 F L Pulse Rate 98 92 95 Respiratory Rate 16 16 16 Blood Pressure 131/61 118/78 140/80 Pulse Oximetry 100 100 100 Oxygen Delivery 05/09/24 09:44 05/09/24 09:44 05/09/24 13:58 Temperature 96.9 F L Pulse Rate 106 H 108 H Respiratory Rate 16 Blood Pressure 122/79 113/76 Pulse Oximetry 99 100 Oxygen Delivery Room Air Intake/Output Intake/Output: Intake & Output 05/06/24 05/07/24 05/08/24 05/09/24 23:59 23:59 23:59 23:59 Intake Total 1120 2570 1920 590 Output Total 275 550 150 600 Balance 845 2020 1769 Meds/Results Medications: Active Medications Generic Name Dose Route Start Last Admin Trade Name Freq PRN Reason Stop Dose Admin Hydrocodone Bitart/Acetaminophen 1 tab 05/05/24 15:08 Hydrocodone/Acetaminophen (*Crx) 5-325 Mg Tablet PO Q4H PRN Pain Rated 4-6 Hydrocodone Bitart/Acetaminophen 1 tab 05/05/24 15:08 05/07/24 05:46 Hydrocodone/Acetaminophen (*Crx) 7.5-325 Mg Tablet PO 1 tab Q4H PRN Administration Pain Rated 7-10 Amlodipine Besylate 5 mg 05/05/24 14:05 05/09/24 09:44 Amlodipine Besylate 5 Mg Tablet PO 5 mg DAILY TESSA Administration Enoxaparin Sodium 40 mg 05/05/24 09:00 05/09/24 09:44 Enoxaparin 40 Mg/0.4 Ml Syringe SUB-Q 40 mg DAILY TESSA Administration Hydromorphone HCl 0.5 mg 05/02/24 18:56 05/06/24 23:45 Hydromorphone Hcl Inj (*Crx) 1 Mg/Ml Syr IV PUSH 0.5 mg Q3H PRN Administration Pain Rated 4-6 Hydromorphone HCl 1 mg 05/02/24 18:55 05/08/24 02:03 Hydromorphone Hcl Inj (*Crx) 1 Mg/Ml Syr IV PUSH 1 mg Q3H PRN Administration Pain Rated 7-10 Hydromorphone HCl 1 mg 05/05/24 15:08 05/07/24 18:05 Hydromorphone Hcl Inj (*Crx) 1 Mg/Ml Syr IV PUSH 1 mg Q2H PRN Administration Breakthrough Pain Rated 7-10 or NPO Hydromorphone HCl 0.5 mg 05/05/24 15:08 05/08/24 08:52 Hydromorphone Hcl Inj (*Crx) 1 Mg/Ml Syr IV PUSH 0.5 mg Q2H PRN Administration Breakthrough Pain Rated 4-6 or NPO Ibuprofen 800 mg in 200 mls @ 400 mls/hr 05/04/24 15:08 05/08/24 23:47 Caldolor 800 Mg/200 Ml IVPB 400 mls/hr Q6H PRN Administration Breakthrough Pain Rated 1-3 or NPO Naloxone HCl 0.1 mg 05/04/24 15:08 Naloxone Hcl 0.4 Mg/Ml Vial IV PUSH Q2M PRN Opiate Reversal Ondansetron HCl 4 mg 05/02/24 10:59 05/08/24 19:55 Ondansetron Inj 4 Mg/2 Ml Vial IV PUSH 4 mg Q4H PRN Administration Nausea Pantoprazole Sodium 40 mg 05/03/24 17:01 05/09/24 09:47 Pantoprazole Sodium Iv 40 Mg Vial IV PUSH 40 mg QAM TESSA Administration Polyethylene Glycol 17 gm 05/05/24 09:00 05/09/24 12:34 Polyethylene Glycol 3350 17 Gm Powd.Pack PO Not Given QAM TESSA Venlafaxine HCl 75 mg 05/05/24 14:05 05/09/24 09:44 Venlafaxine Hcl Xr 75 Mg Cap.Er.24h PO 75 mg DAILY TESSA Administration Radiology Results: ITS Impressions Abdomen/Pelvis CT 05/02/24 09:37 IMPRESSION: 1. A couple abrupt transition points in close apposition in the deep pelvis with intervening fluid-filled but not frankly dilated small bowel suspicious for early closed loop obstruction. Dr. Nath discussed these findings with Dr. Greenwood at 10:09 AM. Small Bowel X-Ray 05/03/24 16:25 IMPRESSION: 1. Small bowel obstruction. Abdomen X-Ray 05/06/24 11:11 IMPRESSION: 1. Nasogastric tube tip in the stomach. Labs Labs: Laboratory Results - last 24 hr 05/08/24 05/09/24 16:17 06:19 WBC 5.3 RBC 3.85 L Hgb 12.0 Hct 36.5 L MCV 94.8 MCH 31.2 MCHC 32.9 RDW 14.2 Plt Count 248 MPV 10.1 Sodium 138 Potassium 3.2 L Chloride 102 Carbon Dioxide 28 Anion Gap 8 BUN 3 L Creatinine 0.58 L Estim Creat Clear Calc 90 Estimated GFR > 60 Glucose 96 Calcium 9.0 Total Bilirubin 0.9 AST 146 H ALT 173 H Alkaline Phosphatase 154 H Total Protein 7.0 Albumin 3.5 Urine Color Yellow Urine Appearance Clear Urine pH 7.5 Ur Specific [place] 1.010 Urine Protein Negative Urine Glucose (UA) Negative Urine Ketones 2+ H Ur Blood (Man) Negative Urine Nitrate Negative Urine Bilirubin Negative Urine Urobilinogen 1.0 Ur Leukocyte Esterase Trace H Urine RBC 0-2 Urine WBC 0-5 Ur Squamous Epith Cells Few Urine Bacteria None seen Urine Casts 0-2
[2024-05-09] MEDS: IBUPROFEN IV 800 MG/200 ML 800 MG/200 ML BAG 400 MG IVPB (17:33)
[2024-05-09] MEDS: HYDROmorphone HCL INJ (*CRX) 1 MG/ML SYR IV PUSH (18:40)
[2024-05-09 22:00] VITALS: BP 127/79; PULSE 110; RESP 20; TEMP 36.3; O2SAT 99
[2024-05-10 05:10] VITALS: BP 154/89; PULSE 102; RESP 20; TEMP 36.7; O2SAT 99
[2024-05-10 07:37] LABS: Hematocrit 37.6 % (37.0-47.0); Mean Corpuscular HGB Conc 31.9 g/dl (32-36); Mean Corpuscular Hemoglobin 30.9 pg (26-34); Mean Corpuscular Volume 96.9 fl (80-100); Mean Platelet Volume 10.2 fl (7.4-10.4); Platelet Count Result 238 k/mm3 (150-375); Red Blood Count 3.88 M/mm3 (4.2-5.4); Red Cell Distribution Width 14.5 % (11.5-14.5); White Blood Count 4.7 K/mm3 (4.5-10.0)
[2024-05-10 07:47] LABS: Alanine Aminotransferase 220 U/L (6-35); Albumin Level 3.6 g/dL (3.5-5.1); Alkaline Phosphatase 146 U/L (38-126); Anion Gap 10 mmol/L (4-12); Aspartate Amino Transferase 166 U/L (14-36); Bilirubin,Total 0.7 mg/dL (0.2-1.3); Blood Urea Nitrogen 5 mg/dL (7-17); Calcium 9.3 mg/dL (8.4-10.2); Carbon Dioxide 25 mmol/L (22-30); Chloride 106 mmol/L (98-107); Estimated CRCL calculation 85 ml/min; Estimated Glomerular Filt Rate > 60; Glucose 85 mg/dL (65-110); Potassium 3.7 mmol/L (3.4-5.0); Sodium 141 mmol/L (137-145)
[2024-05-10] MEDS: polyethylene glycoL 3350 17 GM POWD.PACK PO (08:44)
[2024-05-10] MEDS: VENLAFAXINE HCL XR 75 MG CAP.ER.24H PO (08:44)
[2024-05-10] MEDS: amLODIPine BESYLATE 5 MG TABLET PO (08:44)
[2024-05-10] MEDS: PANTOPRAZOLE SODIUM IV 40 MG VIAL IV PUSH (08:47)
[2024-05-10] MEDS: ENOXAPARIN 40 MG/0.4 ML SYRINGE SUB-Q (08:48)
[2024-05-10] MEDS: HYDROmorphone HCL INJ (*CRX) 1 MG/ML SYR IV PUSH ×2 (10:05→18:00)
--- NOTE | 2024-05-10 13:31 | PM.IMPN ---
Progress Note: A&P Assessment and Plan (1) Postoperative paralytic ileus: Code(s): T81.89XA - Other complications of procedures, not elsewhere classified, initial encounter; K56.0 - Paralytic ileus Status: Acute Assessment and Plan: 05/06: Patient developed a postoperative ileus Distended abdomen with increased pain. No BM or flatus. NG clamp trial started per surgery 05/07: Patient is now passing flatus still no BM, given a suppository per surgery NG clamp trial per surgery 05/08: Patient had a liquid bowel movement today following a suppository and continues to pass flatus. Continues to endorse abdominal tightness and pain with hypoactive bowel sounds. NG remains on suction. Surgery plans to give another Dulcolax suppository. 05/09: Patients NG tube was accidentally dislodged overnight, bowel function returned. Tolerated a full liquid diet denying nausea/vomiting and abdominal pain. Prior to being discharged patient was to be advanced to a solid diet however she would not eat the solid food. She continued to deny any nausea or vomiting but noted that she will not eat the food and make herself sick. Continue to advance diet as tolerated. 05/10 no NG tube. not eating solids yet as nausea but nausea. had bm. continue to follow surgery recommendations for advancing diet (2) Hypokalemia: Code(s): E87.6 - Hypokalemia Status: Acute Assessment and Plan: Patient continues to be hypokalemic on am labs. Per surgery patient is to maintain a K > 3.6. Given 40 meq IV x1. Mg WNL. (3) Small bowel obstruction: Code(s): K56.609 - Unspecified intestinal obstruction, unspecified as to partial versus complete obstruction Status: Deleted Assessment and Plan: Abdomen/pelvis CT: A couple abrupt transition points in close apposition in the deep pelvis with intervening fluid-filled but not frankly dilated small bowel suspicious for early closed loop obstruction. SBFT: no contrast progression after 4 hours - NG placed on 05/03, removed on 05/05 - Diet: Clear liquid diet - IV fluids 125 ml/hr - Monitor I&Os, vital signs, neuro status and patient is a fall risk - Monitor serum electrolytes and CBC - General surgery consulted to further evaluate small bowel obstruction s/p laparoscopy enterolysis and release of small bowel obstruction on 05/[address] Bustillos Resolved. (4) Hypertension: Code(s): I10 - Essential (primary) hypertension Status: Chronic Assessment and Plan: Chronic - blood pressures remain stable, continue to monitor Time Spent With Patient Time with patient: 25 - 35 minutes Subjective Date/time seen: 05/10/24 13:31 Interval history: 64-year-old female with hypertension ulcer, and history of laparoscopy, cholecystectomy, and hysterectomy who presented to the emergency department with complaints of abdominal pain. Patients NG tube was accidentally dislodged overnight, bowel function returned. She states that she is feeling okay and denies any nausea/vomiting or abdominal pain. She was started on a full liquid diet and continued to tolerate this well denying any nausea or vomiting. She was evaluated by surgery who noted that patient would be safest staying inpatient until tomorrow, however patient still wanted to return home despite their recommendations. Prior to being discharged patient was to be advanced to a solid diet however returned to her room and she stated that she was not going to eat the solid food. She continues to deny any nausea or vomiting but notes that she will not eat the food and make herself sick. Discussed with patient that if she did not eat the solid food she would not be able to discharge today. She stated understanding. Informed surgery that patient will remain inpatient. Pt is seen and examined. Surgery is following - advancing her diet. She has had BM yesterday, pasisng gas. NO vomiting Review of Systems Constitutional: Constitutional: Denies chills Cardiovascular: Cardiovascular: Denies chest pain Respiratory: Respiratory: Denies chest congestion Gastrointestinal: Gastrointestinal: Reports bloating Musculoskeletal: Musculoskeletal: Denies back pain Exam Narrative: General: female in no acute respiratory distress who is nontoxic appearing HEENT: Normocephalic. Atraumatic. Extraocular movement intact. Sclera clear and anicteric. No facial asymmetry. Chest: Lungs are clear to auscultation bilaterally. No wheezes or crackles. CV: Heart was regular rate and rhythm. S1-S2. No murmurs, gallops, or rubs. Abd: Abdomen was soft. Nontender. Distended. Hypoactive bowel sounds. Well healing incisions. Ext: No clubbing, cyanosis, or edema. 2+ DP pulses bilaterally. Neuro: Patient is alert. Speech is clear. Const: General: comfortable Objective Data Vital Signs Vital Signs: Vital Signs - 24 hr 05/09/24 13:58 05/09/24 22:00 05/10/24 05:10 Temperature 96.9 F L 97.4 F L 98.1 F Pulse Rate 108 H 110 H 102 H Respiratory Rate 16 20 20 Blood Pressure 113/76 127/79 154/89 H Pulse Oximetry 100 99 99 Oxygen Delivery 05/10/24 08:45 Temperature Pulse Rate Respiratory Rate Blood Pressure Pulse Oximetry Oxygen Delivery Room Air Intake/Output Intake/Output: Intake & Output 05/07/24 05/08/24 05/09/24 05/10/24 23:59 23:59 23:59 23:59 Intake Total 2570 1920 990 410 Output Total 550 972 131 8362 Balance 2020 1770 390 -590 Meds/Results Medications: Active Medications Generic Name Dose Route Start Last Admin Trade Name Freq PRN Reason Stop Dose Admin Hydrocodone Bitart/Acetaminophen 1 tab 05/05/24 15:08 Hydrocodone/Acetaminophen (*Crx) 5-325 Mg Tablet PO Q4H PRN Pain Rated 4-6 Hydrocodone Bitart/Acetaminophen 1 tab 05/05/24 15:08 05/07/24 05:46 Hydrocodone/Acetaminophen (*Crx) 7.5-325 Mg Tablet PO 1 tab Q4H PRN Administration Pain Rated 7-10 Amlodipine Besylate 5 mg 05/05/24 14:05 05/10/24 08:44 Amlodipine Besylate 5 Mg Tablet PO 5 mg DAILY TESSA Administration Enoxaparin Sodium 40 mg 05/05/24 09:00 05/10/24 08:48 Enoxaparin 40 Mg/0.4 Ml Syringe SUB-Q 40 mg DAILY TESSA Administration Hydromorphone HCl 0.5 mg 05/02/24 18:56 05/06/24 23:45 Hydromorphone Hcl Inj (*Crx) 1 Mg/Ml Syr IV PUSH 0.5 mg Q3H PRN Administration Pain Rated 4-6 Hydromorphone HCl 1 mg 05/02/24 18:55 05/10/24 10:05 Hydromorphone Hcl Inj (*Crx) 1 Mg/Ml Syr IV PUSH 1 mg Q3H PRN Administration Pain Rated 7-10 Hydromorphone HCl 1 mg 05/05/24 15:08 05/07/24 18:05 Hydromorphone Hcl Inj (*Crx) 1 Mg/Ml Syr IV PUSH 1 mg Q2H PRN Administration Breakthrough Pain Rated 7-10 or NPO Hydromorphone HCl 0.5 mg 05/05/24 15:08 05/08/24 08:52 Hydromorphone Hcl Inj (*Crx) 1 Mg/Ml Syr IV PUSH 0.5 mg Q2H PRN Administration Breakthrough Pain Rated 4-6 or NPO Ibuprofen 800 mg in 200 mls @ 400 mls/hr 05/04/24 15:08 05/09/24 18:03 Caldolor 800 Mg/200 Ml IVPB Infused Q6H PRN Infusion Breakthrough Pain Rated 1-3 or NPO Naloxone HCl 0.1 mg 05/04/24 15:08 Naloxone Hcl 0.4 Mg/Ml Vial IV PUSH Q2M PRN Opiate Reversal Ondansetron HCl 4 mg 05/02/24 10:59 05/08/24 19:55 Ondansetron Inj 4 Mg/2 Ml Vial IV PUSH 4 mg Q4H PRN Administration Nausea Pantoprazole Sodium 40 mg 05/03/24 17:01 05/10/24 08:47 Pantoprazole Sodium Iv 40 Mg Vial IV PUSH 40 mg QAM TESSA Administration Polyethylene Glycol 17 gm 05/05/24 09:00 05/10/24 08:44 Polyethylene Glycol 3350 17 Gm Powd.Pack PO 17 gm QAM TESSA Administration Venlafaxine HCl 75 mg 05/05/24 14:05 05/10/24 08:44 Venlafaxine Hcl Xr 75 Mg Cap.Er.24h PO 75 mg DAILY TESSA Administration Radiology Results: ITS Impressions Abdomen/Pelvis CT 05/02/24 09:37 IMPRESSION: 1. A couple abrupt transition points in close apposition in the deep pelvis with intervening fluid-filled but not frankly dilated small bowel suspicious for early closed loop obstruction. Dr. Nath discussed these findings with Dr. Greenwood at 10:09 AM. Small Bowel X-Ray 05/03/24 16:25 IMPRESSION: 1. Small bowel obstruction. Abdomen X-Ray 05/10/24 11:14 IMPRESSION: 1. Persistently dilated small bowel, consistent with small bowel obstruction. Labs Labs: Laboratory Results - last 24 hr 05/10/24 06:39 WBC 4.7 RBC 3.88 L Hgb 12.0 Hct 37.6 MCV 96.9 MCH 30.9 MCHC 31.9 L RDW 14.5 Plt Count 238 MPV 10.2 Sodium 141 Potassium 3.7 Chloride 106 Carbon Dioxide 25 Anion Gap 10 BUN 5 L Creatinine 0.60 L Estim Creat Clear Calc 85 Estimated GFR > 60 Glucose 85 Calcium 9.3 Total Bilirubin 0.7 AST 166 H ALT 220 H Alkaline Phosphatase 146 H Total Protein 7.0 Albumin 3.6 Quality VTE Prophylaxis VTE prophylaxis: mechanical ordered
[2024-05-10 14:00] VITALS: BP 124/65; PULSE 103; RESP 20; TEMP 36.3; O2SAT 99
[2024-05-10] MEDS: METOCLOPRAMIDE HCL 10 MG TABLET PO ×3 (14:49→20:03)
[2024-05-10] MEDS: MAGNESIUM HYDROXIDE SUSP 30 ML UDC PO (14:49)
--- NOTE | 2024-05-10 15:51 | P.PNGS_ITS ---
Progress Note: A&P Assessment and Plan (1) Complete small bowel obstruction: Code(s): K56.601 - Complete intestinal obstruction, unspecified as to cause Status: Acute Assessment and Plan: * KUB this AM shows persistent dilated bowel but contrast in colon. Couldn't get SBFT because patient had eaten lunch. Will stimulate bowels more. Will make NPO after midnight in case SBFT or repeat CT needs to be done tomorrow. (2) Postoperative paralytic ileus: Code(s): T81.89XA - Other complications of procedures, not elsewhere classified, initial encounter; K56.0 - Paralytic ileus Status: Acute Subjective Subjective Date/Time Seen: 05/10/24 15:51 Interval history: Patient still having intermittent abdominal cramping and requiring IV pain meds. Having BM's. No vomiting, felt slightly nauseated once but it passed on its own. Up ambulating. Had toast for lunch. Exam GI: Inspection: distended and incision (intact with glue) GI Palp: Yes Soft to palpation, No Tenderness to palpation present (GI) and No Guarding due to palpation present (GI) Percussion: Yes normal to percussion Auscultation: normal bowel sounds Objective Data Vital Signs Vital Signs: Vital Signs - 24 hr 05/09/24 22:00 05/10/24 05:10 05/10/24 08:45 Temperature 97.4 F L 98.1 F Pulse Rate 110 H 102 H Respiratory Rate 20 20 Blood Pressure 127/79 154/89 H Pulse Oximetry 99 99 Oxygen Delivery Room Air 05/10/24 14:00 Temperature 97.4 F L Pulse Rate 103 H Respiratory Rate 20 Blood Pressure 124/65 Pulse Oximetry 99 Oxygen Delivery Intake/Output Intake/Output: Intake & Output 05/07/24 05/08/24 05/09/24 05/10/24 23:59 23:59 23:59 23:59 Intake Total 2570 1920 990 650 Output Total 550 936 340 4261 Balance 2019 1770 390 -350 Meds/Results Medications: Active Medications Generic Name Dose Route Start Last Admin Trade Name Freq PRN Reason Stop Dose Admin Hydrocodone Bitart/Acetaminophen 1 tab 05/05/24 15:08 Hydrocodone/Acetaminophen (*Crx) 5-325 Mg Tablet PO Q4H PRN Pain Rated 4-6 Hydrocodone Bitart/Acetaminophen 1 tab 05/05/24 15:08 05/07/24 05:46 Hydrocodone/Acetaminophen (*Crx) 7.5-325 Mg Tablet PO 1 tab Q4H PRN Administration Pain Rated 7-10 Amlodipine Besylate 5 mg 05/05/24 14:05 05/10/24 08:44 Amlodipine Besylate 5 Mg Tablet PO 5 mg DAILY TESSA Administration Enoxaparin Sodium 40 mg 05/05/24 09:00 05/10/24 08:48 Enoxaparin 40 Mg/0.4 Ml Syringe SUB-Q 40 mg DAILY TESSA Administration Hydromorphone HCl 0.5 mg 05/02/24 18:56 05/06/24 23:45 Hydromorphone Hcl Inj (*Crx) 1 Mg/Ml Syr IV PUSH 0.5 mg Q3H PRN Administration Pain Rated 4-6 Hydromorphone HCl 1 mg 05/02/24 18:55 05/10/24 10:05 Hydromorphone Hcl Inj (*Crx) 1 Mg/Ml Syr IV PUSH 1 mg Q3H PRN Administration Pain Rated 7-10 Hydromorphone HCl 1 mg 05/05/24 15:08 05/07/24 18:05 Hydromorphone Hcl Inj (*Crx) 1 Mg/Ml Syr IV PUSH 1 mg Q2H PRN Administration Breakthrough Pain Rated 7-10 or NPO Hydromorphone HCl 0.5 mg 05/05/24 15:08 05/08/24 08:52 Hydromorphone Hcl Inj (*Crx) 1 Mg/Ml Syr IV PUSH 0.5 mg Q2H PRN Administration Breakthrough Pain Rated 4-6 or NPO Ibuprofen 800 mg in 200 mls @ 400 mls/hr 05/04/24 15:08 05/09/24 18:03 Caldolor 800 Mg/200 Ml IVPB Infused Q6H PRN Infusion Breakthrough Pain Rated 1-3 or NPO Metoclopramide HCl 10 mg 05/10/24 16:30 Metoclopramide Hcl 10 Mg Tablet PO ACHS TESSA Naloxone HCl 0.1 mg 05/04/24 15:08 Naloxone Hcl 0.4 Mg/Ml Vial IV PUSH Q2M PRN Opiate Reversal Ondansetron HCl 4 mg 05/02/24 10:59 05/08/24 19:55 Ondansetron Inj 4 Mg/2 Ml Vial IV PUSH 4 mg Q4H PRN Administration Nausea Pantoprazole Sodium 40 mg 05/03/24 17:01 05/10/24 08:47 Pantoprazole Sodium Iv 40 Mg Vial IV PUSH 40 mg QAM TESSA Administration Polyethylene Glycol 17 gm 05/05/24 09:00 05/10/24 08:44 Polyethylene Glycol 3350 17 Gm Powd.Pack PO 17 gm QAM TESSA Administration Venlafaxine HCl 75 mg 05/05/24 14:05 05/10/24 08:44 Venlafaxine Hcl Xr 75 Mg Cap.Er.24h PO 75 mg DAILY TESSA Administration Radiology Results: ITS Impressions Abdomen/Pelvis CT 05/02/24 09:37 IMPRESSION: 1. A couple abrupt transition points in close apposition in the deep pelvis with intervening fluid-filled but not frankly dilated small bowel suspicious for early closed loop obstruction. Dr. Nath discussed these findings with Dr. Greenwood at 10:09 AM. Small Bowel X-Ray 05/03/24 16:25 IMPRESSION: 1. Small bowel obstruction. Abdomen X-Ray 05/10/24 11:14 IMPRESSION: 1. Persistently dilated small bowel, consistent with small bowel obstruction. Labs Labs: Laboratory Results - last 24 hr 05/10/24 06:39 WBC 4.7 RBC 3.88 L Hgb 12.0 Hct 37.6 MCV 96.9 MCH 30.9 MCHC 31.9 L RDW 14.5 Plt Count 238 MPV 10.2 Sodium 141 Potassium 3.7 Chloride 106 Carbon Dioxide 25 Anion Gap 10 BUN 5 L Creatinine 0.60 L Estim Creat Clear Calc 85 Estimated GFR > 60 Glucose 85 Calcium 9.3 Total Bilirubin 0.7 AST 166 H ALT 220 H Alkaline Phosphatase 146 H Total Protein 7.0 Albumin 3.6
[2024-05-10] MEDS: HYDROcodone/acetaminophen (*CRX) 7.5-325 MG TABLET 1 TAB PO (20:02)
[2024-05-10 21:13] VITALS: BP 141/85; PULSE 104; RESP 16; TEMP 36.2; O2SAT 97
[2024-05-11 05:15] VITALS: BP 136/88; PULSE 102; RESP 18; TEMP 36.2; O2SAT 99
[2024-05-11 05:47] LABS: Hematocrit 38.5 % (37.0-47.0); Hemoglobin 12.4 g/dL (12.0-15.0); Mean Corpuscular HGB Conc 32.2 g/dl (32-36); Mean Corpuscular Hemoglobin 31.1 pg (26-34); Mean Corpuscular Volume 96.5 fl (80-100); Mean Platelet Volume 10.3 fl (7.4-10.4); Platelet Count Result 272 k/mm3 (150-375); Red Blood Count 3.99 M/mm3 (4.2-5.4); Red Cell Distribution Width 14.6 % (11.5-14.5); White Blood Count 5.1 K/mm3 (4.5-10.0)
[2024-05-11 05:55] LABS: Alanine Aminotransferase 185 U/L (6-35); Albumin Level 3.7 g/dL (3.5-5.1); Alkaline Phosphatase 154 U/L (38-126); Anion Gap 8 mmol/L (4-12); Aspartate Amino Transferase 101 U/L (14-36); Bilirubin,Total 0.6 mg/dL (0.2-1.3); Blood Urea Nitrogen 7 mg/dL (7-17); Calcium 9.3 mg/dL (8.4-10.2); Carbon Dioxide 29 mmol/L (22-30); Chloride 102 mmol/L (98-107); Estimated CRCL calculation 77 ml/min; Estimated Glomerular Filt Rate > 60; Glucose 107 mg/dL (65-110); Potassium 3.6 mmol/L (3.4-5.0); Sodium 139 mmol/L (137-145)
[2024-05-11 08:00] VITALS: O2SAT 99
[2024-05-11] MEDS: ENOXAPARIN 40 MG/0.4 ML SYRINGE SUB-Q (09:16)
[2024-05-11] MEDS: PANTOPRAZOLE SODIUM IV 40 MG VIAL IV PUSH (09:16)
--- NOTE | 2024-05-11 10:56 | PC.NURSE ---
Pt off floor for CT
--- NOTE | 2024-05-11 11:20 | PC.NURSE ---
back on floor
[2024-05-11] MEDS: METOCLOPRAMIDE HCL 10 MG TABLET PO ×3 (12:36→20:33)
[2024-05-11] MEDS: amLODIPine BESYLATE 5 MG TABLET PO (12:37)
[2024-05-11] MEDS: polyethylene glycoL 3350 17 GM POWD.PACK PO (12:37)
[2024-05-11] MEDS: VENLAFAXINE HCL XR 75 MG CAP.ER.24H PO (12:37)
--- NOTE | 2024-05-11 12:53 | P.PNGS_ITS ---
Progress Note: A&P Assessment and Plan (1) Complete small bowel obstruction: Code(s): K56.601 - Complete intestinal obstruction, unspecified as to cause Status: Acute Assessment and Plan: * CT this AM shows ileus but no signs of persistent obstruction. Will continue regular diet. OK to discharge once tolerating this for a couple meals. Encouraged frequent ambulation to help with bowel function returning. On Reglan and MiraLax. (2) Postoperative paralytic ileus: Code(s): T81.89XA - Other complications of procedures, not elsewhere classified, initial encounter; K56.0 - Paralytic ileus Status: Acute Subjective Subjective Date/Time Seen: 05/11/24 12:53 Interval history: Mild LLQ pain. Still feeling a little bloated. Passing flatus. No nausea/vomiting. Exam GI: Other: Mildly distended. Mild LLQ TTP, no guarding. Bowel sounds present. Objective Data Vital Signs Vital Signs: Vital Signs - 24 hr 05/10/24 14:00 05/10/24 20:00 05/10/24 21:13 Temperature 97.4 F L 97.2 F L Pulse Rate 103 H 104 H Respiratory Rate 20 16 Blood Pressure 124/65 141/85 H Pulse Oximetry 99 97 Oxygen Delivery Room Air 05/11/24 05:15 Temperature 97.1 F L Pulse Rate 102 H Respiratory Rate 18 Blood Pressure 136/88 Pulse Oximetry 99 Oxygen Delivery Intake/Output Intake/Output: Intake & Output 05/08/24 05/09/24 05/10/24 05/11/24 23:59 23:59 23:59 23:59 Intake Total 1920 990 770 0 Output Total 899 763 5318 250 Balance 1770 390 -480 -250 Meds/Results Medications: Active Medications Generic Name Dose Route Start Last Admin Trade Name Freq PRN Reason Stop Dose Admin Hydrocodone Bitart/Acetaminophen 1 tab 05/05/24 15:08 Hydrocodone/Acetaminophen (*Crx) 5-325 Mg Tablet PO Q4H PRN Pain Rated 4-6 Hydrocodone Bitart/Acetaminophen 1 tab 05/05/24 15:08 05/10/24 20:02 Hydrocodone/Acetaminophen (*Crx) 7.5-325 Mg Tablet PO 1 tab Q4H PRN Administration Pain Rated 7-10 Amlodipine Besylate 5 mg 05/05/24 14:05 05/11/24 12:37 Amlodipine Besylate 5 Mg Tablet PO 5 mg DAILY TESSA Administration Enoxaparin Sodium 40 mg 05/05/24 09:00 05/11/24 09:16 Enoxaparin 40 Mg/0.4 Ml Syringe SUB-Q 40 mg DAILY TESSA Administration Hydromorphone HCl 0.5 mg 05/02/24 18:56 05/06/24 23:45 Hydromorphone Hcl Inj (*Crx) 1 Mg/Ml Syr IV PUSH 0.5 mg Q3H PRN Administration Pain Rated 4-6 Hydromorphone HCl 1 mg 05/02/24 18:55 05/10/24 18:00 Hydromorphone Hcl Inj (*Crx) 1 Mg/Ml Syr IV PUSH 1 mg Q3H PRN Administration Pain Rated 7-10 Hydromorphone HCl 1 mg 05/05/24 15:08 05/07/24 18:05 Hydromorphone Hcl Inj (*Crx) 1 Mg/Ml Syr IV PUSH 1 mg Q2H PRN Administration Breakthrough Pain Rated 7-10 or NPO Hydromorphone HCl 0.5 mg 05/05/24 15:08 05/08/24 08:52 Hydromorphone Hcl Inj (*Crx) 1 Mg/Ml Syr IV PUSH 0.5 mg Q2H PRN Administration Breakthrough Pain Rated 4-6 or NPO Ibuprofen 800 mg in 200 mls @ 400 mls/hr 05/04/24 15:08 05/09/24 18:03 Caldolor 800 Mg/200 Ml IVPB Infused Q6H PRN Infusion Breakthrough Pain Rated 1-3 or NPO Metoclopramide HCl 10 mg 05/10/24 16:30 05/11/24 12:36 Metoclopramide Hcl 10 Mg Tablet PO 10 mg ACHS TESSA Administration Naloxone HCl 0.1 mg 05/04/24 15:08 Naloxone Hcl 0.4 Mg/Ml Vial IV PUSH Q2M PRN Opiate Reversal Ondansetron HCl 4 mg 05/02/24 10:59 05/08/24 19:55 Ondansetron Inj 4 Mg/2 Ml Vial IV PUSH 4 mg Q4H PRN Administration Nausea Pantoprazole Sodium 40 mg 05/03/24 17:01 05/11/24 09:16 Pantoprazole Sodium Iv 40 Mg Vial IV PUSH 40 mg QAM TESSA Administration Polyethylene Glycol 17 gm 05/05/24 09:00 05/11/24 12:37 Polyethylene Glycol 3350 17 Gm Powd.Pack PO 17 gm QAM TESSA Administration Venlafaxine HCl 75 mg 05/05/24 14:05 05/11/24 12:37 Venlafaxine Hcl Xr 75 Mg Cap.Er.24h PO 75 mg DAILY TESSA Administration Radiology Results: ITS Impressions Small Bowel X-Ray 05/03/24 16:25 IMPRESSION: 1. Small bowel obstruction. Abdomen X-Ray 05/10/24 11:14 IMPRESSION: 1. Persistently dilated small bowel, consistent with small bowel obstruction. Abdomen/Pelvis CT 05/11/24 11:14 IMPRESSION: 1. Dilated small bowel, likely adynamic ileus. 2. Small volume of pelvic ascites. Labs Labs: Laboratory Results - last 24 hr 05/11/24 05:16 WBC 5.1 RBC 3.99 L Hgb 12.4 Hct 38.5 MCV 96.5 MCH 31.1 MCHC 32.2 RDW 14.6 H Plt Count 272 MPV 10.3 Sodium 139 Potassium 3.6 Chloride 102 Carbon Dioxide 29 Anion Gap 8 BUN 7 Creatinine 0.68 L Estim Creat Clear Calc 77 Estimated GFR > 60 Glucose 107 Calcium 9.3 Total Bilirubin 0.6 AST 101 H ALT 185 H Alkaline Phosphatase 154 H Total Protein 7.0 Albumin 3.7
[2024-05-11 14:00] VITALS: BP 127/74; PULSE 107; RESP 18; TEMP 36.3; O2SAT 97
--- NOTE | 2024-05-11 15:24 | P.PNIM_ITS ---
Progress Note: A&P Assessment and Plan (1) Postoperative paralytic ileus: Code(s): T81.89XA - Other complications of procedures, not elsewhere classified, initial encounter; K56.0 - Paralytic ileus Status: Acute Assessment and Plan: 05/06: Patient developed a postoperative ileus Distended abdomen with increased pain. No BM or flatus. NG clamp trial started per surgery 05/07: Patient is now passing flatus still no BM, given a suppository per surgery NG clamp trial per surgery 05/08: Patient had a liquid bowel movement today following a suppository and continues to pass flatus. Continues to endorse abdominal tightness and pain with hypoactive bowel sounds. NG remains on suction. Surgery plans to give another Dulcolax suppository. 05/09: Patients NG tube was accidentally dislodged overnight, bowel function returned. Tolerated a full liquid diet denying nausea/vomiting and abdominal pain. Prior to being discharged patient was to be advanced to a solid diet however she would not eat the solid food. She continued to deny any nausea or vomiting but noted that she will not eat the food and make herself sick. Continue to advance diet as tolerated. 05/10 no NG tube. not eating solids yet as nausea but nausea. had bm. continue to follow surgery recommendations for advancing diet 05/11- CT this AM shows ileus with no signs of persistent obstruction. OK to continue regular diet per surgery OK to discharge once tolerating this for a couple meals-anticipate discharge tomorrow. Encouraged frequent ambulation continue reglan and MiraLax. (2) Hypokalemia: Code(s): E87.6 - Hypokalemia Status: Acute Assessment and Plan: Patient continues to be hypokalemic on am labs. Per surgery patient is to maintain a K > 3.6. Given 40 meq IV x1. Mg WNL. (3) Small bowel obstruction: Code(s): K56.609 - Unspecified intestinal obstruction, unspecified as to partial versus complete obstruction Status: Deleted Assessment and Plan: Abdomen/pelvis CT: A couple abrupt transition points in close apposition in the deep pelvis with intervening fluid-filled but not frankly dilated small bowel suspicious for early closed loop obstruction. SBFT: no contrast progression after 4 hours - NG placed on 05/03, removed on 05/05 - Diet: Clear liquid diet - IV fluids 125 ml/hr - Monitor I&Os, vital signs, neuro status and patient is a fall risk - Monitor serum electrolytes and CBC - General surgery consulted to further evaluate small bowel obstruction s/p laparoscopy enterolysis and release of small bowel obstruction on 05/[address] Bustillos see above (4) Hypertension: Code(s): I10 - Essential (primary) hypertension Status: Chronic Assessment and Plan: Chronic - blood pressures remain stable, continue to monitor Time Spent With Patient Time with patient: 25 - 35 minutes Subjective Date/time seen: 05/11/24 15:24 Interval history: 64-year-old female with hypertension ulcer, and history of laparoscopy, cholecystectomy, and hysterectomy who presented to the emergency department with complaints of abdominal pain. Patients NG tube was accidentally dislodged overnight, bowel function returned. She states that she is feeling okay and denies any nausea/vomiting or abdominal pain. She was started on a full liquid diet and continued to tolerate this well denying any nausea or vomiting. She was evaluated by surgery who noted that patient would be safest staying inpatient until tomorrow, however patient still wanted to return home despite their recommendations. Prior to being discharged patient was to be advanced to a solid diet however returned to her room and she stated that she was not going to eat the solid food. She continues to deny any nausea or vomiting but notes that she will not eat the food and make herself sick. Discussed with patient that if she did not eat the solid food she would not be able to discharge today. She stated understanding. Informed surgery that patient will remain inpatient. Pt is seen and examined. Surgery is following - advancing her diet. She has had BM yesterday, passing gas. NO vomiting Had CT this AM - ileus but no signs of persistent obstruction. On regular diet- ok to keep it per surgery. Continue ambulation. anticipate discharge tomorrow if stable, tolerated food well. Review of Systems Review of Systems: 12 systems were reviewed and are negativ e except for as per HPI. All systems reviewed & are unremarkable except as noted in HPI and below Constitutional: Constitutional: Denies chills Cardiovascular: Cardiovascular: Denies chest pain Respiratory: Respiratory: Denies chest congestion Gastrointestinal: Gastrointestinal: Reports bloating Musculoskeletal: Musculoskeletal: Denies back pain Exam Narrative: General: female in no acute respiratory distress who is nontoxic appearing HEENT: Normocephalic. Atraumatic. Extraocular movement intact. Sclera clear and anicteric. No facial asymmetry. Chest: Lungs are clear to auscultation bilaterally. No wheezes or crackles. CV: Heart was regular rate and rhythm. S1-S2. No murmurs, gallops, or rubs. Abd: Abdomen was soft. Nontender. Distended. Hypoactive bowel sounds. Well healing incisions. Ext: No clubbing, cyanosis, or edema. 2+ DP pulses bilaterally. Neuro: Patient is alert. Speech is clear. Const: General: comfortable Objective Data Vital Signs Vital Signs: Vital Signs - 24 hr 05/10/24 20:00 05/10/24 21:13 05/11/24 05:15 Temperature 97.2 F L 97.1 F L Pulse Rate 104 H 102 H Respiratory Rate 16 18 Blood Pressure 141/85 H 136/88 Pulse Oximetry 97 99 Oxygen Delivery Room Air 05/11/24 08:00 Temperature Pulse Rate Respiratory Rate Blood Pressure Pulse Oximetry 99 Oxygen Delivery Room Air Intake/Output Intake/Output: Intake & Output 05/08/24 05/09/24 05/10/24 05/11/24 23:59 23:59 23:59 23:59 Intake Total 1920 990 770 240 Output Total 141 890 3603 250 Balance 1770 390 -480 -10 Meds/Results Medications: Active Medications Generic Name Dose Route Start Last Admin Trade Name Freq PRN Reason Stop Dose Admin Hydrocodone Bitart/Acetaminophen 1 tab 05/05/24 15:08 Hydrocodone/Acetaminophen (*Crx) 5-325 Mg Tablet PO Q4H PRN Pain Rated 4-6 Hydrocodone Bitart/Acetaminophen 1 tab 05/05/24 15:08 05/10/24 20:02 Hydrocodone/Acetaminophen (*Crx) 7.5-325 Mg Tablet PO 1 tab Q4H PRN Administration Pain Rated 7-10 Amlodipine Besylate 5 mg 05/05/24 14:05 05/11/24 12:37 Amlodipine Besylate 5 Mg Tablet PO 5 mg DAILY TESSA Administration Enoxaparin Sodium 40 mg 05/05/24 09:00 05/11/24 09:16 Enoxaparin 40 Mg/0.4 Ml Syringe SUB-Q 40 mg DAILY TESSA Administration Hydromorphone HCl 0.5 mg 05/02/24 18:56 05/06/24 23:45 Hydromorphone Hcl Inj (*Crx) 1 Mg/Ml Syr IV PUSH 0.5 mg Q3H PRN Administration Pain Rated 4-6 Hydromorphone HCl 1 mg 05/02/24 18:55 05/10/24 18:00 Hydromorphone Hcl Inj (*Crx) 1 Mg/Ml Syr IV PUSH 1 mg Q3H PRN Administration Pain Rated 7-10 Hydromorphone HCl 1 mg 05/05/24 15:08 05/07/24 18:05 Hydromorphone Hcl Inj (*Crx) 1 Mg/Ml Syr IV PUSH 1 mg Q2H PRN Administration Breakthrough Pain Rated 7-10 or NPO Hydromorphone HCl 0.5 mg 05/05/24 15:08 05/08/24 08:52 Hydromorphone Hcl Inj (*Crx) 1 Mg/Ml Syr IV PUSH 0.5 mg Q2H PRN Administration Breakthrough Pain Rated 4-6 or NPO Ibuprofen 800 mg in 200 mls @ 400 mls/hr 05/04/24 15:08 05/09/24 18:03 Caldolor 800 Mg/200 Ml IVPB Infused Q6H PRN Infusion Breakthrough Pain Rated 1-3 or NPO Metoclopramide HCl 10 mg 05/10/24 16:30 05/11/24 12:36 Metoclopramide Hcl 10 Mg Tablet PO 10 mg ACHS TESSA Administration Naloxone HCl 0.1 mg 05/04/24 15:08 Naloxone Hcl 0.4 Mg/Ml Vial IV PUSH Q2M PRN Opiate Reversal Ondansetron HCl 4 mg 05/02/24 10:59 05/08/24 19:55 Ondansetron Inj 4 Mg/2 Ml Vial IV PUSH 4 mg Q4H PRN Administration Nausea Pantoprazole Sodium 40 mg 05/03/24 17:01 05/11/24 09:16 Pantoprazole Sodium Iv 40 Mg Vial IV PUSH 40 mg QAM TESSA Administration Polyethylene Glycol 17 gm 05/05/24 09:00 05/11/24 12:37 Polyethylene Glycol 3350 17 Gm Powd.Pack PO 17 gm QAM TESSA Administration Venlafaxine HCl 75 mg 05/05/24 14:05 05/11/24 12:37 Venlafaxine Hcl Xr 75 Mg Cap.Er.24h PO 75 mg DAILY TESSA Administration Radiology Results: ITS Impressions Small Bowel X-Ray 05/03/24 16:25 IMPRESSION: 1. Small bowel obstruction. Abdomen X-Ray 05/10/24 11:14 IMPRESSION: 1. Persistently dilated small bowel, consistent with small bowel obstruction. Abdomen/Pelvis CT 05/11/24 11:14 IMPRESSION: 1. Dilated small bowel, likely adynamic ileus. 2. Small volume of pelvic ascites. Labs Labs: Laboratory Results - last 24 hr 05/11/24 05:16 WBC 5.1 RBC 3.99 L Hgb 12.4 Hct 38.5 MCV 96.5 MCH 31.1 MCHC 32.2 RDW 14.6 H Plt Count 272 MPV 10.3 Sodium 139 Potassium 3.6 Chloride 102 Carbon Dioxide 29 Anion Gap 8 BUN 7 Creatinine 0.68 L Estim Creat Clear Calc 77 Estimated GFR > 60 Glucose 107 Calcium 9.3 Total Bilirubin 0.6 AST 101 H ALT 185 H Alkaline Phosphatase 154 H Total Protein 7.0 Albumin 3.7 Quality VTE Prophylaxis VTE prophylaxis: mechanical ordered
[2024-05-11 20:53] VITALS: BP 117/63; PULSE 101; RESP 14; TEMP 36.6; O2SAT 96
[2024-05-11] MEDS: HYDROcodone/acetaminophen (*CRX) 7.5-325 MG TABLET 1 TAB PO (21:16)
[2024-05-12] MEDS: METOCLOPRAMIDE HCL 10 MG TABLET PO ×2 (05:39→11:52)
[2024-05-12 05:45] VITALS: BP 125/65; PULSE 71; RESP 16; TEMP 36.7; O2SAT 98
[2024-05-12 06:34] LABS: Alanine Aminotransferase 132 U/L (6-35); Albumin Level 3.7 g/dL (3.5-5.1); Alkaline Phosphatase 141 U/L (38-126); Anion Gap 8 mmol/L (4-12); Aspartate Amino Transferase 53 U/L (14-36); Bilirubin,Total 0.5 mg/dL (0.2-1.3); Blood Urea Nitrogen 9 mg/dL (7-17); Carbon Dioxide 29 mmol/L (22-30); Chloride 102 mmol/L (98-107); Estimated CRCL calculation 80 ml/min; Estimated Glomerular Filt Rate > 60; Glucose 105 mg/dL (65-110); Hematocrit 37.2 % (37.0-47.0); Hemoglobin 12.1 g/dL (12.0-15.0); Mean Corpuscular HGB Conc 32.5 g/dl (32-36); Mean Corpuscular Hemoglobin 31.3 pg (26-34); Mean Corpuscular Volume 96.4 fl (80-100); Mean Platelet Volume 10.4 fl (7.4-10.4); Platelet Count Result 249 k/mm3 (150-375); Potassium 3.4 mmol/L (3.4-5.0); Red Blood Count 3.86 M/mm3 (4.2-5.4); Red Cell Distribution Width 14.6 % (11.5-14.5); Sodium 139 mmol/L (137-145); White Blood Count 5.5 K/mm3 (4.5-10.0)
--- NOTE | 2024-05-12 08:48 | P.PNGS_ITS ---
Progress Note: A&P Assessment and Plan (1) Complete small bowel obstruction: Code(s): K56.601 - Complete intestinal obstruction, unspecified as to cause Status: Acute Assessment and Plan: * Tolerating diet. OK to discharge home today. Discussed discharge instructions. Follow up in office in 2 weeks. (2) Postoperative paralytic ileus: Code(s): T81.89XA - Other complications of procedures, not elsewhere classified, initial encounter; K56.0 - Paralytic ileus Status: Acute Subjective Subjective Date/Time Seen: 05/12/24 08:48 Interval history: Doing well. Tolerating diet. Bowels moving. No nausea or vomiting. Exam GI: Inspection: non-distended and incision (intact with glue) GI Palp: Yes Soft to palpation, No Tenderness to palpation present (GI) and No Guarding due to palpation present (GI) Auscultation: normal bowel sounds Objective Data Vital Signs Vital Signs: Vital Signs - 24 hr 05/11/24 14:00 05/11/24 20:00 05/11/24 20:53 Temperature 97.3 F L 97.9 F Pulse Rate 107 H 101 H Respiratory Rate 18 14 Blood Pressure 127/74 117/63 Pulse Oximetry 97 96 Oxygen Delivery Room Air 05/12/24 05:45 Temperature 98.1 F Pulse Rate 71 Respiratory Rate 16 Blood Pressure 125/65 Pulse Oximetry 98 Oxygen Delivery Intake/Output Intake/Output: Intake & Output 05/09/24 05/10/24 05/11/24 05/12/24 23:59 23:59 23:59 23:59 Intake Total 990 770 540 100 Output Total 600 1250 250 500 Balance 390 -480 290 -400 Meds/Results Medications: Active Medications Generic Name Dose Route Start Last Admin Trade Name Freq PRN Reason Stop Dose Admin Hydrocodone Bitart/Acetaminophen 1 tab 05/05/24 15:08 Hydrocodone/Acetaminophen (*Crx) 5-325 Mg Tablet PO Q4H PRN Pain Rated 4-6 Hydrocodone Bitart/Acetaminophen 1 tab 05/05/24 15:08 05/11/24 21:16 Hydrocodone/Acetaminophen (*Crx) 7.5-325 Mg Tablet PO 1 tab Q4H PRN Administration Pain Rated 7-10 Amlodipine Besylate 5 mg 05/05/24 14:05 05/11/24 12:37 Amlodipine Besylate 5 Mg Tablet PO 5 mg DAILY TESSA Administration Enoxaparin Sodium 40 mg 05/05/24 09:00 05/11/24 09:16 Enoxaparin 40 Mg/0.4 Ml Syringe SUB-Q 40 mg DAILY TESSA Administration Hydromorphone HCl 0.5 mg 05/02/24 18:56 05/06/24 23:45 Hydromorphone Hcl Inj (*Crx) 1 Mg/Ml Syr IV PUSH 0.5 mg Q3H PRN Administration Pain Rated 4-6 Hydromorphone HCl 1 mg 05/02/24 18:55 05/10/24 18:00 Hydromorphone Hcl Inj (*Crx) 1 Mg/Ml Syr IV PUSH 1 mg Q3H PRN Administration Pain Rated 7-10 Hydromorphone HCl 1 mg 05/05/24 15:08 05/07/24 18:05 Hydromorphone Hcl Inj (*Crx) 1 Mg/Ml Syr IV PUSH 1 mg Q2H PRN Administration Breakthrough Pain Rated 7-10 or NPO Hydromorphone HCl 0.5 mg 05/05/24 15:08 05/08/24 08:52 Hydromorphone Hcl Inj (*Crx) 1 Mg/Ml Syr IV PUSH 0.5 mg Q2H PRN Administration Breakthrough Pain Rated 4-6 or NPO Ibuprofen 800 mg in 200 mls @ 400 mls/hr 05/04/24 15:08 05/09/24 18:03 Caldolor 800 Mg/200 Ml IVPB Infused Q6H PRN Infusion Breakthrough Pain Rated 1-3 or NPO Metoclopramide HCl 10 mg 05/10/24 16:30 05/12/24 05:39 Metoclopramide Hcl 10 Mg Tablet PO 10 mg ACHS TESSA Administration Miscellaneous Information 1 each 05/11/24 00:01 05/11/24 21:12 Hydromorphone Will Be Discontinued 05-12-24 Unless Renewed XX 06/10/24 00:00 Not Given CLARIFY TESSA Naloxone HCl 0.1 mg 05/04/24 15:08 Naloxone Hcl 0.4 Mg/Ml Vial IV PUSH Q2M PRN Opiate Reversal Ondansetron HCl 4 mg 05/02/24 10:59 05/08/24 19:55 Ondansetron Inj 4 Mg/2 Ml Vial IV PUSH 4 mg Q4H PRN Administration Nausea Pantoprazole Sodium 40 mg 05/03/24 17:01 05/11/24 09:16 Pantoprazole Sodium Iv 40 Mg Vial IV PUSH 40 mg QAM TESSA Administration Polyethylene Glycol 17 gm 05/05/24 09:00 05/11/24 12:37 Polyethylene Glycol 3350 17 Gm Powd.Pack PO 17 gm QAM TESSA Administration Venlafaxine HCl 75 mg 05/05/24 14:05 05/11/24 12:37 Venlafaxine Hcl Xr 75 Mg Cap.Er.24h PO 75 mg DAILY TESSA Administration Radiology Results: ITS Impressions Small Bowel X-Ray 05/03/24 16:25 IMPRESSION: 1. Small bowel obstruction. Abdomen X-Ray 05/10/24 11:14 IMPRESSION: 1. Persistently dilated small bowel, consistent with small bowel obstruction. Abdomen/Pelvis CT 05/11/24 11:14 IMPRESSION: 1. Dilated small bowel, likely adynamic ileus. 2. Small volume of pelvic ascites. Labs Labs: Laboratory Results - last 24 hr 05/12/24 05:35 WBC 5.5 RBC 3.86 L Hgb 12.1 Hct 37.2 MCV 96.4 MCH 31.3 MCHC 32.5 RDW 14.6 H Plt Count 249 MPV 10.4 Sodium 139 Potassium 3.4 Chloride 102 Carbon Dioxide 29 Anion Gap 8 BUN 9 Creatinine 0.65 L Estim Creat Clear Calc 80 Estimated GFR > 60 Glucose 105 Calcium 9.0 Total Bilirubin 0.5 AST 53 H ALT 132 H Alkaline Phosphatase 141 H Total Protein 7.0 Albumin 3.7
[2024-05-12] MEDS: polyethylene glycoL 3350 17 GM POWD.PACK PO (09:45)
[2024-05-12] MEDS: amLODIPine BESYLATE 5 MG TABLET PO (09:45)
[2024-05-12] MEDS: PANTOPRAZOLE SODIUM IV 40 MG VIAL IV PUSH (09:45)
[2024-05-12] MEDS: ENOXAPARIN 40 MG/0.4 ML SYRINGE SUB-Q (09:45)
[2024-05-12] MEDS: VENLAFAXINE HCL XR 75 MG CAP.ER.24H PO (09:45)
--- NOTE | 2024-05-12 12:21 | P.DS_ITS ---
DS: Admitting Diagnosis Discharge Date 05/12 Admitting Diagnosis abd pain DS: Discharge Diagnosis Discharge Diagnosis (1) Postoperative paralytic ileus: Code(s): T81.89XA - Other complications of procedures, not elsewhere classified, initial encounter; K56.0 - Paralytic ileus Status: Acute (2) Hypokalemia: Code(s): E87.6 - Hypokalemia Status: Acute (3) Small bowel obstruction: Code(s): K56.609 - Unspecified intestinal obstruction, unspecified as to partial versus complete obstruction Status: Deleted (4) Hypertension: Code(s): I10 - Essential (primary) hypertension Status: Chronic DS: Summary Hospital Course Hospital Course: 64-year-old female with hypertension ulcer, and history of laparoscopy, cholecystectomy, and hysterectomy who presented to the emergency department with complaints of abdominal pain. 05/04 pt had Laparoscopic enterolysis, release of small-bowel obstruction with Dr Deutsch. She developed Postoperative ileus likely secondary to hypokalemia. She was kept NPO and had NG tube for nasogastric tube decompression. Patients NG tube was accidentally dislodged on 05/09, bowel function returned. She states that she was feeling okay and denied any nausea/vomiting or abdominal pain. She was started on a full liquid diet and continued to tolerate this well denying any nausea or vomiting. She was still having abd discomfort. on 05/10- KUB showed persistent dilated bowel but contrast in colon. Couldn't get SBFT because patient had eaten lunch. 05/11- CT this AM shows ileus but no signs of persistent obstruction. Continue regular diet. OK to discharge once tolerating this for a couple meals. Encouraged frequent ambulation to help with bowel function returning. On Reglan and MiraLax. 05/12 pt tolerated meals well- no abd discomfort. OK to discharge per surgery. F/U in their office in 2 weeks Status at Discharge Functional status at discharge: independent ambulation Overall status at discharge: patient is progressing back to baseline Time Spent with Patient Time attestation: Total time spent providing and/or coordinating discharge services: Time spent: Greater than 30 minutes Exam Narrative: General: female in no acute respiratory distress who is nontoxic appearing HEENT: Normocephalic. Atraumatic. Extraocular movement intact. Sclera clear and anicteric. No facial asymmetry. Chest: Lungs are clear to auscultation bilaterally. No wheezes or crackles. CV: Heart was regular rate and rhythm. S1-S2. No murmurs, gallops, or rubs. Abd: Abdomen was soft. Nontender. normoactive bowel sounds. Well healing incisions. Ext: No clubbing, cyanosis, or edema. 2+ DP pulses bilaterally. Neuro: Patient is alert. Speech is clear. Const: General: comfortable DS: Data Data Completed and Pending Completed studies during hospitalization: abd xray, ct, small bowel xray Labs on day of discharge: Labs from last 24 hours 05/12/24 05:35 WBC 5.5 RBC 3.86 L Hgb 12.1 Hct 37.2 MCV 96.4 MCH 31.3 MCHC 32.5 RDW 14.6 H Plt Count 249 MPV 10.4 Sodium 139 Potassium 3.4 Chloride 102 Carbon Dioxide 29 Anion Gap 8 BUN 9 Creatinine 0.65 L Estim Creat Clear Calc 80 Estimated GFR > 60 Glucose 105 Calcium 9.0 Total Bilirubin 0.5 AST 53 H ALT 132 H Alkaline Phosphatase 141 H Total Protein 7.0 Albumin 3.7 Discharge Plan Discharge Attending physician on discharge: Gruinder Randhawa Consulting providers: Darrick Deutsch Discharging Clinician: Gabby Garner Patient Disposition: Home, Self-Care Activity: may shower Diet: as tolerated and heart healthy Discharge Instructions: DISCHARGE INSTRUCTION SHEET FOR DR. DEUTSCH PATIENT TO TAKE HOME 1. May shower, no soaking in bath x 2weeks. 2. Call office for: * Wound increasingly painful or bleeding * Vomiting * Fever of greater than 101 degrees 3. If no bowel movement for three days, take 1 oz. (30 ml) Milk of Magnesia or MiraLax 17g 1 to 2 times daily. 4. No heavy lifting > 10-15 pounds x 2 weeks 5. No driving for 3 days or while taking narcotic pain medications. 6. Ice to surgical site for 48 hours (30 min on, then 30 min off). 7. Up walking 10-30 minutes three times per day. 8. Resume previous home medications. 9. Follow-up 10-14 days in office for wound check or as previously scheduled. ([id number]) 10. Oral pain medications prescription to be sent to pharmacy. Take Tylenol 500mg every 6 hours and Ibuprofen 600mg every 6 hours for the first 2 days, then as needed. 11. NUTRITION: Start out by drinking fluids and increase your diet as tolerated. If you experience nausea, try dry toast, crackers, and 7-UP. If nausea or vomiting persists, contact your surgeon?s office. Revised July 2018 Patient Instructions: Antibiotic Form, Apixaban (By mouth), Bowel Obstruction (DC) Patient Language: Lithuanian Stand Alone Forms: General Discharge Information Follow-up/Referrals: Darrick Deutsch DO [Physician] - 2 Weeks Discharge Medications: Continued amlodipine 5 mg tablet 5 mg PO DAILY glycopyrrolate 1 mg tablet 1 mg PO BID venlafaxine 75 mg capsule,extended release 24hr 75 mg PO DAILY gabapentin 300 mg capsule 300 mg PO QHS Date of admission: 05/02/24 10:59 Primary Care Provider: Patrick Bhatia Admitting Provider: Delta Mora Attending physician on admission: Anai Hammond Condition: Stable Quality VTE Prophylaxis VTE prophylaxis: mechanical ordered Hospitalist MIPS Heart Failure (Exclusion) Patient has history of Heart Transplant or Left Ventricular Assistive Device?: No IF YES, STOP HERE Heart Failure (Qualifier) Patient has current or prior documentation of LVEF less than or equal to 40%, or mod/servere depressed LVSF?: No IF NO, STOP HERE
== END 2024-05-12 14:15 | disposition home or self-care (01) | DRG 336 ==
LOC: ANHED 11:06 → ANH3MEDSUR 11:48
PROVIDERS: Nurse Practitioner Family; Student in an Organized Health Care Education/Training Program; Surgery; Admitting Provider Internal Medicine; Emergency Provider Family Medicine; Visit Provider Nurse Practitioner
PROC: 0DN84ZZ Release Small Intestine, Percutaneous Endoscopic Approach (ICD-10-PCS; CPT 49320; principal; 2024-05-04 12:30)
DX: K56.52 Intestinal adhesions [bands] with complete obstruction (principal); K91.89 Other postprocedural complications and disorders of digestive system; E87.6 Hypokalemia; T81.89XA Other complications of procedures, not elsewhere classified, initial encounter; K56.0 Paralytic ileus; I10 Essential (primary) hypertension; Z90.710 Acquired absence of both cervix and uterus; Z86.16 Personal history of COVID-19; Z90.49 Acquired absence of other specified parts of digestive tract
CPT/HCPCS: 36415; 74018; 74177; 74250; 80048; 80053; 81001; 83605; 83690; 83735; 84100; 84132; 85025; 85027; 86850; 86900; 86901; 96374; 96375; 96376; 99285; A9270; J0330; J0690; J1100; J1171; J1650; J1741; J1836; J1885; J2003; J2250; J2270; J2371; J2405; J2470; J2704; J3010; J3475; J3480; J7030; J7040; J7120; Q9967